=== PATIENT | female | born 1990 | race Caucasian/White ===

== ENCOUNTER → 2016-12-04 | Outpatient (CLI) | payer OTHER ==
--- NOTE | 2016-12-04 14:46 | XR ---
EXAMINATION TYPE: XR chest 2V DATE OF EXAM: 12/04/2016 2:43 PM COMPARISON: NONE HISTORY: 07/13/2016 TECHNIQUE: Frontal and lateral views of the chest are obtained. FINDINGS: There is no focal air space opacity, pleural effusion, or pneumothorax seen. The cardiac silhouette size is within normal limits. Sternotomy wires are in place. The osseous structures are i ntact. IMPRESSION: No acute cardiopulmonary process.
== END | disposition home or self-care (01) ==
LOC: RADXRMAIN 14:22
PROVIDERS: ATTEND Physician Assistant
DX: R07.81 Pleurodynia (principal)
CPT/HCPCS: 71020

== ENCOUNTER 2016-12-28 18:11 | Emergency (ER) | payer OTHER ==
[2016-12-28] MEDS ORDERED: SODIUM CHLORIDE 0.9% 500 ML IV ONE (19:38)
[2016-12-28] MEDS ORDERED: SODIUM CHLORIDE 0.9% 1,000 ML IV SCH (19:45)
--- NOTE | 2016-12-28 19:52 | ED ---
General Adult HPI - General Chief complaint: Headache Stated complaint: Sent by Neurologist/Lethargy Time Seen by Provider: 12/28/16 19:02 Source: patient, family, RN notes reviewed, old records reviewed Mode of arrival: ambulatory Limitations: no limitations - History of Present Illness Initial comments: Chief complaint and history of present illness a 26-year-old female who is being worked up by her neurologist for possibility of MS. Today she had episodes where she had right eye discomfort. No blindness but would last for less than 5 minutes on several occasions then at around 1 PM she had what felt like a profound weakness to her lower extremities that wasn't a sensation of like her legs were sleeping. This is since subsided as well. Otherwise no headache no shortness of breath no GI/ problems. The patient is being worked up for MS she has had an MRI which showed lesions on the right side of her brain she has had an LP which did not show any bands. She was admitted to [facility] 2 years ago with a diagnosis of optic neuritis treated for 7 days with IV steroids with good results. She did have a sore throat and positive for flu approximately 10 days ago. - Related Data Home Medications Medication Instructions Recorded Confirmed Acetaminophen Tab [Tylenol Tab] 650 mg PO Q4H PRN 12/28/16 12/28/16 [place] Fe 12/04 1 tab PO DAILY 12/28/16 12/28/16 Allergies Allergy/AdvReac Type Severity Reaction Status Date / Time gluten Allergy Unknown Verified 12/28/16 19:06 dairy Allergy Unknown Uncoded 12/28/16 18:32 Review of Systems ROS Statement: Those systems with pertinent positive or pertinent negative responses have been documented in the HPI. Review of systems at this time no headache or eye pain. The discomfort comes and goes to the right eye. No sore throat no chest pain or shortness of breath no GI/ problems at this time. Mild generalized weakness. All systems were otherwise reviewed. Past medical problems significant for possibility of MS still being worked up. Patient's nonsmoker drinks alcohol rarely. Surgeries include adenoids and open heart surgery which is 4 years old closed ASD. Also possibility of POTS. ROS Other: All systems not noted in ROS Statement are negative. Past Medical History Past Medical History: Neurologic Disorder Additional Past Medical History / Comment(s): POTS,. tests being done to R/O multiple sclerosis History of Any Multi-Drug Resistant Organisms: None Reported Past Surgical History: Adenoidectomy Additional Past Surgical History / Comment(s): Open heart for congenital defect , ASD Past Anesthesia/Blood Transfusion Reactions: No Reported Reaction Past Psychological History: No Psychological Hx Reported Smoking Status: Never smoker Past Alcohol Use History: None Reported Past Drug Use History: None Reported - Past Family History Sister(s) Family Medical History: No Reported History Additional Family Medical History / Comment(s): kidney issues General Exam - General Exam Comments Initial Comments: General: The patient is awake and alert, in no distress, and does not appear acutely ill. Currently symptom free. Vital signs showed temperature 97.9 pulse 77 respiratory rate 18 pulse ox 99% room air blood pressure 128/80. Eye: Pupils are equal, round and reactive to light, extra-ocular movements are intact ; there is normal conjunctiva bilaterally. No signs of icterus. No eye pain at this time. Ears, nose, mouth and throat: There are moist mucous membranes and no oral lesions. Neck: The neck is supple, there is no tenderness . Cardiovascular: There is a regular rate and rhythm. No murmur, rub or gallop is appreciated. Respiratory: Lungs are clear to auscultation, respirations are non-labored, breath sounds are equal. No wheezes, stridor, rales, or rhonchi. Gastrointestinal: Soft, non-distended, non-tender abdomen without masses or organomegaly noted. There is no rebound or guarding present. No CVA tenderness. Bowel sounds are unremarkable. Back: There is no tenderness to palpation in the midline. There is no obvious deformity. No rashes noted. Musculoskeletal: Normal ROM, no tenderness, There is no pedal edema. There is no calf tenderness or swelling. Sensation intact. Pulses equal bilaterally 2+. Neurological: CN II-XII intact, There are no obvious motor or sensory deficits. Coordination appears grossly intact. Speech is normal. No focal or lateralizing findings. Skin: Skin is warm and dry and no rashes or lesions are noted. Limitations: no limitations Course Vital Signs 12/28/16 18:29 Temperature 97.9 F Pulse Rate 77 Respiratory 18 Rate Blood Pressure 128/80 O2 Sat by Pulse 99 Oximetry Medical Decision Making - Medical Decision Making Medical decision-making. Patient's white count 4.7 hemoglobin 13 hematocrit 37. Potassium is 4.3 and sodium is 141. BUN 9 creatinine 0.7 with a GFR greater than 60. Glucose 86. We did discuss being admitted with IV steroids for treatment for what might be a recurrent episode of her MS. The patient has decided not to be admitted today she has she feels tomorrow and discuss it with her neurologist in the city and make a decision at that time. She states she is symptom-free at this time. - Lab Data Result diagrams: 12/28/16 20:15 12/28/16 20:15 Lab Results 12/28/16 12/28/16 Range/Units 20:15 20:15 WBC 4.7 (3.8-10.6) k/uL RBC 3.91 (3.80-5.40) m/uL Hgb 13.2 (11.4-16.0) gm/dL Hct 37.2 (34.0-46.0) % MCV 95.2 (80.0-100.0) fL MCH 33.7 (25.0-35.0) pg MCHC 35.4 (31.0-37.0) g/dL RDW 12.8 (11.5-15.5) % Plt Count 242 (150-450) k/uL Neutrophils % 53 % Lymphocytes % 35 % Monocytes % 6 % Eosinophils % 2 % Basophils % 0 % Neutrophils # 2.5 (1.3-7.7) k/uL Lymphocytes # 1.6 (1.0-4.8) k/uL Monocytes # 0.3 (0-1.0) k/uL Eosinophils # 0.1 (0-0.7) k/uL Basophils # 0.0 (0-0.2) k/uL Sodium 141 (137-145) mmol/L Potassium 4.3 (3.5-5.1) mmol/L Chloride 105 (98-107) mmol/L Carbon Dioxide 23 (22-30) mmol/L Anion Gap 13 mmol/L BUN 9 (7-17) mg/dL Creatinine 0.72 (0.52-1.04) mg/dL Est GFR (MDRD) Af Amer >60 (>60 ml/min/1.73 sqM) Est GFR (MDRD) Non-Af >60 (>60 ml/min/1.73 sqM) Glucose 88 (74-99) mg/dL Calcium 9.6 (8.4-10.2) mg/dL Total Bilirubin 0.6 (0.2-1.3) mg/dL AST 23 (14-36) U/L ALT 37 (9-52) U/L Alkaline Phosphatase 46 (38-126) U/L Total Protein 7.4 (6.3-8.2) g/dL Albumin 4.2 (3.5-5.0) g/dL Disposition Clinical Impression: Stable multiple sclerosis Disposition: HOME SELF-CARE Condition: Fair Instructions: Autoimmune Disease (ED) Additional Instructions: Talk to your neurologist. Return emergency room as needed. Time of Disposition: 21:33
[2016-12-28 20:35] LABS: Basophils % (A) 0 %; CH 34.4; CHCM 36.3; Eosinophils # (A) 0.1 k/uL (0-0.7); Eosinophils % (A) 2 %; HCT 37.2 % (34.0-46.0); HDW 2.86; HGB 13.2 gm/dL (11.4-16.0); Luc # (Auto) 0.17; Luc % (Auto) 4; Lymphocytes # (A) 1.6 k/uL (1.0-4.8); Lymphocytes % (A) 35 %; MCH 33.7 pg (25.0-35.0); MCHC 35.4 g/dL (31.0-37.0); MCV 95.2 fL (80.0-100.0); Mean Platelet Volume 7.7; Monocytes # (A) 0.3 k/uL (0-1.0); Monocytes % (A) 6 %; Neutrophils # (A) 2.5 k/uL (1.3-7.7); Neutrophils % (A) 53 %; RBC 3.91 m/uL (3.80-5.40); RDW 12.8 % (11.5-15.5); WBC 4.7 k/uL (3.8-10.6); WBC (Perox) 4.84
[2016-12-28 20:56] LABS: ALT 37 U/L (9-52); AST 23 U/L (14-36); Alkaline Phosphatase 46 U/L (38-126); Anion Gap 13 mmol/L; Blood Urea Nitrogen 9 mg/dL (7-17); Calcium 9.6 mg/dL (8.4-10.2); Carbon Dioxide 23 mmol/L (22-30); Chloride 105 mmol/L (98-107); Glucose 88 mg/dL (74-99); Non-African American GFR(MDRD) >60 (>60 ml/min/1.73 sqM); Potassium 4.3 mmol/L (3.5-5.1); Sodium 141 mmol/L (137-145); Total Bilirubin 0.6 mg/dL (0.2-1.3); Total Protein 7.4 g/dL (6.3-8.2)
[2016-12-28 21:47] VITALS: BP 115/68; PULSE 80; RESP 16; TEMP 98.3
== END 2016-12-28 21:47 | disposition home or self-care (01) ==
LOC: EC 18:11
DX: G35 Multiple sclerosis (principal); M35.9 Systemic involvement of connective tissue, unspecified; R51 Headache; Z79.899 Other long term (current) drug therapy; Z91.011 Allergy to milk products; Z91.09 Other allergy status, other than to drugs and biological substances
CPT/HCPCS: 36415; 80053; 85025; 96360; 99284

== ENCOUNTER 2017-01-20 08:10 | Inpatient (IN) | payer OTHER ==
[2017-01-20 09:00] LABS: Appearance,Urine Clear (Clear); Bilirubin,Urine Negative (Negative); Glucose,Urine (UA) Negative (Negative); Ketones,Urine Negative (Negative); Leukocyte Esterase,Urine Negative (Negative); Nitrite,Urine Negative (Negative); Protein,Urine Negative (Negative); Specific Gravity,Urine 1.012 (1.001-1.035); UA Billing (MACRO vs. MICRO) CHEM; Urobilinogen,Urine <2.0 mg/dL (<2.0)
--- NOTE | 2017-01-20 09:02 | ED ---
Neuro HPI <Sarthak Blood - Last Filed: 01/20/17 10:44> - General Source: patient, RN notes reviewed Mode of arrival: ambulatory Limitations: no limitations - History of Present Illness Is the patient presenting with stroke symptoms?: No <Russell Madera - Last Filed: 01/20/17 10:46> - General Chief Complaint: Neuro Symptoms/Deficit Stated Complaint: difficulty seeing left eye Time Seen by Provider: 01/20/17 08:22 - History of Present Illness Initial Comments: This a 26-year-old female presents emergency Department with chief complaint of visual loss to her left eye. Patient states that she woke up early this morning around 3 or 4 with left eye pain but did not put her glasses on at that time. Patient states that when she did finally wake up and put her glass and she noted that she had some visual changes and loss of her left eye. Patient states since that her symptoms have progressively gotten worse. Patient states that she has had optic neuritis in the past treated with steroids which resulted. Patient states she is currently seeing a neurologist because of her symptoms of MS. Patient has multiple lesions on her MRI though her lumbar puncture was negative. Patient states that she has recurrent bouts of weakness , shooting type pains in her extremities. Patient states most the time she has been treated with steroids and symptoms to resolve. Patient states she was here 2 weeks ago and was told that she needed be admitted for possible MS exacerbation and that they warned her about possible visual loss though she declined at that time. Patient states now she is presenting with these symptoms. Patient states when she had optic neuritis in the past she had visual loss in both eyes. (Russell Madera) - Related Data Home Medications: Home Medications Medication Instructions Recorded Confirmed Acetaminophen Tab [Tylenol Tab] 650 mg PO Q4H PRN 12/28/16 01/20/17 [place] Fe 12/04 1 tab PO DAILY 12/28/16 01/20/17 Allergies/Adverse Reactions: Allergies Allergy/AdvReac Type Severity Reaction Status Date / Time gluten Allergy Unknown Verified 01/20/17 08:32 dairy Allergy Unknown Uncoded 01/20/17 08:21 Review of Systems ROS Other: All systems not noted in ROS Statement are negative. <Sarthak Blood - Last Filed: 01/20/17 10:44> ROS Other: All systems not noted in ROS Statement are negative. <Russell Madera - Last Filed: 01/20/17 10:46> ROS Statement: Those systems with pertinent positive or pertinent negative responses have been documented in the HPI. General Exam Limitations: no limitations General appearance: alert, in no apparent distress Head exam: Present: atraumatic, normocephalic, normal inspection Eye exam: Present: normal appearance, PERRL, EOMI. Absent: scleral icterus, conjunctival injection, periorbital swelling Pupils: Present: normal accommodation Expanded Eyelids: Normal Inspection: Bilateral Pupils: Regular, Round: Bilateral Sclera/Conjunctival: Normal Inspection: Bilateral Anterior chamber: Normal Inspection: Bilateral Visual acuity (R) = 20/: 25 Visual acuity (L) = 20/: 200 With correction: Yes IOP (L) in mmH IOP measured with: Tonopen ENT exam: Present: normal exam, normal oropharynx, mucous membranes moist, TM's normal bilaterally, normal external ear exam Neck exam: Present: normal inspection, full ROM. Absent: tenderness, meningismus, lymphadenopathy Respiratory exam: Present: rhonchi (Right). Absent: normal lung sounds bilaterally, respiratory distress, wheezes, rales, stridor Cardiovascular Exam: Present: regular rate, normal rhythm, normal heart sounds. Absent: systolic murmur, diastolic murmur, rubs, gallop, clicks Neurological exam: Present: alert, oriented X3, CN II-XII intact, reflexes normal, other (Finger to nose intact bilaterally without over shooting.). Absent: motor sensory deficit Skin exam: Present: warm, dry, intact, normal color. Absent: rash <Russell Madera - Last Filed: 01/20/17 10:46> Stroke MDM - Lab Data Result diagrams: 01/20/17 08:50 01/20/17 08:50 <Sarthak Blood - Last Filed: 01/20/17 10:44> - Lab Data Result diagrams: 01/20/17 08:50 01/20/17 08:50 <Russell Madera - Last Filed: 01/20/17 10:46> - Lab Data Lab Results 01/20/17 01/20/17 01/20/17 Range/Units 08:40 08:40 08:50 WBC (3.8-10.6) k/uL RBC (3.80-5.40) m/uL Hgb (11.4-16.0) gm/dL Hct (34.0-46.0) % MCV (80.0-100.0) fL MCH (25.0-35.0) pg MCHC (31.0-37.0) g/dL RDW (11.5-15.5) % Plt Count (150-450) k/uL Neutrophils % % Lymphocytes % % Monocytes % % Eosinophils % % Basophils % % Neutrophils # (1.3-7.7) k/uL Lymphocytes # (1.0-4.8) k/uL Monocytes # (0-1.0) k/uL Eosinophils # (0-0.7) k/uL Basophils # (0-0.2) k/uL ESR (0-20) mm/hr Sodium 143 (137-145) mmol/L Potassium 3.9 (3.5-5.1) mmol/L Chloride 104 (98-107) mmol/L Carbon Dioxide 26 (22-30) mmol/L Anion Gap 13 mmol/L BUN 13 (7-17) mg/dL Creatinine 0.74 (0.52-1.04) mg/dL Est GFR (MDRD) Af Amer >60 (>60 ml/min/1.73 sqM) Est GFR (MDRD) Non-Af >60 (>60 ml/min/1.73 sqM) Glucose 92 (74-99) mg/dL Calcium 9.7 (8.4-10.2) mg/dL Total Bilirubin 0.8 (0.2-1.3) mg/dL AST 20 (14-36) U/L ALT 28 (9-52) U/L Alkaline Phosphatase 55 (38-126) U/L C-Reactive Protein <5.0 (<10.0) mg/L Total Protein 8.2 (6.3-8.2) g/dL Albumin 4.7 (3.5-5.0) g/dL Urine Color Yellow Urine Appearance Clear (Clear) Urine pH 6.0 (5.0-8.0) Ur Specific [place] 1.012 (1.001-1.035) Urine Protein Negative (Negative) Urine Glucose (UA) Negative (Negative) Urine Ketones Negative (Negative) Urine Blood Negative (Negative) Urine Nitrate Negative (Negative) Urine Bilirubin Negative (Negative) Urine Urobilinogen <2.0 (<2.0) mg/dL Ur Leukocyte Esterase Negative (Negative) Urine HCG, Qual Not Detected (Not Detectd) 01/20/17 Range/Units 08:50 WBC 4.8 (3.8-10.6) k/uL RBC 4.21 (3.80-5.40) m/uL Hgb 14.4 (11.4-16.0) gm/dL Hct 39.5 (34.0-46.0) % MCV 93.9 (80.0-100.0) fL MCH 34.2 (25.0-35.0) pg MCHC 36.4 (31.0-37.0) g/dL RDW 12.8 (11.5-15.5) % Plt Count 240 (150-450) k/uL Neutrophils % 63 % Lymphocytes % 28 % Monocytes % 5 % Eosinophils % 2 % Basophils % 1 % Neutrophils # 3.0 (1.3-7.7) k/uL Lymphocytes # 1.3 (1.0-4.8) k/uL Monocytes # 0.2 (0-1.0) k/uL Eosinophils # 0.1 (0-0.7) k/uL Basophils # 0.0 (0-0.2) k/uL ESR 8 (0-20) mm/hr Sodium (137-145) mmol/L Potassium (3.5-5.1) mmol/L Chloride (98-107) mmol/L Carbon Dioxide (22-30) mmol/L Anion Gap mmol/L BUN (7-17) mg/dL Creatinine (0.52-1.04) mg/dL Est GFR (MDRD) Af Amer (>60 ml/min/1.73 sqM) Est GFR (MDRD) Non-Af (>60 ml/min/1.73 sqM) Glucose (74-99) mg/dL Calcium (8.4-10.2) mg/dL Total Bilirubin (0.2-1.3) mg/dL AST (14-36) U/L ALT (9-52) U/L Alkaline Phosphatase (38-126) U/L C-Reactive Protein (<10.0) mg/L Total Protein (6.3-8.2) g/dL Albumin (3.5-5.0) g/dL Urine Color Urine Appearance (Clear) Urine pH (5.0-8.0) Ur Specific [place] (1.001-1.035) Urine Protein (Negative) Urine Glucose (UA) (Negative) Urine Ketones (Negative) Urine Blood (Negative) Urine Nitrate (Negative) Urine Bilirubin (Negative) Urine Urobilinogen (<2.0) mg/dL Ur Leukocyte Esterase (Negative) Urine HCG, Qual (Not Detectd) Past Medical History Past Medical History: Neurologic Disorder Additional Past Medical History / Comment(s): POTS,. tests being done to R/O multiple sclerosis History of Any Multi-Drug Resistant Organisms: None Reported Past Surgical History: Adenoidectomy Additional Past Surgical History / Comment(s): Open heart for congenital defect , ASD Past Anesthesia/Blood Transfusion Reactions: No Reported Reaction Past Psychological History: No Psychological Hx Reported Smoking Status: Never smoker Past Alcohol Use History: None Reported Past Drug Use History: None Reported - Past Family History Sister(s) Family Medical History: No Reported History Additional Family Medical History / Comment(s): kidney issues <Russell Madera - Last Filed: 01/20/17 10:46> Course <Sarthak Blood - Last Filed: 01/20/17 10:44> <Russell Madera - Last Filed: 01/20/17 10:46> Vital Signs 01/20/17 01/20/17 08:17 09:59 Temperature 99.2 F Pulse Rate 87 81 Respiratory 16 18 Rate Blood Pressure 137/84 126/73 O2 Sat by Pulse 99 99 Oximetry - Reevaluation(s) Reevaluation #1: 01/20/17 10:44 Patient reevaluated by myself, Dr. Blood. Patient states she has had similar episodes approximate 4 times previously associated with optic neuritis. Patient states she has had visual loss since she woke this morning, somewhat worse than when she woke. Patient has mild discomfort and states that is somewhat chronic. Patient is being evaluated for MS. Patient had MRI with brain lesions however had a negative lumbar puncture. Pupils equal round reactive to light. Funduscopic exam without acute abnormality. Case was discussed in detail with Dr. De Anda, who will admit his patient. Consults will be placed with neurology and ophthalmology. (Sarthak Blood) Disposition <Sarthak Blood - Last Filed: 01/20/17 10:44> <Russell Madera - Last Filed: 01/20/17 10:46> Clinical Impression: Optic neuritis, Visual changes Disposition: ADMITTED IP TO THIS HOSP Condition: Stable
[2017-01-20 09:20] LABS: ALT 28 U/L (9-52); AST 20 U/L (14-36); Alkaline Phosphatase 55 U/L (38-126); Anion Gap 13 mmol/L; Blood Urea Nitrogen 13 mg/dL (7-17); Calcium 9.7 mg/dL (8.4-10.2); Carbon Dioxide 26 mmol/L (22-30); Chloride 104 mmol/L (98-107); Glucose 92 mg/dL (74-99); Non-African American GFR(MDRD) >60 (>60 ml/min/1.73 sqM); Potassium 3.9 mmol/L (3.5-5.1); Sodium 143 mmol/L (137-145); Total Bilirubin 0.8 mg/dL (0.2-1.3); Total Protein 8.2 g/dL (6.3-8.2)
[2017-01-20 09:33] LABS: Basophils % (A) 1 %; CH 34.3; CHCM 36.7; Eosinophils # (A) 0.1 k/uL (0-0.7); Eosinophils % (A) 2 %; HCT 39.5 % (34.0-46.0); HDW 2.92; HGB 14.4 gm/dL (11.4-16.0); Luc # (Auto) 0.13; Luc % (Auto) 3; Lymphocytes # (A) 1.3 k/uL (1.0-4.8); Lymphocytes % (A) 28 %; MCH 34.2 pg (25.0-35.0); MCHC 36.4 g/dL (31.0-37.0); MCV 93.9 fL (80.0-100.0); Mean Platelet Volume 8.1; Monocytes # (A) 0.2 k/uL (0-1.0); Monocytes % (A) 5 %; Neutrophils % (A) 63 %; RBC 4.21 m/uL (3.80-5.40); RDW 12.8 % (11.5-15.5); WBC 4.8 k/uL (3.8-10.6); WBC (Perox) 4.93
--- NOTE | 2017-01-20 09:52 | XR ---
EXAMINATION TYPE: XR chest 2V DATE OF EXAM: 01/20/2017 9:48 AM COMPARISON: 12/04/2016 INDICATION: Pain visual disturbance left eye asthma TECHNIQUE: Single frontal view of the chest is obtained. FINDINGS: The heart size is normal. The pulmonary vasculature is normal. The lungs are clear. Sternotomy wires are noted. No significant interval changes evident. IMPRESSION: 1. No acute pulmonary process.
[2017-01-20 10:16] LABS: C Reactive Protein <5.0 mg/L (<10.0)
--- NOTE | 2017-01-20 10:27 | CT ---
EXAMINATION TYPE: CT brain wo con DATE OF EXAM: 01/20/2017 10:24 AM COMPARISON: NONE HISTORY: Patient complains of increasing blurriness of left eye vision starting this AM. CT DLP: 1000.[address] of the brain was performed. The ventricles, basal cisterns and sulci overlying the cerebral convexities demonstrate a normal appe arance. There is no evidence for intracranial hemorrhage or sulcal effacement. No mass effects are seen. Osseous calvarium is intact. If symptoms persist consider MRI as clinically warranted. IMPRESSION: 1. No acute intracranial process is seen at this time.
[2017-01-20 10:41] LABS: Erythrocyte Sedimentation Rate 8 mm/hr (0-20)
[2017-01-20] MEDS ORDERED: NALOXONE 0.4 MG/ML 1 ML VIAL IV PRN (10:47)
[2017-01-20] MEDS ORDERED: ONDANSETRON 4 MG/2 ML VIAL IVP PRN (10:47)
[2017-01-20 16:22] VITALS: BMI 28.3
[2017-01-20 17:05] LABS: Glucose,Whole Blood 133 mg/dL (75-99)
[2017-01-20] MEDS: INSULIN LISPRO (humaLOG) 300 UNIT/3 ML VIAL SQ SCH ×2 (17:51→21:19)
[2017-01-20 18:47] LABS: Hemoglobin A1C 4.4 % (4.2-6.1)
--- NOTE | 2017-01-20 19:49 | P.CNNES ---
History of Present Illness Consult date: 01/20/17 Reason for Consult: Patient with acute optic neuritis and probable MS. History of Present Illness: This patient is a 26-year-old right-handed white female who was admitted to hospital with acute left eye vision loss this morning. According to the patient she woke this morning and was unable to see out of her left eye. She has had 4 other episodes of optic neuritis in the past. Patient is undergone extensive evaluation for multiple sclerosis over the last several years. She is currently being followed by an MS specialist at the [facility]. She was seen by the specialist several times last year and a definitive diagnosis of MS has not been given. She underwent a lumbar puncture last year which was negative for MS. She was started on Copaxone but was discontinued off of the treatment for MS as a definitive diagnosis could not be reached last year. The patient as noted has had several episodes of optic neuritis involving both eyes. She complains of weakness and muscle weakness in the legs. She has undergone MRI of the brain last year which did reveal white matter changes in the cerebral hemispheres. Apparently she continues to follow with her MS specialists in [place] and is awaiting of recheck with her now that she has been readmitted for MS type symptoms. The patient was seen in the ER and underwent a computed tomography scan of the brain which was reported negative for any acute changes. She was started on IV Solu-Medrol and admitted to the hospital. She was seen by ophthalmology today who had diagnosed her with left eye optic neuritis. She will need IV Solu-Medrol for 3 days followed by a slow prednisone taper. Patient is advised to follow-up with her MS specialist. Since a definitive diagnosis has not been made we suggest that she be seen in a specialized MS clinic at either the [facility] or [facility]. The patient has had multiple bouts suggesting MS exacerbation. As noted a definitive diagnosis has not been given. We will continue to follow her progress during this admission and have recommended to continue with IV Solu-Medrol at this time. Her overall prognosis at this time remains guarded. Review of Systems Constitutional: Denies chills, Denies fever Eyes: denies blurred vision, denies pain Ears, nose, mouth and throat: Denies headache, Denies sore throat Cardiovascular: Denies chest pain, Denies shortness of breath Respiratory: Denies cough Gastrointestinal: Denies abdominal pain, Denies diarrhea, Denies nausea, Denies vomiting Genitourinary: Denies dysuria, Denies hematuria Musculoskeletal: Denies myalgias Integumentary: Denies pruritus, Denies rash Neurological: Reports double vision, Reports headaches, Reports loss of vision, Reports paresthesias, Reports spasticity, Reports visual changes, Denies numbness, Denies weakness Psychiatric: Denies anxiety, Denies depression Endocrine: Denies fatigue, Denies weight change Past Medical History Past Medical History: Eye Disorder, Neurologic Disorder, Syncope Additional Past Medical History / Comment(s): Optic neuritis in past (has caused visual loss bilateral eyes), POTS-hyponatremia and has had past syncopal episode, bouts of weakness and shooting pain down extremities at times-being worked up for MS, MRI showed lesions/LP was negative per pt, possible asthma. 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 Past Anesthesia/Blood Transfusion Reactions: No Reported Reaction Past Psychological History: No Psychological Hx Reported Additional Psychological History / Comment(s): Pt resides with her cristinee. She uses a cane and has in the past used a walker during her "flare ups". She drives. Smoking Status: Never smoker Past Alcohol Use History: Rare Past Drug Use History: None Reported - Past Family History Sister(s) History Unknown: Yes Family Medical History: No Reported History Additional Family Medical History / Comment(s): Pt was adopted. Father History Unknown: Yes Additional Family Medical History / Comment(s): Pt was adopted. Medications and Allergies Home Medications Medication Instructions Recorded Confirmed Type Acetaminophen Tab [Tylenol Tab] 650 mg PO Q4H PRN 12/28/16 01/20/17 History Blisovi Fe 12/04 1 tab PO DAILY 12/28/16 01/20/17 History Allergies Allergy/AdvReac Type Severity Reaction Status Date / Time gluten Allergy Unknown Verified 01/20/17 08:32 dairy Allergy Unknown Uncoded 01/20/17 08:21 Physical Examination - Vital Signs Vital Signs: Vital Signs Temp Pulse Resp BP Pulse Ox 01/20/17 12:15 16 01/20/17 11:43 98 F 80 16 111/63 100 Intake and Output 01/20/17 01/20/17 01/20/17 06:59 14:59 22:59 Intake Total 250 Balance 250 Intake: Intake, IV Titration 250 Amount methylPREDNISolone SOD 250 SUCC 250 mg In Sodium Chloride 0.9% 100 ml @ 100 mls/hr IVPB ONCE STA Rx#:[id number] Other: Voiding Method Toilet Weight 68.039 kg Patient Weight 01/21/17 06:59 Weight 68.039 kg - Constitutional General appearance: average body habitus, cooperative - EENT EENT: PERRL, mucous membranes moist - Respiratory Respiratory: lungs clear, normal breath sounds - Cardiovascular Cardiovascular: regular rate, normal S1, normal S2 Extremities: no peripheral edema bilaterally - Gastrointestinal Gastrointestinal: normoactive bowel sounds - Integumentary Integumentary: normal - Neurologic Cranial nerve examination: PERRL, EOMI, VFF, V1/V2/V3 grossly intact, face symmetric, intact gag reflex, intact corneal reflex, normal palatal elevation Speech examination: intact Sensorimotor examination: intact Detailed motor examination: grossly full strength in all extremities Motor examination - right side: 5/5: biceps, triceps, wrist flexion, wrist extension, restoration technician, hip flexors, knee extensors, dorsiflexion, toe extension (EHL) , plantarflexion Motor examination - left side: 5/5: biceps, triceps, wrist flexion, wrist extension, restoration technician, hip flexors, knee extensors, dorsiflexion, toe extension (EHL) , plantarflexion Detailed sensory examination: intact Reflex and gait examination: intact Reflexes: 2+: ankle, bicep, knee, tricep - Musculoskeletal Musculoskeletal: no pain - Psychiatric Psychiatric: mood/affect appropriate, cooperative Results - Laboratory Findings CBC and BMP: 01/20/17 08:50 01/20/17 08:50 Assessment and Plan (1) Ischemic optic neuritis of left eye Status: Acute Code(s): H47.012 - ISCHEMIC OPTIC NEUROPATHY, LEFT EYE (2) Multiple sclerosis Status: Acute Code(s): G35 - MULTIPLE SCLEROSIS Plan: This patient is a 26-year-old female was admitted to hospital with acute visual loss involving her left eye. She was brought into the emergency room where she underwent a computed tomography scan of the brain which was negative for any acute changes. She has a history suggesting probable multiple sclerosis. She has been followed by MS specialist at the [facility]. She was initially treated for MS and started on interferon therapy but this was discontinued last year as a definitive diagnosis could not be reached. Patient was seen by ophthalmology today and they have confirmed left eye optic neuritis. We have recommended that she continue on IV Solu-Medrol for 3 days with slow tapering with oral prednisone at time of discharge. Patient is advised to follow-up with her MS specialists at the [facility] and possibly seek a second opinion at the [facility] or [facility]. We have reviewed all of her recent MRI studies which are suggesting probable MS. At this time we will continue treatment of the acute optic neuritis and will have her follow-up with her specialists upon discharge. Her overall prognosis at this time remains guarded. Time with Patient: Greater than 30
[2017-01-20 21:04] LABS: Glucose,Whole Blood 150 mg/dL (75-99)
[2017-01-21 06:57] LABS: Glucose,Whole Blood 160 mg/dL (75-99)
[2017-01-21] MEDS: INSULIN LISPRO (humaLOG) 300 UNIT/3 ML VIAL SQ SCH ×4 (07:44→22:01)
--- NOTE | 2017-01-21 11:33 | P.HPIM ---
History of Present Illness 26-year-old female presented emergency room with complaints of visual disturbance to left eye. Patient states she has had history of optic neuritis. Patient has been having several workups regarding possible MS on cherub diagnosis. History of POTS History of asthma History of ASD congenital defect repair.patient states she continues with visual distortion to left eye Review of Systems Neurological: Reports visual changes Past Medical History Past Medical History: Eye Disorder, Neurologic Disorder, Syncope Additional Past Medical History / Comment(s): Optic neuritis in past (has caused visual loss bilateral eyes), POTS-hyponatremia and has had past syncopal episode, bouts of weakness and shooting pain down extremities at times-being worked up for MS, MRI showed lesions/LP was negative per pt, possible asthma. 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 Past Anesthesia/Blood Transfusion Reactions: No Reported Reaction Past Psychological History: No Psychological Hx Reported Additional Psychological History / Comment(s): Pt resides with her fiancee. She uses a cane and has in the past used a walker during her "flare ups". She drives. Smoking Status: Never smoker Past Alcohol Use History: Rare Past Drug Use History: None Reported - Past Family History Sister(s) History Unknown: Yes Family Medical History: No Reported History Additional Family Medical History / Comment(s): Pt was adopted. Father History Unknown: Yes Additional Family Medical History / Comment(s): Pt was adopted. Medications and Allergies Home Medications Medication Instructions Recorded Confirmed Type Acetaminophen Tab [Tylenol Tab] 650 mg PO Q4H PRN 12/28/16 01/20/17 History Blisovi Fe 12/04 1 tab PO DAILY 12/28/16 01/20/17 History Allergies Allergy/AdvReac Type Severity Reaction Status Date / Time gluten Allergy Unknown Verified 01/20/17 08:32 dairy Allergy Unknown Uncoded 01/20/17 08:21 Physical Exam Vitals: Vital Signs Temp Pulse Pulse Resp BP BP Pulse Ox 01/21/17 08:00 89 18 01/21/17 07:00 98.7 F 89 18 103/66 95 01/20/17 23:00 98.6 F 91 20 100/58 97 01/20/17 15:00 98.4 F 97 16 114/77 97 01/20/17 12:15 16 01/20/17 12:00 98.7 F 90 16 123/69 99 01/20/17 11:43 98 F 80 16 111/63 100 Intake and Output 01/20/17 01/21/17 01/21/17 22:59 06:59 14:59 Intake Total 100 240 Balance 100 240 Intake: Intake, IV Titration 100 Amount methylPREDNISolone SOD 100 SUCC 250 mg In Sodium Chloride 0.9% 100 ml @ 100 mls/hr IVPB Q6HR SARAH Rx#:[id number] Oral 240 Other: Voiding Method Toilet # Voids 2 - Constitutional General appearance: mild distress - EENT left eye blurry vision Eyes: PERRLA Ears: bilateral: normal - Neck Neck: normal ROM - Respiratory Respiratory: bilateral: CTA - Cardiovascular Rhythm: regular Abnormal Heart Sounds: systolic murmur - Gastrointestinal General gastrointestinal: soft - Integumentary Integumentary: normal - Neurologic Neurologic: CNII-XII intact - Musculoskeletal Musculoskeletal: gait normal - Psychiatric Psychiatric: A&O x's 3, appropriate affect, intact judgment & insight Results CBC & Chem 7: 01/20/17 08:50 01/20/17 08:50 Labs: Abnormal Lab Results - Last 24 Hours (Table) 01/20/17 01/20/17 01/21/17 Range/Units 17:02 21:02 06:48 POC Glucose (mg/dL) 133 H 150 H 160 H (75-99) mg/dL Chest x-ray: report reviewed CT Scan - head: report reviewed Thrombosis Risk Factor Assmnt - Choose All That Apply Any of the Below Risk Factors Present?: Yes Each Factor Represents 1 point: Obesity (BMI >25), Oral contraceptives or hormone replacement therapy Other Risk Factors: No Other congenital or acquired thrombophilia - If yes, enter type in comment: No Thrombosis Risk Factor Assessment Total Risk Factor Score: 2 Thrombosis Risk Factor Assessment Level: Low Risk Assessment and Plan Plan: assessment Left eye optic neuritis Recurrent History of POTS Repair of ASD Asthma Multiple sclerosis needs another opinion regarding this diagnosis Plan Patient on steroids Continue consultation with neurology and ophthalmology
[2017-01-21 12:10] LABS: Glucose,Whole Blood 198 mg/dL (75-99)
--- NOTE | 2017-01-21 13:36 | CONS ---
DATE OF CONSULTATION: DATE OF SERVICE: 01/20/2017 CHIEF COMPLAINT: Poor vision left eye. HISTORY OF PRESENT ILLNESS: Ileana Vo is a 26-year-old female who reports decreased vision in her left eye, which began this morning. She noticed some discomfort and pain with eye movements and decreased vision that has been constant and stable since early this morning. There is no complete vision loss. There is no double vision. There are no other associated symptoms. She does report episode of optic neuritis in the past that was treated with steroids and improved. She also reports a history of multiple sclerosis. REVIEW OF SYSTEMS: As above, otherwise negative. PAST MEDICAL HISTORY: Significant for multiple sclerosis and one previous episode of optic neuritis. SURGICAL HISTORY: Adenoidectomy. MEDICATIONS: No home medications reported. ALLERGIES: Patient is allergic to GLUTEN and DAIRY. SOCIAL HISTORY: Patient denies any tobacco use. She reports occasional alcohol use. OPHTHALMIC EXAM: Visual acuity is 20/40 in the right eye and 20/60 in the left eye without correction at near. Intraocular pressure is normal in both eyes. Pupillary exam reveals normal reactive pupils with no afferent pupillary defect. The lid and conjunctiva are normal. The cornea is clear. The anterior chamber is within normal limits. The lens is clear. Posterior examination reveals very faint elevation of the left optic nerve; otherwise within normal limits. ASSESSMENT AND PLAN: 1. Optic neuritis, left eye. Patient reports a history of multiple sclerosis and previous optic neuritis. Her symptoms are consistent with an episode of optic neuritis in her left eye. The patient does not have an afferent pupillary defect on exam today. This may be due to the fact that she has already started receiving IV steroid treatment. However, the rest of the history and exam is consistent with optic neuritis. I do believe treating her for optic neuritis is the best option at this time. I agree with continuing a total of 1 gram of methylprednisolone IV daily for 3 days. This should be followed by a taper of oral prednisone starting at 60 mg daily to be tapered over an 11-day period. This should be discussed with the patient prior to discharge. I also recommended evaluation with Neurology. She should undergo MRI of the brain and possible lumbar puncture per the discretion of the neurology team. I recommend she follow up as an outpatient in my office one week after discharge. 2. Mild keratitis, left eye. This is likely not significant. However the patient appears to have an episode of keratitis with possible recurrent corneal erosions. I recommend use of artificial tears as needed up to 4 times daily for discomfort. Thank you for allowing me to participate in this patient's care.
[2017-01-21] MEDS: ACETAMINOPHEN TAB 325 MG TAB PO PRN (14:04)
[2017-01-21 16:57] LABS: Glucose,Whole Blood 181 mg/dL (75-99)
--- NOTE | 2017-01-21 20:41 | P.PN ---
Subjective This patient is a 26-year-old female who was admitted to hospital with acute left eye vision loss. She awoke yesterday morning and was unable to see out of her left eye. She was seen by ophthalmology and was diagnosed with optic neuritis. She has had 4 bouts of optic neuritis in the past. She has been evaluated at several neurological clinics for multiple sclerosis. A definitive diagnosis has not been made. Her spinal fluid analysis and MRI results were reviewed with the patient yesterday. Her last spinal tap was negative for multiple sclerosis. She does not wish to have a repeat spinal tap at this hospital at this time. We have recommended that she have a second opinion with her neurologist at the [facility] and be referred to a major MS clinic for further diagnostic workup and clarification of her diagnosis of probable MS. She is on day 2 of IV Solu-Medrol and should continue for 3 day course. Patient states her vision remains unchanged in the left eye. We will await further reevaluation from ophthalmology. We are recommending the patient to be seen in the [facility] MS clinic upon discharge from this hospital for further workup and evaluation of her provisional diagnosis of MS. She will be tapered on prednisone at the time of discharge. Patient is being followed by ophthalmology. Ophthalmology confirms the finding of optic neuritis in her left eye at this time. We will continue close neurological follow-up for the patient. Her overall prognosis at this time remains guarded. Objective - Vital Signs Vital signs: Vital Signs Temp 99.0 F 01/21/17 15:00 Pulse 87 01/21/17 16:00 Resp 16 01/21/17 16:00 BP 111/65 01/21/17 15:00 Pulse Ox 97 01/21/17 15:00 Intake & Output 01/20/17 01/21/17 01/21/17 18:59 06:59 18:59 Intake Total 250 100 240 Balance 250 100 240 Weight 68.039 kg Intake: Intake, IV Titration 250 100 Amount methylPREDNISolone SOD 250 SUCC 250 mg In Sodium Chloride 0.9% 100 ml @ 100 mls/hr IVPB ONCE STA Rx#:[id number] methylPREDNISolone SOD 100 SUCC 250 mg In Sodium Chloride 0.9% 100 ml @ 100 mls/hr IVPB Q6HR SARAH Rx#:[id number] Oral 240 Other: Voiding Method Toilet Toilet # Voids 2 2 - Exam Physical examination: PHYSICAL EXAMINATION: Patient is resting comfortably in bed. VITAL SIGNS: Blood pressure is [112/65]. Heart rate is [87]. Respiration is [16] . Temperature is [99.0]. HEENT: Head is atraumatic, neck is supple, there were no carotid bruits. CHEST: Lungs are clear to auscultation and percussion. CARDIAC: S1, S2 normal rate and rhythm. There is no murmur. ABDOMEN: Soft and nontender. Bowel sounds are present. EXTREMITIES: There is no pedal edema. Peripheral pulses are present. Neurological examination: Patient's neurological examination is unchanged from yesterday. - Labs CBC & Chem 7: 01/20/17 08:50 01/20/17 08:50 Labs: Abnormal Lab Results - Last 24 Hours (Table) 01/20/17 01/21/17 01/21/17 Range/Units 21:02 06:48 11:58 POC Glucose (mg/dL) 150 H 160 H 198 H (75-99) mg/dL 01/21/17 Range/Units 16:54 POC Glucose (mg/dL) 181 H (75-99) mg/dL Assessment and Plan (1) Ischemic optic neuritis of left eye Status: Acute Code(s): H47.012 - ISCHEMIC OPTIC NEUROPATHY, LEFT EYE (2) Multiple sclerosis Status: Acute Code(s): G35 - MULTIPLE SCLEROSIS Plan: This patient is a 26-year-old female was admitted to hospital with acute visual loss involving her left eye. She was brought into the emergency room where she underwent a computed tomography scan of the brain which was negative for any acute changes. She has a history suggesting probable multiple sclerosis. She has been followed by MS specialist at the [facility]. She was initially treated for MS and started on interferon therapy but this was discontinued last year as a definitive diagnosis could not be reached. Patient was seen by ophthalmology today and they have confirmed left eye optic neuritis. We have recommended that she continue on IV Solu-Medrol for 3 days with slow tapering with oral prednisone at time of discharge. Patient is advised to follow-up with her MS specialists at the [facility] and possibly seek a second opinion at the [facility] or [facility]. We have reviewed all of her recent MRI studies which are suggesting probable MS. We specifically recommended the [facility] for this patient who states her primary care physician will make referrals for this to take place soon after she is discharged. She needs a more definitive diagnosis with the MS clinic at the [facility]. We will continue to follow her progress closely. At this time we will continue treatment of the acute optic neuritis and will have her follow- up with her specialists upon discharge. We are waiting further reevaluation by ophthalmology regarding her left optic neuritis. She has not appreciated much change in the left eye. We will plan on possible discharge of this patient Wednesday morning on tapering doses of oral prednisone. Her overall prognosis at this time remains guarded.
[2017-01-21 21:40] LABS: Glucose,Whole Blood 155 mg/dL (75-99)
[2017-01-22] MEDS: ACETAMINOPHEN TAB 325 MG TAB PO PRN (02:18)
[2017-01-22 07:34] LABS: Glucose,Whole Blood 127 mg/dL (75-99)
[2017-01-22] MEDS: INSULIN LISPRO (humaLOG) 300 UNIT/3 ML VIAL SQ SCH ×4 (07:45→20:59)
[2017-01-22 11:51] LABS: Glucose,Whole Blood 143 mg/dL (75-99)
--- NOTE | 2017-01-22 14:29 | P.PN ---
Subjective A 6-year-old female is seen in cross coverage for Dr. De Anda. Patient apparently had some change in vision on the left side. Patient has had significant workup in regards to multiple sclerosis in the past apparently the diagnosis is unclear as patient was noted to have some demyelinating lesions however CSF did not note any leukocytic pleocytosis. Patient apparently was even started on Glatiramer acetate and did not tolerate it. States patient was started on steroids during this admission states her vision is improved denies having any further episodes of weakness or numbness. Objective - Vital Signs Vital signs: Vital Signs Temp 97.8 F 01/22/17 07:00 Pulse 73 01/22/17 08:00 Resp 16 01/22/17 08:00 BP 111/70 01/22/17 07:00 Pulse Ox 96 01/22/17 07:00 Intake & Output 01/21/17 01/22/17 01/22/17 18:59 06:59 18:59 Intake Total 240 Balance 240 Intake: Oral 240 Other: Voiding Method Toilet Toilet # Voids 2 2 - Exam - Exam Physical exam Gen. appearance oriented 3 in no distress Neck is supple no JVD Lungs no rhonchi, wheezing, crackles good air movement Heart S1-S2 heard regular rate and rhythm no murmurs appreciated Abdomen is soft nontender no organomegaly bowel sounds are intact Neurologically cranial nerves II-12 grossly intact no focal motor or sensory deficits notedExtra ocular movements intact. - Labs CBC & Chem 7: 01/20/17 08:50 01/20/17 08:50 Labs: Abnormal Lab Results - Last 24 Hours (Table) 01/21/17 01/21/17 01/22/17 Range/Units 16:54 21:37 07:30 POC Glucose (mg/dL) 181 H 155 H 127 H (75-99) mg/dL 01/22/17 Range/Units 11:47 POC Glucose (mg/dL) 143 H (75-99) mg/dL Assessment and Plan Plan: #1 optic neuritis likely secondary to Demyelinating process likely MS plan Patient is to complete her steroid burst and Dr. Vasquez has recommended patient follow-up with [facility] to undergo extensive workup in regards to ruling out or ruling and other demyelinating illnesses as well. Patient will be tapered on discharge tomorrow patient is encouraged to ambulate. Gi prophylaxis will be added as patient is on high-dose steroids.
[2017-01-22 17:06] LABS: Glucose,Whole Blood 131 mg/dL (75-99)
--- NOTE | 2017-01-22 17:57 | P.PN ---
Subjective This patient is a 26-year-old female who was admitted to hospital with acute left eye vision loss. She awoke yesterday morning and was unable to see out of her left eye. She was seen by ophthalmology and was diagnosed with optic neuritis. She has had 4 bouts of optic neuritis in the past. She has been evaluated at several neurological clinics for multiple sclerosis. A definitive diagnosis has not been made. Her spinal fluid analysis and MRI results were reviewed with the patient yesterday. Her last spinal tap was negative for multiple sclerosis. She does not wish to have a repeat spinal tap at this hospital at this time. We have recommended that she have a second opinion with her neurologist at the [facility] and be referred to a major MS clinic for further diagnostic workup and clarification of her diagnosis of probable MS. She is on day 2 of IV Solu-Medrol and should continue for 3 day course. Patient states her vision remains unchanged in the left eye. We will await further reevaluation from ophthalmology. We are recommending the patient to be seen in the [facility] MS clinic upon discharge from this hospital for further workup and evaluation of her provisional diagnosis of MS. She will be tapered on prednisone at the time of discharge. Patient is being followed by ophthalmology. Ophthalmology confirms the finding of optic neuritis in her left eye at this time. Patient states there is some improvement with her vision today. She will complete 3 days of IV Solu-Medrol tonight and should be stable for discharge home tomorrow morning. She should begin on oral prednisone taper starting at 60 mg daily with 10 mg reduction every week over the next 6 weeks. Patient is once again instructed follow-up with the [facility] MS clinic. We will continue close neurological follow-up for the patient. Her overall prognosis at this time remains guarded. Objective - Vital Signs Vital signs: Vital Signs Temp 98.3 F 01/22/17 15:00 Pulse 77 01/22/17 15:00 Resp 16 01/22/17 15:00 BP 115/65 01/22/17 15:00 Pulse Ox 95 01/22/17 15:00 Intake & Output 01/21/17 01/22/17 01/22/17 18:59 06:59 18:59 Intake Total 240 Balance 240 Intake: Oral 240 Other: Voiding Method Toilet Toilet # Voids 2 2 3 - Exam Physical examination: PHYSICAL EXAMINATION: Patient is resting comfortably in bed. VITAL SIGNS: Blood pressure is [115/65]. Heart rate is [77]. Respiration is [16] . Temperature is [98.3]. HEENT: Head is atraumatic, neck is supple, there were no carotid bruits. CHEST: Lungs are clear to auscultation and percussion. CARDIAC: S1, S2 normal rate and rhythm. There is no murmur. ABDOMEN: Soft and nontender. Bowel sounds are present. EXTREMITIES: There is no pedal edema. Peripheral pulses are present. Neurological examination: Patient's neurological examination is unchanged from yesterday. - Labs CBC & Chem 7: 01/20/17 08:50 01/20/17 08:50 Labs: Abnormal Lab Results - Last 24 Hours (Table) 01/21/17 01/21/17 01/22/17 Range/Units 16:54 21:37 07:30 POC Glucose (mg/dL) 181 H 155 H 127 H (75-99) mg/dL 01/22/17 Range/Units 11:47 POC Glucose (mg/dL) 143 H (75-99) mg/dL Assessment and Plan (1) Ischemic optic neuritis of left eye Status: Acute Code(s): H47.012 - ISCHEMIC OPTIC NEUROPATHY, LEFT EYE (2) Multiple sclerosis Status: Acute Code(s): G35 - MULTIPLE SCLEROSIS
[2017-01-22 20:57] LABS: Glucose,Whole Blood 210 mg/dL (75-99)
[2017-01-22] MEDS: FAMOTIDINE 20 MG TAB PO SCH (20:59)
[2017-01-23 07:54] LABS: Glucose,Whole Blood 119 mg/dL (75-99)
[2017-01-23 07:59] VITALS: BP 108/59; PULSE 74; RESP 16; TEMP 97.1
[2017-01-23] MEDS: INSULIN LISPRO (humaLOG) 300 UNIT/3 ML VIAL SQ SCH ×2 (08:32→12:55)
[2017-01-23] MEDS: FAMOTIDINE 20 MG TAB PO SCH (08:33)
[2017-01-23 12:44] LABS: Glucose,Whole Blood 130 mg/dL (75-99)
--- NOTE | 2017-01-23 17:45 | P.DS ---
Providers Date of admission: 01/20/17 11:07 Attending physician: George De Anda Primary care physician: George De Anda Hospital Course: 26year-old female is seen in cross coverage for Dr. De Anda. Patient apparently had some change in vision on the left side. Patient has had significant workup in regards to multiple sclerosis in the past apparently the diagnosis is unclear as patient was noted to have some demyelinating lesions however CSF did not note any leukocytic pleocytosis. Patient apparently was even started on Glatiramer acetate and did not tolerate it. States patient was started on steroids during this admission states her vision is improved denies having any further episodes of weakness or numbness. 01/23/17 viison is significantly improved according to her . Objective - Exam - Exam Physical exam Gen. appearance oriented 3 in no distress Neck is supple no JVD Lungs no rhonchi, wheezing, crackles good air movement Heart S1-S2 heard regular rate and rhythm no murmurs appreciated Abdomen is soft nontender no organomegaly bowel sounds are intact Neurologically cranial nerves II-12 grossly intact no focal motor or sensory deficits notedExtra ocular movements intact. - Labs CBC & Chem 7: Assessment and Plan Plan: #1 optic neuritis likely secondary to Demyelinating process likely MS, improved with steroid burst. plan Patient is to complete her steroid burst and Dr. Vasquez has recommended patient follow-up with [facility] to undergo extensive workup in regards to ruling out or ruling and other demyelinating illnesses as well. steroid taper follow up with Dr Vasquez Pt may need Bone density screening, has been on steroids majority of the time for the last 2 yrs GI prophylaxis. Patient Condition at Discharge: Stable Plan - Discharge Summary New Discharge Prescriptions: Famotidine [Pepcid] 20 mg PO BID #60 tab Nizatidine [Axid] 150 mg PO BID #60 capsule predniSONE 10 mg PO DAILY #200 tab Discharge Medication List Acetaminophen Tab [Tylenol Tab] 650 mg PO Q4H PRN 12/28/16 [History] Blisovi Fe 12/04 1 tab PO DAILY 12/28/16 [History] Famotidine [Pepcid] 20 mg PO BID #60 tab 01/23/17 [Rx] Nizatidine [Axid] 150 mg PO BID 01/23/17 [History] Nizatidine [Axid] 150 mg PO BID #60 capsule 01/23/17 [Rx] predniSONE 10 mg PO DIRECTED 01/23/17 [History] predniSONE 10 mg PO DAILY #200 tab 01/23/17 [Rx] Follow up Appointment(s)/Referral(s): Goerge De Anda MD [Primary Care Provider] - 1-2 days Roberto Vasquez MD [STAFF PHYSICIAN] - 1 Week Anabela Sheridan MD [STAFF PHYSICIAN] - 1 Week Discharge Disposition: HOME SELF-CARE
== END 2017-01-23 14:37 | disposition home or self-care (01) | DRG 60 ==
LOC: EC 08:10 → 4MS4W 11:07
PROVIDERS: ADMIT Family Medicine; ATTEND Family Medicine
DX: G36.0 Neuromyelitis optica [Devic] (principal); H16.9 Unspecified keratitis; G35 Multiple sclerosis; J45.909 Unspecified asthma, uncomplicated
CPT/HCPCS: 36415; 70450; 71020; 80053; 81003; 81025; 82553; 83036; 84484; 85025; 85652; 86140; 93005; 96365; 99285

== ENCOUNTER 2017-02-14 15:08 | Inpatient (IN) | payer OTHER ==
--- NOTE | 2017-02-14 16:07 | ED ---
General Adult HPI <Niels Fitzpatrick - Last Filed: 02/14/17 18:12> - General Source: patient Mode of arrival: ambulatory Limitations: no limitations <Russell Madera - Last Filed: 02/14/17 18:17> - General Chief complaint: Extremity Injury, Lower Stated complaint: sudden heaviness of lower extremities Time Seen by Provider: 02/14/17 15:40 - History of Present Illness Initial comments: 26-year-old female patient presents emergency department today for complaints of bilateral lower extremity weakness. Patient states that this started 3 days ago, she states it started with a numb feeling in her knees. She states it was sudden onset while she was walking to the grocery store. She states that her legs became wobbly and she felt like she was going to fall. She did have an episode about a week ago where he felt that her ankles would not support her and she felt weak. Patient states that when she walks her feet turn inward making it difficult for her to ambulate. Patient is able to feel me touching her knees, but she states it feels numb to her. Denies any loss of bowel or bladder control. Denies any low back pain. Denies any heavy lifting or new workout regimen. Patient is being evaluated for possible multiple sclerosis. She has had optic neuritis multiple times in the past. Denies any chest pain, shortness of breath, fever, chills, rash, nausea, vomiting, abdominal pain, hematuria, dysuria, urinary frequency, urinary urgency. Denies any constipation or diarrhea. (Russell Madera) - Related Data Home Medications Medication Instructions Recorded Confirmed Blisovi Fe 12/04 1 tab PO DAILY 12/28/16 02/14/17 predniSONE See Taper PO DAILY 01/23/17 02/14/17 Famotidine [Pepcid] 20 mg PO HS 02/14/17 02/14/17 Allergies Allergy/AdvReac Type Severity Reaction Status Date / Time gluten Allergy Unknown Verified 02/14/17 15:43 dairy Allergy Unknown Uncoded 02/14/17 15:30 Review of Systems ROS Other: All systems not noted in ROS Statement are negative. <Niels Fitzpatrick - Last Filed: 02/14/17 18:12> ROS Other: All systems not noted in ROS Statement are negative. <Russell Madera - Last Filed: 02/14/17 18:17> ROS Statement: Those systems with pertinent positive or pertinent negative responses have been documented in the HPI. Past Medical History Past Medical History: Eye Disorder, Neurologic Disorder, Syncope Additional Past Medical History / Comment(s): Optic neuritis in past (has caused visual loss bilateral eyes), POTS-hyponatremia and has had past syncopal episode, bouts of weakness and shooting pain down extremities at times-being worked up for MS, MRI showed lesions/LP was negative per pt, possible asthma. 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 Past Anesthesia/Blood Transfusion Reactions: No Reported Reaction Past Psychological History: No Psychological Hx Reported Additional Psychological History / Comment(s): Pt resides with her fiancee. She uses a cane and has in the past used a walker during her "flare ups". She drives. Smoking Status: Never smoker Past Alcohol Use History: Rare Past Drug Use History: None Reported - Past Family History Sister(s) History Unknown: Yes Family Medical History: No Reported History Additional Family Medical History / Comment(s): Pt was adopted. Father History Unknown: Yes Additional Family Medical History / Comment(s): Pt was adopted. <Russell Madera M - Last Filed: 02/14/17 18:17> General Exam Limitations: no limitations General appearance: alert, in no apparent distress Head exam: Present: atraumatic, normocephalic, normal inspection Eye exam: Present: normal appearance, PERRL, EOMI. Absent: scleral icterus, conjunctival injection, periorbital swelling ENT exam: Present: normal exam Neck exam: Present: normal inspection, full ROM. Absent: tenderness, meningismus, lymphadenopathy Respiratory exam: Present: normal lung sounds bilaterally. Absent: respiratory distress, wheezes, rales, rhonchi, stridor Cardiovascular Exam: Present: regular rate, normal rhythm, normal heart sounds. Absent: systolic murmur, diastolic murmur, rubs, gallop, clicks GI/Abdominal exam: Present: soft, normal bowel sounds. Absent: distended, tenderness, guarding, rebound, rigid Extremities exam: Present: normal inspection, full ROM, normal capillary refill , other (Strength left lower extremity 4/5. Strength right lower extremity 3/5. ). Absent: tenderness, pedal edema, joint swelling, calf tenderness Back exam: Present: normal inspection. Absent: tenderness, CVA tenderness (R), CVA tenderness (L) Neurological exam: Present: alert, oriented X3, CN II-XII intact, abnormal gait Psychiatric exam: Present: normal affect, normal mood Skin exam: Present: warm, dry, intact, normal color. Absent: rash <Russell Madera - Last Filed: 02/14/17 18:17> Medical Decision Making - Lab Data Result diagrams: 02/14/17 16:41 02/14/17 16:41 <Niels Fitzpatrick - Last Filed: 02/14/17 18:12> - Lab Data Result diagrams: 02/14/17 16:41 02/14/17 16:41 <Russell Madera - Last Filed: 02/14/17 18:17> - Medical Decision Making Social female patient presents today for complaints of disturbed gait and leg weakness. Discussed case with Dr. Fofana and Dr. Vasquez who agreed to admission. Dr. Vasquez does not advise IV steroids at this time. (Russell Madera) - Lab Data Lab Results 02/14/17 02/14/17 Range/Units 16:41 16:41 WBC 12.6 H (3.8-10.6) k/uL RBC 4.40 (3.80-5.40) m/uL Hgb 15.0 (11.4-16.0) gm/dL Hct 45.2 (34.0-46.0) % MCV 102.8 H D (80.0-100.0) fL MCH 34.2 (25.0-35.0) pg MCHC 33.2 (31.0-37.0) g/dL RDW 13.9 (11.5-15.5) % Plt Count 268 (150-450) k/uL Neutrophils % 88 % Lymphocytes % 5 % Monocytes % 5 % Eosinophils % 1 % Basophils % 0 % Neutrophils # 11.1 H (1.3-7.7) k/uL Lymphocytes # 0.7 L (1.0-4.8) k/uL Monocytes # 0.7 (0-1.0) k/uL Eosinophils # 0.1 (0-0.7) k/uL Basophils # 0.0 (0-0.2) k/uL Macrocytosis Slight Sodium 141 (137-145) mmol/L Potassium 4.1 (3.5-5.1) mmol/L Chloride 104 (98-107) mmol/L Carbon Dioxide 27 (22-30) mmol/L Anion Gap 10 mmol/L BUN 18 H (7-17) mg/dL Creatinine 0.59 (0.52-1.04) mg/dL Est GFR (MDRD) Af Amer >60 (>60 ml/min/1.73 sqM) Est GFR (MDRD) Non-Af >60 (>60 ml/min/1.73 sqM) Glucose 100 H (74-99) mg/dL Calcium 9.4 (8.4-10.2) mg/dL Magnesium 2.3 (1.6-2.3) mg/dL Total Bilirubin 0.6 (0.2-1.3) mg/dL AST 19 (14-36) U/L ALT 39 (9-52) U/L Alkaline Phosphatase 55 (38-126) U/L Total Protein 7.0 (6.3-8.2) g/dL Albumin 4.1 (3.5-5.0) g/dL Disposition <Niels Fitzpatrick - Last Filed: 02/14/17 18:12> Decision to Admit Reason: Admit from EC Decision Date: 02/14/17 Decision Time: 18:17 <Russell Madera - Last Filed: 02/14/17 18:17> Clinical Impression: Abnormal gait, Leg weakness, bilateral Disposition: ADMITTED IP TO THIS HOSP
[2017-02-14 16:48] LABS: CH 34.4; CHCM 33.6; HDW 2.23; Luc # (Auto) 0.11; Luc % (Auto) 1; Macrocytosis Slight
[2017-02-14 16:57] LABS: ALT 39 U/L (9-52); AST 19 U/L (14-36); Alkaline Phosphatase 55 U/L (38-126); Anion Gap 10 mmol/L; Blood Urea Nitrogen 18 mg/dL (7-17); Calcium 9.4 mg/dL (8.4-10.2); Carbon Dioxide 27 mmol/L (22-30); Chloride 104 mmol/L (98-107); Glucose 100 mg/dL (74-99); Magnesium 2.3 mg/dL (1.6-2.3); Non-African American GFR(MDRD) >60 (>60 ml/min/1.73 sqM); Potassium 4.1 mmol/L (3.5-5.1); Sodium 141 mmol/L (137-145); Total Bilirubin 0.6 mg/dL (0.2-1.3)
[2017-02-14 17:05] LABS: Basophils % (A) 0 %; Eosinophils # (A) 0.1 k/uL (0-0.7); Eosinophils % (A) 1 %; HCT 45.2 % (34.0-46.0); Lymphocytes # (A) 0.7 k/uL (1.0-4.8); Lymphocytes % (A) 5 %; MCH 34.2 pg (25.0-35.0); MCHC 33.2 g/dL (31.0-37.0); Mean Platelet Volume 7.1; Monocytes # (A) 0.7 k/uL (0-1.0); Monocytes % (A) 5 %; Neutrophils # (A) 11.1 k/uL (1.3-7.7); Neutrophils % (A) 88 %; RDW 13.9 % (11.5-15.5); WBC 12.6 k/uL (3.8-10.6); WBC (Perox) 12.24
[2017-02-14 17:07] LABS: MCV 102.8 fL (80.0-100.0)
[2017-02-14] MEDS ORDERED: ACETAMINOPHEN TAB 325 MG TAB PO PRN (18:12)
[2017-02-14] MEDS ORDERED: NALOXONE 0.4 MG/ML 1 ML VIAL IV PRN (18:12)
[2017-02-14] MEDS ORDERED: predniSONE 10 MG TAB PO SCH (21:00)
[2017-02-14] MEDS: FAMOTIDINE 20 MG TAB PO SCH (21:13)
[2017-02-14 21:15] LABS: Glucose,Whole Blood 96 mg/dL (75-99)
[2017-02-14 23:03] VITALS: BMI 28.8
[2017-02-15 06:43] LABS: Glucose,Whole Blood 102 mg/dL (75-99)
[2017-02-15] MEDS ORDERED: BLISOVI FE PO SCH (09:00)
--- NOTE | 2017-02-15 20:34 | P.CNNES ---
History of Present Illness Consult date: 02/15/17 Reason for Consult: Patient with leg weakness and complex history of probable MS. History of Present Illness: This patient is a 26-year-old right-handed white female who was brought into the emergency room today for evaluation of lower extremity leg numbness and weakness. Patient was recently admitted to hospital about 3 weeks ago for treatment of acute optic neuritis involving her left eye. She underwent high- dose steroid therapy and was seen by ophthalmology. Patient has an extensive past medical history that is quite complicated. She has been followed for several years in the MS clinic at [facility]. She has been seen by several neurologists. Last summer she was evaluated for multiple sclerosis. Her exact diagnosis is still unknown. Apparently her spinal fluid analysis was negative for MS. She is scheduled to have follow-up with her neurologist at the [facility] and [facility] next week. Apparently she was shopping this last Wednesday and noted weakness and heaviness in both of her legs. She states this was most notable when she was ambulating and walking. For this reason she was brought into the emergency room with symptoms of ongoing difficulty with the use of her legs including loss of balance. On examination however she seems to have good strength in both lower extremities. She does have some scattered sensory changes in both lower extremities. She has undergone extensive neurological workup at the [facility] and we are recommending that she follow up with her specialists of their Dr. Fox. We have recommended to Dr. Rainey not that this patient should be transferred to the [facility] neurology unit for further management by her primary neurologist. She has undergone extensive workup thus far including MRI imaging of the brain and cervical spine and spinal fluid analysis. According to the patient she has not been diagnosed with multiple sclerosis. Given her recent episode of optic neuritis and sensory changes in the lower extremities she may also have a form of Devic syndrome. We have recommended to the patient that she should be transferred to the [facility] for ongoing neurological evaluation by her primary neurologist. Patient is agreeable and we will work with the transfer 14 to arrange for her transfers in his bed is available. Her overall prognosis at this time remains guarded. Neurology is now consulted for further evaluation and recommendation. Review of Systems Constitutional: Denies chills, Denies fever Eyes: denies blurred vision, denies pain Ears, nose, mouth and throat: Denies headache, Denies sore throat Cardiovascular: Denies chest pain, Denies shortness of breath Respiratory: Denies cough Gastrointestinal: Denies abdominal pain, Denies diarrhea, Denies nausea, Denies vomiting Genitourinary: Denies dysuria, Denies hematuria Musculoskeletal: Denies myalgias Integumentary: Denies pruritus, Denies rash Neurological: Reports paresthesias, Reports tingling, Denies numbness, Denies weakness Psychiatric: Denies anxiety, Denies depression Endocrine: Denies fatigue, Denies weight change Past Medical History Past Medical History: Eye Disorder, Neurologic Disorder, Syncope Additional Past Medical History / Comment(s): Optic neuritis in past (has caused visual loss bilateral eyes), POTS-hyponatremia and has had past syncopal episode, bouts of weakness and shooting pain down extremities at times-being worked up for MS, MRI showed lesions/LP was negative per pt, possible asthma. 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 Past Anesthesia/Blood Transfusion Reactions: No Reported Reaction Past Psychological History: No Psychological Hx Reported Additional Psychological History / Comment(s): Pt resides with her cristinee. She uses a cane and has in the past used a walker during her "flare ups". She drives. Smoking Status: Never smoker Past Alcohol Use History: Rare Past Drug Use History: None Reported - Past Family History Sister(s) History Unknown: Yes Family Medical History: No Reported History Additional Family Medical History / Comment(s): Pt was adopted. Father History Unknown: Yes Additional Family Medical History / Comment(s): Pt was adopted. Medications and Allergies Home Medications Medication Instructions Recorded Confirmed Type Blisovi Fe 12/04 1 tab PO DAILY 12/28/16 02/14/17 History predniSONE See Taper PO DAILY 01/23/17 02/14/17 History Famotidine [Pepcid] 20 mg PO HS 02/14/17 02/14/17 History Allergies Allergy/AdvReac Type Severity Reaction Status Date / Time gluten Allergy Diarrhea Verified 02/14/17 23:48 dairy Allergy Diarrhea Uncoded 02/14/17 23:48 Physical Examination - Vital Signs Vital Signs: Vital Signs Temp Pulse Resp BP Pulse Ox 02/15/17 17:15 97.5 F L 98 16 118/72 96 02/15/17 11:37 96.8 F L 92 16 124/75 99 02/15/17 06:36 97.6 F 93 16 122/76 97 02/15/17 00:00 16 02/14/17 23:00 97.8 F 86 16 118/74 97 Intake and Output 02/15/17 02/15/17 02/15/17 06:59 14:59 22:59 Intake Total 650 Balance 650 Intake: Oral 650 Other: Voiding Method Toilet # Voids 2 - Constitutional General appearance: average body habitus, cooperative - EENT EENT: PERRL, mucous membranes moist - Respiratory Respiratory: lungs clear, normal breath sounds - Cardiovascular Cardiovascular: regular rate, normal S1, normal S2 Extremities: no peripheral edema bilaterally - Gastrointestinal Gastrointestinal: normoactive bowel sounds - Integumentary Integumentary: normal - Neurologic Cranial nerve examination: PERRL, EOMI, VFF, V1/V2/V3 grossly intact, face symmetric, intact shoulder shrug, intact gag reflex, intact corneal reflex, normal palatal elevation Speech examination: intact Sensorimotor examination: intact Detailed motor examination: grossly full strength in all extremities Motor examination - right side: 5/5: biceps, triceps, wrist flexion, wrist extension, assistant scientist, hip flexors, knee extensors, dorsiflexion, toe extension (EHL) , plantarflexion Motor examination - left side: 5/5: biceps, triceps, wrist flexion, wrist extension, assistant scientist, hip flexors, knee extensors, dorsiflexion, toe extension (EHL) , plantarflexion Detailed sensory examination: intact Reflex and gait examination: intact Reflexes: 1+: ankle, bicep, knee, tricep - Musculoskeletal Musculoskeletal: no pain - Psychiatric Psychiatric: mood/affect appropriate, cooperative Results - Laboratory Findings CBC and BMP: 02/14/17 16:41 02/14/17 16:41 Abnormal Lab Findings: Abnormal Labs 02/15/17 06:41 POC Glucose (mg/dL) 102 H Assessment and Plan (1) Leg weakness, bilateral Status: Acute Code(s): R29.898 - OTH SYMPTOMS AND SIGNS INVOLVING THE MUSCULOSKELETAL SYSTEM (2) Abnormal gait Status: Acute Code(s): R26.9 - UNSPECIFIED ABNORMALITIES OF GAIT AND MOBILITY (3) Ischemic optic neuritis of left eye Status: Acute Code(s): H47.012 - ISCHEMIC OPTIC NEUROPATHY, LEFT EYE (4) Multiple sclerosis Status: Acute Code(s): G35 - MULTIPLE SCLEROSIS Plan: This patient is a 26-year-old female who was admitted to the hospital today with unusual symptom of leg numbness and weakness. Patient has an extensive and complicated past medical history including questionable diagnosis of multiple sclerosis. She has been evaluated for several years at the [facility] neurology unit. She was last seen there last summer. She is undergone neuroimaging studies as well as spinal fluid analysis all of which have been negative for MS diagnosis. 3 weeks ago the patient was diagnosed with left optic neuritis which was treated with high-dose IV Solu-Medrol for 3 days. She is noted significant improvement with her vision since that time. Apparently on Wednesday she was at the store walking when she noted weakness and onset steady gait. She was advised to come to the ER by her primary care physician. Patient was admitted today for further assessment. She seems to have normal strength in both lower extremities. Given her history of recent episode of optic neuritis and new symptoms of leg paresthesias and weakness raises the question of possible Devic's syndrome. We have recommended the patient should be transferred to her primary neurologist at the [facility] Dr. Fox for further evaluation and treatment. She has undergone extensive workup with her neurologist there. Transferred team has been contacted today at the [facility] and we're waiting further arrangements to be made for this patient. In the meantime we will continue close monitoring of her condition. She may require further neuro imaging studies and repeat lumbar puncture. She refuses to have LP done here due to recent bad experience. We will continue close neurological follow-up with the patient. Overall prognosis at this time remains very guarded. Time with Patient: Greater than 30
[2017-02-15] MEDS: FAMOTIDINE 20 MG TAB PO SCH (21:58)
--- NOTE | 2017-02-15 23:48 | HP ---
H&P and DISCHARGE SUMMARY DATE OF ADMISSION: [id number] very pleasant female came into the emergency department with bilateral lower extremity weakness. Although patient has ( ) the patient's symptoms are a little bit non-specific with some numbness while she was walking to the grocery store, and she felt a little bit wobbly and was going to fall. On exam today, patient has good reflexes in bilateral is walking yet, but I examined today. Knee jerks are essentially within normal limits. Patient has good strength 5/5 in bilateral lower limbs. Patient does not have any cerebellar signs. Patient's Romberg sign is normal with eyes closed and eyes open. Patient apparently has some pain in front of the eye and was diagnosed with optic neuritis in the past, although it is not clear-cut whether patient has optic neuritis or not. Patient was evaluated in the past here in the hospital. At that time MRI was done which did not show evidence of multiple sclerosis at that time. Patient had an LP at that time which did not show any pleocytosis during her last hospitalization. Patient was given a weaning dose of steroids; still on steroids with mildly elevated WBC count. Patient had evaluation in neurology clinic at [facility]. At that time patient was put on ( ) which she could not tolerate well. Patient never had any clear-cut diagnosis of multiple sclerosis, because of which patient was asked to follow up with [facility] or [facility] neurology clinics, and today patient is not on steroids. Neurology was consulted. Neurology is recommending transfer. We are trying to transfer the patient to [facility], where she had a neurological evaluation. Patient denied any fever or chills. Patient denied any headache, photophobia. Patient denied any other focal weakness except for those mentioned above. REVIEW OF SYSTEMS: CONSTITUTIONAL: No fever, no malaise, no fatigue. HEENT: No recent visual problems or hearing problems. Denied any sore throat. CARDIOVASCULAR: No chest pain, orthopnea, PND, no palpitations, no syncope. PULMONARY: No shortness of breath, no cough, no hemoptysis. GASTROINTESTINAL: No diarrhea, no nausea, no vomiting, no abdominal pain. Normoactive bowel sounds. NEUROLOGICAL: As described in HPI. HEMATOLOGICAL: Denies any bleeding or petechiae. GENITOURINARY: Denies any burning micturition, frequency, or urgency. MUSCULOSKELETAL/RHEUMATOLOGICAL: Denies any joint pain, swelling, or any muscle pain. ENDOCRINE: Denies any polyuria or polydipsia. The rest of the 14 point review of systems is negative. Home medications include: 1. ( ) 2. Prednisone. 3. Pepcid. ALLERGIES: GLUTEN and DAIRY. PAST MEDICAL HISTORY: As mentioned above. Apart from that, patient had a syncopal episode in the past and patient had an adenoidectomy. 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 SOCIAL HISTORY: Denied any smoking, alcohol abuse or any drug abuse. FAMILY HISTORY: Patient was adopted; family history is unknown because of that reason. PHYSICAL EXAMINATION: VITAL SIGNS: Temperature 97.4, pulse of 98, respiratory rate of 16. Blood pressure is 180/72. Saturating at 96% on room air. GENERAL: The patient is alert and oriented x3, not in any acute distress. Well developed, well nourished. HEENT: Pupils are round and equally reacting to light. EOMI. No scleral icterus. No conjunctival pallor. Normocephalic, atraumatic. No pharyngeal erythema. No thyromegaly. CARDIOVASCULAR: S1 and S2 present. No murmurs, rubs, or gallops. PULMONARY: Chest is clear to auscultation, no wheezing or crackles. ABDOMEN: Soft, nontender, nondistended, normoactive bowel sounds. No palpable organomegaly. MUSCULOSKELETAL: No joint swelling or deformity. EXTREMITIES: No cyanosis, clubbing, or pedal edema. NEUROLOGICAL: As described in the HPI itself. SKIN: No rashes. CBC and basic metabolic profile are essentially within normal limits except for elevated WBC count secondary to systemic steroids. No CT of the head was done. ASSESSMENT AND PLAN: 1. Non-specific symptoms of numbness in bilateral lower limbs. No clear history of peripheral neuropathy symptoms, either. Unsure of the exact etiology of patient's symptoms. Patient was evaluated ( ) for multiple sclerosis in the past. PLAN: As mentioned in interval history, planning on transferring her to higher level facility. 2. Leukocytosis without any signs or symptoms of infection ( ) systemic steroids. 3. History of ASD, status post closure. This dictation is both H&P and discharge summary.
[2017-02-16 07:03] LABS: CH 34.4; CHCM 33.6; HCT 44.5 % (34.0-46.0); HDW 2.26; HGB 14.7 gm/dL (11.4-16.0); MCH 33.9 pg (25.0-35.0); MCV 102.7 fL (80.0-100.0); Macrocytosis Slight; Mean Platelet Volume 6.9; RBC 4.33 m/uL (3.80-5.40); WBC 16.1 k/uL (3.8-10.6)
[2017-02-16] MEDS ORDERED: predniSONE 10 MG TAB PO SCH (09:00)
[2017-02-16 09:01] VITALS: RESP 18
[2017-02-16 13:36] LABS: Anion Gap 9 mmol/L; Blood Urea Nitrogen 16 mg/dL (7-17); Calcium 9.3 mg/dL (8.4-10.2); Carbon Dioxide 25 mmol/L (22-30); Chloride 103 mmol/L (98-107); Glucose 86 mg/dL (74-99); Non-African American GFR(MDRD) >60 (>60 ml/min/1.73 sqM); Sodium 137 mmol/L (137-145)
[2017-02-16 14:22] LABS: Vitamin B12 486 pg/mL (239-931)
[2017-02-16 14:25] LABS: Potassium 4.9 mmol/L (3.5-5.1)
[2017-02-16 14:50] VITALS: BP 125/75; PULSE 99; TEMP 98.3
--- NOTE | 2017-02-16 16:47 | P.PN ---
Progress Note - Text Unable to process transferred to [facility]. Patient is to be discharge and then follow the clinic at [facility].. Please see history and physical per Dr. De La Fuente for discharge summary
== END 2017-02-16 16:00 | disposition home or self-care (01) | DRG 948 ==
LOC: EC 15:08 → 6PED 18:17
PROVIDERS: ADMIT Family Medicine; ATTEND Family Medicine
DX: R53.1 Weakness (principal); D72.829 Elevated white blood cell count, unspecified; H47.012 Ischemic optic neuropathy, left eye; R29.898 Other symptoms and signs involving the musculoskeletal system; Z87.74 Personal history of (corrected) congenital malformations of heart and circulatory system; Z79.52 Long term (current) use of systemic steroids; Z79.899 Other long term (current) drug therapy; Z91.02 Food additives allergy status; Z91.011 Allergy to milk products; R26.9 Unspecified abnormalities of gait and mobility; J45.909 Unspecified asthma, uncomplicated; T38.0X5A Adverse effect of glucocorticoids and synthetic analogues, initial encounter
CPT/HCPCS: 36415; 80048; 80053; 82607; 83735; 85025; 85027; 99285

== ENCOUNTER → 2017-03-05 | Outpatient (CLI) | payer OTHER ==
--- NOTE | 2017-03-06 08:03 | US ---
EXAMINATION TYPE: US thyroid st tissue head/neck DATE OF EXAM: 03/05/2017 4:36 PM COMPARISON: US CLINICAL HISTORY: E04.9 Nontoxic goiter. Pt states Dr felt thyroid enlargement GLAND SIZE: Right Lobe: 4.7 x 1.9 x 2.1 cm Overall Parenchyma: homogenous Left Lobe: 4.3 x 1.5 x 1.4 cm Overall Parenchyma: homogeneous Isthmus Thickness: 0.3 cm NODULES RIGHT: # of nodules measured on right: 0 LEFT: # of nodules measured on left: 0 ISTHMUS: # of nodules measured in the isthmus: 0 Bilateral neck scanned, no evidence of lymphadenopathy, thyroid appeared wnl Signal through the thyroid appears homogenous and symmetrical. Isthmus is unremarkable. IMPRESSION: Normal thyroid
== END | disposition home or self-care (01) ==
LOC: RADUSWWP 16:18
PROVIDERS: ATTEND Family Medicine
DX: E04.9 Nontoxic goiter, unspecified (principal)
CPT/HCPCS: 76536

== ENCOUNTER → 2017-04-28 | Outpatient (CLI) | payer OTHER ==
[2017-04-28 11:48] LABS: Rheumatoid Factor, Qnt <9 IU/mL (<12)
[2017-04-28 11:49] LABS: C Reactive Protein <5.0 mg/L (<10.0)
[2017-04-28 12:52] LABS: Hepatitis C Virus IgG Ab Negative (Negative); Hepatitis C Virus IgG Index 0.03
[2017-04-28 16:57] LABS: ANA w/Reflex to Titer NEGATIVE (NEGATIVE)
[2017-04-28 17:15] LABS: Treponemal Ab Non-Reactive (Non-Reactive)
== END | disposition home or self-care (01) ==
LOC: LABWHC1 10:28
PROVIDERS: ATTEND Internal Medicine Infectious Disease
DX: A69.20 Lyme disease, unspecified (principal)
CPT/HCPCS: 36415; 85652; 86038; 86140; 86431; 86780; 86803

== ENCOUNTER 2017-08-01 19:04 | Emergency (ER) | payer OTHER ==
--- NOTE | 2017-08-01 20:12 | ED ---
General Adult HPI - General Source: patient Mode of arrival: ambulatory Limitations: no limitations <Ileana Johnson - Last Filed: 08/01/17 20:11> - General Source: RN notes reviewed, old records reviewed <Niels Fitzpatrick - Last Filed: 08/01/17 21:07> - General Chief complaint: Abdominal Pain Stated complaint: pelvic pain - History of Present Illness Initial comments: Chief complaint history of present illness is a 26-year-old female with a complaint of discomfort in the bladder area. Patient reports does not hurt to urinate but hurts to push to urinate. Also mild discomfort which does have a bowel movement. No blood no frequency urgency or dysuria. (Niels Fitzpatrick) - Related Data Previous Rx's Medication Instructions Recorded Phenazopyridine [Pyridium] 200 mg PO TID #6 tablet 08/01/17 Allergies Allergy/AdvReac Type Severity Reaction Status Date / Time gluten AdvReac Nausea & Verified 08/01/17 20:27 Vomiting Milk Containing Products AdvReac Abdominal Verified 08/01/17 20:27 [Dairy] Pain Review of Systems ROS Other: All systems not noted in ROS Statement are negative. <Ileana Johnson - Last Filed: 08/01/17 20:11> ROS Other: All systems not noted in ROS Statement are negative. <Niels Fitzpatrick - Last Filed: 08/01/17 21:07> ROS Statement: Those systems with pertinent positive or pertinent negative responses have been documented in the HPI. Review of systems patient's currently being worked up for possible mixed connective tissue disorder. Her neurologist has ruled out MS. Is considering and testing for mixed connective tissue disorders. All systems reviewed. 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 One syncopal episode at one time optic neuritis at one time. Surgeries adenoidectomy. 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 Family history patient is adopted and does not know her history. ALLERGIES to gluten. (Niels Fitzpatrick) Past Medical History Past Medical History: Eye Disorder, Neurologic Disorder, Syncope Additional Past Medical History / Comment(s): Optic neuritis in past (has caused visual loss bilateral eyes), POTS-hyponatremia and has had past syncopal episode, bouts of weakness and shooting pain down extremities at times-being worked up for MS, MRI showed lesions/LP was negative per pt, possible asthma. 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 Past Anesthesia/Blood Transfusion Reactions: No Reported Reaction Past Psychological History: No Psychological Hx Reported Smoking Status: Never smoker Past Alcohol Use History: Rare Past Drug Use History: None Reported - Past Family History Sister(s) History Unknown: Yes Family Medical History: No Reported History Additional Family Medical History / Comment(s): Pt was adopted. Father History Unknown: Yes Additional Family Medical History / Comment(s): Pt was adopted. <Ileana Johnson - Last Filed: 08/01/17 20:11> General Exam Limitations: no limitations External exam: Present: normal external exam Speculum exam: Present: erythema (Mild erythema to the cervix), vaginal bleeding (Mild, dark brown.), other (Patient states that speculum exam is much more painful than usual. ). Absent: normal speculum exam, vaginal discharge, cervical discharge By manual exam: Present: normal by manual exam. Absent: cervical motion tenderness, adnexal tenderness, adnexal mass, uterine tenderness <Ileana Johnson - Last Filed: 08/01/17 20:11> <Niels Fitzpatrick - Last Filed: 08/01/17 21:07> - General Exam Comments Initial Comments: General: The patient is awake and alert, in no distress, and does not appear acutely ill. As scribe surfaces discomfort when she tries to push the urine output is uncomfortable doesn't hurt for the urine to come out Eye: Pupils are equal, round and reactive to light, extra-ocular movements are intact ; there is normal conjunctiva bilaterally. No signs of icterus. Ears, nose, mouth and throat: No complaint of ear nose or throat pain. Neck: Neck is supple, no evidence of discomfort. No complaint of chest pain palpitations or shortness of breath. Gastrointestinal: Soft, non-distended, non-tender abdomen without masses or organomegaly noted. she has difficulty expressing and delineating exactly where she has discomfort. Nurse practitionerIleana the vaginal examination at the patient's request have female to the exam. Rate her report. Nothing to explain the patient's symptoms. Back: There is no tenderness to palpation in the midline. There is no obvious deformity. No rashes noted. Musculoskeletal: Normal ROM, no tenderness, There is no pedal edema. There is no calf tenderness or swelling. Sensation intact. Pulses equal bilaterally 2+. Neurological: No noticeable neuro deficits none complained of. Skin: No skin rashes (Niels Fitzpatrick) Medical Decision Making <Ileana Johnson - Last Filed: 08/01/17 20:11> <Niels Fitzpatrick - Last Filed: 08/01/17 21:07> - Medical Decision Making Medical decision-making this time patient be put on Pyridium decrease a spasm of the bladder. She has no evidence of any urinary tract infection or vaginal infection right internal examination by nurse practitioner. The patient's urine was also negative for being . The patient's currently on her menstrual cycle. Advised to follow-up with family physician, as well as her oven equipment repairer or fast food worker whenever she is following up with this time (Niels Fitzpatrick) - Lab Data Lab Results 08/01/17 08/01/17 Range/Units 20:26 20:26 Urine Color Yellow Urine Appearance Clear (Clear) Urine pH 5.5 (5.0-8.0) Ur Specific [place] 1.028 (1.001-1.035) Urine Protein Trace H (Negative) Urine Glucose (UA) Negative (Negative) Urine Ketones Trace H (Negative) Urine Blood Negative (Negative) Urine Nitrite Negative (Negative) Urine Bilirubin Negative (Negative) Urine Urobilinogen 2.0 (<2.0) mg/dL Ur Leukocyte Esterase Negative (Negative) Urine HCG, Qual Not Detected (Not Detectd) Disposition <Ileana Johnson - Last Filed: 08/01/17 20:11> Time of Disposition: 21:07 <Niels Fitzpatrick - Last Filed: 08/01/17 21:07> Clinical Impression: Bladder spasm Disposition: HOME SELF-CARE Condition: Fair Additional Instructions: Take Pyridium which will turn the urine orange. Increase fluid intake. Follow- up with family physician and fast food worker. Prescriptions: Phenazopyridine [Pyridium] 200 mg PO TID #6 tablet Referrals: George De Anda MD [Primary Care Provider] - 1-2 days
[2017-08-01 20:35] LABS: Appearance,Urine Clear (Clear); Bilirubin,Urine Negative (Negative); Glucose,Urine (UA) Negative (Negative); Ketones,Urine Trace (Negative); Leukocyte Esterase,Urine Negative (Negative); Nitrite,Urine Negative (Negative); PH, Urine 5.5 (5.0-8.0); Protein,Urine Trace (Negative); Specific Gravity,Urine 1.028 (1.001-1.035); UA Billing (MACRO vs. MICRO) CHEM
[2017-08-01] MEDS ORDERED: PHENAZOPYRIDINE 200 MG TAB PO STA (21:04)
[2017-08-01 21:16] VITALS: BP 109/71; PULSE 77; RESP 19; TEMP 98.7
== END 2017-08-01 21:30 | disposition home or self-care (01) ==
LOC: EC 19:04
DX: N32.89 Other specified disorders of bladder (principal); Z91.011 Allergy to milk products; Z91.018 Allergy to other foods
CPT/HCPCS: 81003; 81025; 87086; 99284

== ENCOUNTER 2017-11-04 16:38 | Emergency (ER) | payer OTHER ==
[2017-11-04 16:51] VITALS: BP 134/79; PULSE 95; RESP 16; TEMP 97.9
--- NOTE | 2017-11-04 18:50 | ED ---
Neck Injury/Pain HPI - General Chief Complaint: Neck Pain/Injury Stated Complaint: Left Side of Neck Pain Time Seen by Provider: 11/04/17 17:23 Mode of arrival: ambulatory Limitations: no limitations - History of Present Illness Initial Comments: 26-year-old female with past medical history of an open-heart vascular repair in 1991 presented for evaluation of neck pain. She states that she has been feeling a "pulling"sensation to the left side of her neck for the last 2 days. She has a history of previous strained muscles due to sports exercises in physical activities and states this does not feel similar to those occurrences. She called her primary care physician and her hvac design engineer today and she was advised to come to the ED for further treatment and evaluation. She denies any associated headache, lightheadedness/dizziness, ataxia, vision changes, dysphasia, weakness, numbness, paresthesias, chest pain, shortness of breath. Is no preceding trauma or injuries. Started a new medications or new foods. - Related Data Home Medications Medication Instructions Recorded Confirmed Ergocalciferol (Vitamin D2) 50,000 unit PO PRO 11/04/17 11/04/17 [Vitamin D2] Allergies Allergy/AdvReac Type Severity Reaction Status Date / Time almond Allergy Unknown Verified 11/04/17 17:27 barley Allergy Unknown Verified 11/04/17 17:27 black pepper Allergy Unknown Verified 11/04/17 17:27 Mushroom Allergy Unknown Verified 11/04/17 17:27 shellfish derived [Lobster] Allergy Unknown Verified 11/04/17 17:27 [place] Seed Allergy Unknown Verified 11/04/17 17:27 wheat Allergy Unknown Verified 11/04/17 17:27 Yeast Allergy Unknown Verified 11/04/17 17:27 gluten AdvReac Nausea & Verified 11/04/17 17:27 Vomiting Milk Containing Products AdvReac Abdominal Verified 11/04/17 17:27 [Dairy] Pain NELLIE SEEDS Allergy Unknown Uncoded 11/04/17 17:27 Review of Systems ROS Statement: Those systems with pertinent positive or pertinent negative responses have been documented in the HPI. ROS Other: All systems not noted in ROS Statement are negative. Constitutional: Denies: fever, chills Eyes: Denies: eye pain, eye discharge ENT: Denies: ear pain, throat pain Respiratory: Denies: cough, dyspnea, wheezes, hemoptysis Cardiovascular: Denies: chest pain, palpitations, dyspnea on exertion, orthopnea , syncope Endocrine: Denies: fatigue, polydipsia, polyuria Gastrointestinal: Denies: abdominal pain, nausea, vomiting Genitourinary: Denies: urgency, dysuria, frequency, hematuria Musculoskeletal: Reports: other (Left-sided neck pain). Denies: back pain Skin: Denies: rash, lesions Neurological: Denies: headache, weakness, numbness, paresthesias, confusion, abnormal gait, vertigo Psychiatric: Denies: anxiety, depression Hematological/Lymphatic: Denies: easy bleeding, easy bruising Past Medical History Past Medical History: Eye Disorder, Neurologic Disorder, Syncope Additional Past Medical History / Comment(s): Optic neuritis in past (has caused visual loss bilateral eyes), POTS-hyponatremia and has had past syncopal episode, bouts of weakness and shooting pain down extremities at times-being worked up for MS, MRI showed lesions/LP was negative per pt, possible asthma. 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 Past Anesthesia/Blood Transfusion Reactions: No Reported Reaction Past Psychological History: No Psychological Hx Reported Smoking Status: Never smoker Past Alcohol Use History: Rare Past Drug Use History: None Reported - Past Family History Sister(s) History Unknown: Yes Family Medical History: No Reported History Additional Family Medical History / Comment(s): Pt was adopted. Father History Unknown: Yes Additional Family Medical History / Comment(s): Pt was adopted. General Exam Limitations: no limitations General appearance: alert, in no apparent distress Head exam: Present: atraumatic, normocephalic, normal inspection Eye exam: Present: normal appearance, PERRL, EOMI. Absent: scleral icterus, conjunctival injection, periorbital swelling ENT exam: Present: normal exam, mucous membranes moist Neck exam: Present: normal inspection, full ROM. Absent: tenderness, meningismus, lymphadenopathy, thyromegaly Respiratory exam: Present: normal lung sounds bilaterally. Absent: respiratory distress, wheezes, rales, rhonchi, stridor Cardiovascular Exam: Present: regular rate, normal rhythm, normal heart sounds. Absent: systolic murmur, diastolic murmur, rubs, gallop, clicks GI/Abdominal exam: Present: soft, normal bowel sounds. Absent: distended, tenderness, guarding, rebound, rigid Rectal exam: Present: deferred Extremities exam: Present: normal inspection, full ROM, normal capillary refill. Absent: tenderness, pedal edema, joint swelling, calf tenderness Back exam: Present: normal inspection, full ROM. Absent: tenderness, CVA tenderness (R), CVA tenderness (L), paraspinal tenderness Neurological exam: Present: alert, oriented X3, CN II-XII intact, normal gait, reflexes normal. Absent: altered, abnormal gait, motor sensory deficit Psychiatric exam: Present: normal affect, normal mood Skin exam: Present: warm, dry, intact, normal color. Absent: rash Course Vital Signs 11/04/17 16:48 Temperature 97.9 F Pulse Rate 95 Respiratory 16 Rate Blood Pressure 134/79 O2 Sat by Pulse 98 Oximetry Medical Decision Making - Medical Decision Making 26-year-old female presented for evaluation of neck pain. She has had past medical history as noted above. On physical examination there are no acute abnormalities observed with cranial nerves II-12 intact without focal neurologic deficits, normal gait and station, reflexes intact and equal bilaterally, lungs clear to auscultation bilaterally without bruit, neck reveals no bruits over carotid arteries as well. There is no sensitivity to light and she has normal strength and sensation. The patient's presentation was discussed with her rn pediatric Dr.Thomas Arenas who stated that given her benign presentation he agreed with plan to discharge her with instructions to call his office tomorrow to set up an appointment for tomorrow or next week. He further provided his cell # and advised the patient to call him if she had any complications or concerns over the weekend. This discussion was related the patient and she was given his personal cell phone number. All questions were answered to the patient's satisfaction. The patient was further advised to return to this facility if her symptoms should worsen or persist. The patient acknowledged an understanding of all information provided and agreed with this plan of care. 11/05/17 01:04 Normal sinus rhythm with ventricular rate of 75, HARMONY 142, QRS 88, QT/QTC 388/ 433. Disposition Clinical Impression: Neck pain Disposition: HOME SELF-CARE Condition: Stable Instructions: Acute Neck Pain (ED) Additional Instructions: Presentation and physical exam were discussed with Dr. Ric Arenas this evening who agreed with plan to forego a CT head/neck/chest and to have you follow up in his office tomorrow or next week. He has requested you call his office tomorrow to make an appointment. He has further provided his cell phone number (Dr. Ric Arenas: [phone]) and states you should call him with any changes over the weekend. Referrals: George De Anda MD [Primary Care Provider] - 1-2 days Ric Arenas MD [REFERRING] - 1-2 days Time of Disposition: 18:49
== END 2017-11-04 18:55 | disposition home or self-care (01) ==
LOC: EC 16:38
DX: M54.2 Cervicalgia (principal); Z79.899 Other long term (current) drug therapy; Z91.018 Allergy to other foods; Z91.013 Allergy to seafood; Z91.011 Allergy to milk products
CPT/HCPCS: 93005; 99283

== ENCOUNTER 2017-12-01 09:54 | Emergency (ER) | payer OTHER ==
[2017-12-01] MEDS ORDERED: RX INFO: IV CONTRAST WAS GIVEN 1 EACH MISC MISCELLANE PRN (10:20)
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
[2017-12-01 11:03] LABS: Basophils % (A) 0 %; Eosinophils # (A) 0.1 k/uL (0-0.7); Eosinophils % (A) 1 %; HCT 41.1 % (34.0-46.0); HGB 13.9 gm/dL (11.4-16.0); Lymphocytes # (A) 1.1 k/uL (1.0-4.8); Lymphocytes % (A) 15 %; MCH 32.1 pg (25.0-35.0); MCHC 33.9 g/dL (31.0-37.0); MCV 94.6 fL (80.0-100.0); Mean Platelet Volume 8.5; Monocytes # (A) 0.4 k/uL (0-1.0); Monocytes % (A) 5 %; Neutrophils # (A) 5.4 k/uL (1.3-7.7); Neutrophils % (A) 77 %; Platelet Count 252 k/uL (150-450); RBC 4.34 m/uL (3.80-5.40); RDW 13.5 % (11.5-15.5); WBC 7.1 k/uL (3.8-10.6)
[2017-12-01 11:11] LABS: Amorphous Sediment,Urine Rare /hpf; Appearance,Urine Cloudy (Clear); Bacteria,Urine Rare /hpf; Bilirubin,Urine Negative (Negative); Blood,Urine Negative (Negative); Color,Urine Yellow; Glucose,Urine (UA) Negative (Negative); Ketones,Urine Negative (Negative); Leukocyte Esterase,Urine Trace (Negative); Mucus,Urine Moderate /hpf; Nitrite,Urine Negative (Negative); Protein,Urine Trace (Negative); RBC,Urine 1 /hpf (0-5); Squamous Epithelial Cell,Urine 2 /hpf (0-4); Urobilinogen,Urine <2.0 mg/dL (<2.0); WBC,Urine 1 /hpf (0-5)
[2017-12-01 11:13] LABS: ALT 30 U/L (9-52); AST 17 U/L (14-36); Albumin 4.4 g/dL (3.5-5.0); Alcohol <10 mg/dL; Alkaline Phosphatase 58 U/L (38-126); Anion Gap 9 mmol/L; Blood Urea Nitrogen 12 mg/dL (7-17); Calcium 9.8 mg/dL (8.4-10.2); Carbon Dioxide 26 mmol/L (22-30); Chloride 106 mmol/L (98-107); Glucose 88 mg/dL (74-99); Potassium 4.3 mmol/L (3.5-5.1); Sodium 141 mmol/L (137-145); Total Bilirubin 0.5 mg/dL (0.2-1.3); Total Protein 7.1 g/dL (6.3-8.2)
[2017-12-01 11:19] LABS: Amphetamine Screen,Urine Not Detected (NotDetected); Barbiturate Screen,Urine Not Detected (NotDetected); Benzodiazepines Screen,Urine Not Detected (NotDetected); Cocaine Screen,Urine Not Detected (NotDetected); Methadone Screen, Urine Not Detected (NotDetected); Opiate Screen,Urine Not Detected (NotDetected); Oxycodone Screen, Urine Not Detected (NotDetected); Phencyclidine Screen,Urine Not Detected (NotDetected); Tricyclic Antidepressant,Urine Not Detected (NotDetected); Urn Cannabinoid Scrn Not Detected (NotDetected)
[2017-12-01 11:21] LABS: Partial Thromboplastin Time 24.4 sec (22.0-30.0); Prothrombin Time 10.1 sec (9.0-12.0)
[2017-12-01 11:23] LABS: Creatine Kinase 101 U/L (30-135)
[2017-12-01 11:36] LABS: Creatine Kinase MB 0.6 ng/mL (0.0-2.4); Troponin I <0.012 ng/mL (0.000-0.034)
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
[2017-12-01 13:13] VITALS: BP 109/56; PULSE 78; RESP 15; TEMP 98.6
== END 2017-12-01 13:33 | disposition home or self-care (01) ==
LOC: EC 09:54
DX: R51 Headache (principal); Z79.899 Other long term (current) drug therapy; Z91.011 Allergy to milk products; Z91.013 Allergy to seafood; Z91.018 Allergy to other foods; Z91.048 Other nonmedicinal substance allergy status; V47.5XXA Car driver injured in collision with fixed or stationary object in traffic accident, initial encounter; Y92.89 Other specified places as the place of occurrence of the external cause
CPT/HCPCS: 36415; 93005; 86900; 86901; 80053; 82550; 82553; 84484; 85025; 85610; 85730; 86850; 81001; 81025; 80306; 80320; 72125; 70450; 71260; 74177; 99285; Q9967

== ENCOUNTER 2018-07-31 20:53 | Emergency (ER) | payer BC, OTHER ==
[2018-07-31 21:00] VITALS: RESP 18
[2018-07-31] MEDS ORDERED: SODIUM CHLORIDE 0.9% 1,000 ML IV STA (21:52)
[2018-07-31 22:13] LABS: Basophils % (A) 0 %; Eosinophils # (A) 0.1 k/uL (0-0.7); Eosinophils % (A) 1 %; HCT 40.1 % (34.0-46.0); HGB 13.3 gm/dL (11.4-16.0); Lymphocytes % (A) 11 %; MCHC 33.2 g/dL (31.0-37.0); MCV 96.6 fL (80.0-100.0); Monocytes # (A) 0.4 k/uL (0-1.0); Monocytes % (A) 4 %; Neutrophils # (A) 7.8 k/uL (1.3-7.7); Neutrophils % (A) 82 %; Platelet Count 216 k/uL (150-450); RBC 4.16 m/uL (3.80-5.40); RDW 12.4 % (11.5-15.5); WBC 9.5 k/uL (3.8-10.6)
[2018-07-31 22:23] LABS: ALT 27 U/L (9-52); AST 15 U/L (14-36); Alkaline Phosphatase 55 U/L (38-126); Anion Gap 9 mmol/L; Appearance,Urine Clear (Clear); Bilirubin,Urine Negative (Negative); Blood Urea Nitrogen 11 mg/dL (7-17); Blood,Urine Negative (Negative); Calcium 9.2 mg/dL (8.4-10.2); Carbon Dioxide 22 mmol/L (22-30); Chloride 106 mmol/L (98-107); Color,Urine Yellow; Glucose 119 mg/dL (74-99); Glucose,Urine (UA) Negative (Negative); Ketones,Urine Negative (Negative); Leukocyte Esterase,Urine Large (Negative); Mucus,Urine Rare /hpf; Nitrite,Urine Negative (Negative); PH, Urine 5.5 (5.0-8.0); Potassium 3.9 mmol/L (3.5-5.1); Protein,Urine Negative (Negative); RBC,Urine 1 /hpf (0-5); Sodium 137 mmol/L (137-145); Specific Gravity,Urine 1.015 (1.001-1.035); Squamous Epithelial Cell,Urine 2 /hpf (0-4); Total Bilirubin 0.5 mg/dL (0.2-1.3); Total Protein 6.9 g/dL (6.3-8.2); Urobilinogen,Urine <2.0 mg/dL (<2.0); WBC,Urine 14 /hpf (0-5)
--- NOTE | 2018-07-31 23:03 | CT ---
EXAMINATION TYPE: CT brain wo con DATE OF EXAM: 07/31/2018 COMPARISON: 12/01/2017 HISTORY: headache CT DLP: 1036 mGycm. Automated Exposure Control for Dose Reduction was Utilized. TECHNIQUE: CT scan of the head is performed without contrast. FINDINGS: Ventricles and sulci appear normal. There is no mass effect nor midline shift. There is n o sign of intracranial hemorrhage. The calvarium is intact. IMPRESSION: Negative CT scan of the brain. No change.
[2018-07-31] MEDS ORDERED: KETOROLAC 30 MG/ML 1 ML VIAL IVP STA (23:04)
--- NOTE | 2018-07-31 23:12 | ED ---
Headache HPI - General Mode of arrival: ambulatory Limitations: no limitations <Ileana Johnson - Last Filed: 08/01/18 03:09> <Lilliam Ramirez - Last Filed: 08/02/18 07:54> - General Chief Complaint: Headache Stated Complaint: Headache Time Seen by Provider: 07/31/18 21:24 - History of Present Illness Initial Comments: 27-year-old female patient presents to the emergency department today for evaluation of dental pain and increased headache. Patient states for the last couple of weeks she has been experiencing a pressure around her eyes. Patient states she is initially treated for sinus infection by her primary care physician but that did not improve her symptoms at all. Patient states that her primary care physician is considering MRI but has not yet ordered the test. Patient states that last evening she did have a tooth break and caused increased pain to her face up into her head. Patient states that today while at the store she became pale, shaky, and had increased pressure to her posterior head. Patient has a known sodium deficiency, but controls it well with diet. Patient denies any recent rash, fever, shortness breath, chest pain , abdominal pain, nausea, vomiting, diarrhea, constipation, back pain, numbness , tingling, hematuria, dysuria, urinary urgency, urinary frequency, headache, visual changes, or any other complaints. (Ileana Johnson) - Related Data Home Medications Medication Instructions Recorded Confirmed Ergocalciferol (Vitamin D2) 50,000 unit PO PRO 11/04/17 07/31/18 [Vitamin D2] Ascorbic Acid [Vitamin C] 500 mg PO DAILY 12/01/17 07/31/18 Immune System Booster 1 tab PO DAILY 12/01/17 07/31/18 Allergies Allergy/AdvReac Type Severity Reaction Status Date / Time almond Allergy Unknown Verified 07/31/18 21:00 barley Allergy Unknown Verified 07/31/18 21:00 black pepper Allergy Unknown Verified 07/31/18 21:00 Mushroom Allergy Unknown Verified 07/31/18 21:00 shellfish derived [Lobster] Allergy Unknown Verified 07/31/18 21:00 [place] Seed Allergy Unknown Verified 07/31/18 21:00 wheat Allergy Unknown Verified 07/31/18 21:00 Yeast Allergy Unknown Verified 07/31/18 21:00 gluten AdvReac Nausea & Verified 07/31/18 21:00 Vomiting Milk Containing Products AdvReac Abdominal Verified 07/31/18 21:00 [Dairy] Pain NELLIE SEEDS Allergy Unknown Uncoded 07/31/18 21:00 Review of Systems ROS Other: All systems not noted in ROS Statement are negative. <Ileana Johnson M - Last Filed: 08/01/18 03:09> ROS Other: All systems not noted in ROS Statement are negative. <Lilliam Ramirez P - Last Filed: 08/02/18 07:54> ROS Statement: Those systems with pertinent positive or pertinent negative responses have been documented in the HPI. Past Medical History Past Medical History: Eye Disorder, Neurologic Disorder, Syncope Additional Past Medical History / Comment(s): Optic neuritis in past (has caused visual loss bilateral eyes), POTS-hyponatremia and has had past syncopal episode, bouts of weakness and shooting pain down extremities at times-being worked up for MS, MRI showed lesions/LP was negative per pt, possible asthma. 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 Past Anesthesia/Blood Transfusion Reactions: No Reported Reaction Past Psychological History: No Psychological Hx Reported Smoking Status: Never smoker Past Alcohol Use History: Rare Past Drug Use History: None Reported - Past Family History Sister(s) History Unknown: Yes Family Medical History: No Reported History Additional Family Medical History / Comment(s): Pt was adopted. Father History Unknown: Yes Additional Family Medical History / Comment(s): Pt was adopted. <Ileana Johnson M - Last Filed: 08/01/18 03:09> General Exam Limitations: no limitations General appearance: alert, in no apparent distress, other (This is a well- developed, well-nourished adult female patient in no acute distress. Vital signs upon presentation are temperature 90.3F, pulse 82, respirations 18, blood pressure 131/78, pulse ox 98% on room air.) Eye exam: Present: normal appearance, PERRL, EOMI. Absent: scleral icterus, conjunctival injection, nystagmus, periorbital swelling ENT exam: Present: normal exam, normal oropharynx, mucous membranes moist Respiratory exam: Present: normal lung sounds bilaterally. Absent: respiratory distress, wheezes, rales, rhonchi, stridor Cardiovascular Exam: Present: regular rate, normal rhythm, normal heart sounds. Absent: systolic murmur, diastolic murmur, rubs, gallop, clicks Neurological exam: Present: alert, oriented X3, CN II-XII intact, other ( Strength in all 4 extremities is 5/5.) Psychiatric exam: Present: normal affect, normal mood Skin exam: Present: warm, dry, intact, normal color. Absent: rash <Ileana Johnson - Last Filed: 08/01/18 03:09> Vital Signs 07/31/18 07/31/18 08/01/18 20:54 22:08 00:01 Temperature 98.3 F 98.7 F Pulse Rate 82 80 72 Respiratory 18 18 18 Rate Blood Pressure 131/78 111/66 109/58 O2 Sat by Pulse 98 98 97 Oximetry Medical Decision Making - Lab Data Result diagrams: 07/31/18 22:05 07/31/18 22:05 - Radiology Data Radiology results: report reviewed, image reviewed <Ileana Johnson - Last Filed: 08/01/18 03:09> - Lab Data Result diagrams: 07/31/18 22:05 07/31/18 22:05 <Lilliam Ramirez - Last Filed: 08/02/18 07:54> - Medical Decision Making 27-year-old female patient presents the emergency department today for evaluation of head pressure, shaking, and chills. Physical examination is unremarkable. Patient is neurologically intact. Labs are performed right unremarkable. CT brain was performed and showed no acute changes. Discuss findings and results with the patient. Upon reevaluation she is feeling better. We did discuss possibility of migraine headaches. Patient is discharged home to follow-up with her primary care physician to discuss MRI. Return parameters were discussed in detail. She verbalizes understanding and agreed with this plan. (Ileana Johnson) I was available for consultation in the emergency department. The history and physical exam were done by the midlevel provider. I was consulted for this patient's care. I reviewed the case with the midlevel provider and based on their presentation of the patient, I agree with the assessment, medical decision making and plan of care as documented. (Lilliam Ramirez) - Lab Data Lab Results 07/31/18 07/31/18 07/31/18 Range/Units 22:05 22:05 22:05 WBC 9.5 (3.8-10.6) k/uL RBC 4.16 (3.80-5.40) m/uL Hgb 13.3 (11.4-16.0) gm/dL Hct 40.1 (34.0-46.0) % MCV 96.6 (80.0-100.0) fL MCH 32.0 (25.0-35.0) pg MCHC 33.2 (31.0-37.0) g/dL RDW 12.4 (11.5-15.5) % Plt Count 216 (150-450) k/uL Neutrophils % 82 % Lymphocytes % 11 % Monocytes % 4 % Eosinophils % 1 % Basophils % 0 % Neutrophils # 7.8 H (1.3-7.7) k/uL Lymphocytes # 1.0 (1.0-4.8) k/uL Monocytes # 0.4 (0-1.0) k/uL Eosinophils # 0.1 (0-0.7) k/uL Basophils # 0.0 (0-0.2) k/uL Sodium 137 (137-145) mmol/L Potassium 3.9 (3.5-5.1) mmol/L Chloride 106 (98-107) mmol/L Carbon Dioxide 22 (22-30) mmol/L Anion Gap 9 mmol/L BUN 11 (7-17) mg/dL Creatinine 0.59 (0.52-1.04) mg/dL Est GFR (CKD-EPI)AfAm >90 (>60 ml/min/1.73 sqM) Est GFR (CKD-EPI)NonAf >90 (>60 ml/min/1.73 sqM) Glucose 119 H (74-99) mg/dL Calcium 9.2 (8.4-10.2) mg/dL Total Bilirubin 0.5 (0.2-1.3) mg/dL AST 15 (14-36) U/L ALT 27 (9-52) U/L Alkaline Phosphatase 55 (38-126) U/L Total Protein 6.9 (6.3-8.2) g/dL Albumin 4.0 (3.5-5.0) g/dL Urine Color Urine Appearance (Clear) Urine pH (5.0-8.0) Ur Specific [place] (1.001-1.035) Urine Protein (Negative) Urine Glucose (UA) (Negative) Urine Ketones (Negative) Urine Blood (Negative) Urine Nitrite (Negative) Urine Bilirubin (Negative) Urine Urobilinogen (<2.0) mg/dL Ur Leukocyte Esterase (Negative) Urine RBC (0-5) /hpf Urine WBC (0-5) /hpf Ur Squamous Epith Cells (0-4) /hpf Urine Mucus (None) /hpf Urine HCG, Qual Not Detected (Not Detectd) 07/31/18 Range/Units 22:05 WBC (3.8-10.6) k/uL RBC (3.80-5.40) m/uL Hgb (11.4-16.0) gm/dL Hct (34.0-46.0) % MCV (80.0-100.0) fL MCH (25.0-35.0) pg MCHC (31.0-37.0) g/dL RDW (11.5-15.5) % Plt Count (150-450) k/uL Neutrophils % % Lymphocytes % % Monocytes % % Eosinophils % % Basophils % % Neutrophils # (1.3-7.7) k/uL Lymphocytes # (1.0-4.8) k/uL Monocytes # (0-1.0) k/uL Eosinophils # (0-0.7) k/uL Basophils # (0-0.2) k/uL Sodium (137-145) mmol/L Potassium (3.5-5.1) mmol/L Chloride (98-107) mmol/L Carbon Dioxide (22-30) mmol/L Anion Gap mmol/L BUN (7-17) mg/dL Creatinine (0.52-1.04) mg/dL Est GFR (CKD-EPI)AfAm (>60 ml/min/1.73 sqM) Est GFR (CKD-EPI)NonAf (>60 ml/min/1.73 sqM) Glucose (74-99) mg/dL Calcium (8.4-10.2) mg/dL Total Bilirubin (0.2-1.3) mg/dL AST (14-36) U/L ALT (9-52) U/L Alkaline Phosphatase (38-126) U/L Total Protein (6.3-8.2) g/dL Albumin (3.5-5.0) g/dL Urine Color Yellow Urine Appearance Clear (Clear) Urine pH 5.5 (5.0-8.0) Ur Specific [place] 1.015 (1.001-1.035) Urine Protein Negative (Negative) Urine Glucose (UA) Negative (Negative) Urine Ketones Negative (Negative) Urine Blood Negative (Negative) Urine Nitrite Negative (Negative) Urine Bilirubin Negative (Negative) Urine Urobilinogen <2.0 (<2.0) mg/dL Ur Leukocyte Esterase Large H (Negative) Urine RBC 1 (0-5) /hpf Urine WBC 14 H (0-5) /hpf Ur Squamous Epith Cells 2 (0-4) /hpf Urine Mucus Rare H (None) /hpf Urine HCG, Qual (Not Detectd) - Radiology Data CT brain performed without contrast. Report was reviewed in its entirety. Impression by Dr. Barnard shows negative computed tomography scan of the brain. No change. (Ileana Johnson) Disposition Is patient prescribed a controlled substance at d/c from ED?: No Time of Disposition: 23:41 <Ileana Johnson - Last Filed: 08/01/18 03:09> <Lilliam Ramirez - Last Filed: 08/02/18 07:54> Clinical Impression: Pressure in head, Fractured tooth Disposition: HOME SELF-CARE Condition: Good Instructions: Acute Headache (ED), Toothache (ED) Additional Instructions: Follow up with dentistry as soon as possible. Follow up with your primary care physician to discuss MRI. Return here immediately for any new, worsening, or concerning symptoms. Referrals: George De Anda MD [Primary Care Provider] - 1-2 days Addendum entered and electronically signed by Ileana Johnson, WAGON DRILLER-BC, AGACNP -BC 08/01/18 03:25: EKG obtained at 2111 shows normal sinus rhythm with a prolonged QT interval. Ventricular rate is 82, WV interval 158, QR pentecostal 80, QT 404, QTC 472. No evidence of ST elevation or depression. There is T-wave inversions in V1 and V2 and V3.
[2018-08-01 00:02] VITALS: BP 109/58; PULSE 72; TEMP 98.7
== END 2018-08-01 00:01 | disposition home or self-care (01) ==
LOC: EC 20:53
DX: S02.5XXA Fracture of tooth (traumatic), initial encounter for closed fracture (principal); Z91.018 Allergy to other foods; Z91.013 Allergy to seafood; Z91.011 Allergy to milk products; Z95.1 Presence of aortocoronary bypass graft; X58.XXXA Exposure to other specified factors, initial encounter
CPT/HCPCS: 36415; 93005; 80053; 85025; 81001; 81025; 87086; 70450; 99284; 96374; 96361; J1885

== ENCOUNTER → 2018-10-07 | Outpatient (CLI) | payer BC ==
--- NOTE | 2018-10-09 09:27 | MR ---
PRE AND POSTCONTRAST ENHANCED MRI OF THE BRAIN: CLINICAL HISTORY: H47.10 Unspecified papilledema COMPARISON: 02/06/2016 CONTRAST: 7ml Gadavist Multiplanar and multispin-echo imaging of the brain was performed both before and after the administr ation of contrast. The ventricles, basal cisterns and sulci overlying the cerebral convexities are within normal limits. There is no evidence for midline shift or mass effect. Acute intracranial hemorrhage or extra-axial collection is not evident. Again noted are 3 or 4 scattered tiny nonspecific foci of increased signal within the deep white tiff[place] er of both cerebral hemispheres. Largest lesion is noted within the right frontal subcortical white m atter which measures 5 mm and is stable relative to the prior study. Differential diagnostic possibil ities include demyelinating disease, sequela of chronic migraine headaches, Lyme's disease as well as vasculitis to name a few. Following contrast administration, there is no evidence for pathologic enhancement or enhancing mass. The paranasal sinuses are well-aerated. Small amount of fluid within the right-sided mastoid air cell s. IMPRESSION: 1. Stable nonspecific white matter changes as discussed above. 2. Mild chronic right-sided mastoiditis.
== END ==
LOC: RADMRIMAIN 17:45
PROVIDERS: ATTEND Family Medicine
DX: R90.89 Other abnormal findings on diagnostic imaging of central nervous system (principal)
CPT/HCPCS: 70553; A9585

== ENCOUNTER → 2018-10-07 | Outpatient (CLI) | payer BC ==
--- NOTE | 2018-10-07 08:48 | CT ---
EXAMINATION TYPE: CT brain wo/w con DATE OF EXAM: 10/07/2018 COMPARISON: 07/31/2018 HISTORY: Eye pain for 2-[address] DLP: 1784.2 mGycm Automated Exposure Control for Dose Reduction was Utilized. TECHNIQUE: CT scan of the head is performed with IV contrast.,CT scan of the head is performed withou t and with without and with IV Contrast, patient injected with 100 mL of Isovue 300. FINDINGS: Noncontrast images show no acute intracranial hemorrhage or midline shift. The ventricles and sulci are within normal limits in size. Postcontrast images show no suspicious enhancing intrapa renchymal mass. Focal area of hypoattenuation in the left occipital lobe on series 12 image 35 on the sagittal image is demonstrated to relate to a prominent sulcus. The globes are intact and the visual ized sinuses are clear. The extraocular muscles appear symmetric. Orbital nerves are also symmetric. Globes maintain a rounde d morphology and ocular lenses remain symmetric and in place in the anterior chambers. Superior ophth almic veins are nondilated. There is no intraconal or extraconal enhancing mass identified. Very mini mal undulation is seen of the left orbital nerve. No evidence of a partially empty sella turcica. IMPRESSION: 1. No intraconal or extraconal mass. No CT evidence of carotid cavernous fistula. No asymmetry of the globes or extraocular muscles. There is very minimal undulation of the left optic nerve that may be physiologic. However MRI could assess for other evidence of increased intracranial pressure in this p atient with eye pain. 2. No evidence of intracranial hemorrhage, midline shift or abnormal intracranial enhancement.
== END | disposition home or self-care (01) ==
LOC: RADCTMAIN 07:54
PROVIDERS: ATTEND Family Medicine
DX: H57.13 Ocular pain, bilateral (principal)
CPT/HCPCS: 70470; Q9967

== ENCOUNTER 2019-01-16 18:06 | Emergency (ER) | payer BC ==
[2019-01-16 18:32] VITALS: TEMP 98.2
[2019-01-16 19:35] VITALS: PULSE 72
--- NOTE | 2019-01-16 19:41 | ED ---
General Adult HPI - General Chief complaint: Neuro Symptoms/Deficit Stated complaint: Slurred speech Time Seen by Provider: 01/16/19 18:44 Source: patient Mode of arrival: ambulatory Limitations: no limitations - History of Present Illness Initial comments: 28-year-old female patient presents to the emergency department today for evaluation after having an episode around 12:30 this afternoon where she was having difficulty speaking. States that she was going to the drive-through at a restaurant and try to place her order but the fiscal clerk could not understand what she was saying. States that she then called her and he was also unable to understand what she was saying. She states they're also long pauses in her speech which is unusual. States that this lasted approximately 15 minutes and then completely resolved. States that she called her primary care physician who directed her to present to the ER for further evaluation. Patient states for the last several months she has been having intermittent neurologic symptoms. States that she was evaluated for multiple sclerosis however they feel this is not likely diagnosis for her. States that this is the first time she had difficulty with her speech. She denies any headache, blurred vision, double vision, dizziness, or weakness to her extremities. Patient denies any recent rash, fever, chills, shortness breath, chest pain, abdominal pain, nausea , vomiting, diarrhea, constipation, back pain, hematuria, dysuria, urinary urgency, urinary frequency, headache or any other complaints. - Related Data Home Medications Medication Instructions Recorded Confirmed Thyroid,Pork [Blown Film Extrusion Operator Thyroid] 15 mg PO DAILY 01/16/19 01/16/19 Allergies Allergy/AdvReac Type Severity Reaction Status Date / Time almond Allergy Unknown Verified 01/16/19 19:37 barley Allergy Unknown Verified 01/16/19 19:37 black pepper Allergy Unknown Verified 01/16/19 19:37 Mushroom Allergy Unknown Verified 01/16/19 19:37 shellfish derived [Lobster] Allergy Unknown Verified 01/16/19 19:37 [place] Seed Allergy Unknown Verified 01/16/19 19:37 wheat Allergy Unknown Verified 01/16/19 19:37 Yeast Allergy Unknown Verified 01/16/19 19:37 gluten AdvReac Nausea & Verified 01/16/19 19:37 Vomiting Milk Containing Products AdvReac Abdominal Verified 01/16/19 19:37 [Dairy] Pain NELLIE SEEDS Allergy Unknown Uncoded 07/31/18 21:00 Review of Systems ROS Statement: Those systems with pertinent positive or pertinent negative responses have been documented in the HPI. ROS Other: All systems not noted in ROS Statement are negative. Past Medical History Past Medical History: Eye Disorder, Neurologic Disorder, Syncope Additional Past Medical History / Comment(s): Optic neuritis in past (has caused visual loss bilateral eyes), POTS-hyponatremia and has had past syncopal episode, bouts of weakness and shooting pain down extremities at times-being worked up for MS, MRI showed lesions/LP was negative per pt, possible asthma. 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 Past Anesthesia/Blood Transfusion Reactions: No Reported Reaction Past Psychological History: No Psychological Hx Reported Smoking Status: Never smoker Past Alcohol Use History: Rare Past Drug Use History: None Reported - Past Family History Sister(s) History Unknown: Yes Family Medical History: No Reported History Additional Family Medical History / Comment(s): Pt was adopted. Father History Unknown: Yes Additional Family Medical History / Comment(s): Pt was adopted. General Exam Limitations: no limitations General appearance: alert, in no apparent distress, other (Physical well- developed, well-nourished adult female patient in no acute distress. Vital signs upon presentation are temperature 98.2F, pulse 86, respirations 18, blood pressure 127/83, pulse ox 99% on room air.) Eye exam: Present: normal appearance, PERRL, EOMI. Absent: scleral icterus, conjunctival injection, nystagmus, periorbital swelling ENT exam: Present: normal exam, normal oropharynx, mucous membranes moist Respiratory exam: Present: normal lung sounds bilaterally. Absent: respiratory distress, wheezes, rales, rhonchi, stridor Cardiovascular Exam: Present: regular rate, normal rhythm, normal heart sounds. Absent: systolic murmur, diastolic murmur, rubs, gallop, clicks GI/Abdominal exam: Present: soft, normal bowel sounds. Absent: distended, tenderness, guarding, rebound, rigid Neurological exam: Present: alert, oriented X3, CN II-XII intact Expanded Patient oriented to: Present: person, place, time Speech: Present: fluid speech Cranial nerves: EOM's Intact: Normal, Tongue Deviation: Normal, Nystagmus: Normal, Facial Palsy with Forehead Movement: Normal Cerebellar function: Finger to Nose: Normal Motor strength exam: RUE: 5, LUE: 5, RLE: 5, LLE: 5 Psychiatric exam: Present: normal affect, normal mood Skin exam: Present: warm, dry, intact, normal color. Absent: rash Course Vital Signs 01/16/19 01/16/19 01/16/19 18:20 19:25 19:30 Temperature 98.2 F Pulse Rate 86 72 Respiratory 18 15 Rate Blood Pressure 127/83 121/72 O2 Sat by Pulse 99 93 L Oximetry 01/16/19 21:18 Temperature Pulse Rate 72 Respiratory 16 Rate Blood Pressure 116/88 O2 Sat by Pulse 100 Oximetry EKG Findings - EKG Comments: EKG Findings:: EKG interpreted by me at 1930 shows normal sinus rhythm with a ventricular rate of 79, NV interval 146, QRS duration 86, QT 394, QTC 451. No evidence of ST elevation or depression. Medical Decision Making - Medical Decision Making 28-year-old female patient presents to the emergency department today for evaluation after having a 15 minute episode of speech disturbance around 12:30 this afternoon. Physical examination upon arrival was unremarkable. Patient is neurologically intact with no focal deficits. Labs reviewed and are unremarkable. Did perform CT angiography of the brain which showed no acute intracranial abnormalities. I did discuss findings and results with the patient. Upon reevaluation she remains neurologically intact has had no recurrence of symptoms. She'll be discharged home to follow-up with her neurologist for further evaluation as soon as possible. Return parameters were discussed in detail. She verbalizes understanding and agrees this plan. - Lab Data Result diagrams: 01/16/19 19:30 01/16/19 19:30 Lab Results 01/16/19 01/16/19 01/16/19 Range/Units 19:30 19:30 19:30 WBC 5.4 (3.8-10.6) k/uL RBC 3.97 (3.80-5.40) m/uL Hgb 13.0 (11.4-16.0) gm/dL Hct 38.5 (34.0-46.0) % MCV 97.1 (80.0-100.0) fL MCH 32.7 (25.0-35.0) pg MCHC 33.7 (31.0-37.0) g/dL RDW 12.6 (11.5-15.5) % Plt Count 216 (150-450) k/uL Neutrophils % 49 % Lymphocytes % 40 % Monocytes % 5 % Eosinophils % 3 % Basophils % 1 % Neutrophils # 2.6 (1.3-7.7) k/uL Lymphocytes # 2.2 (1.0-4.8) k/uL Monocytes # 0.3 (0-1.0) k/uL Eosinophils # 0.2 (0-0.7) k/uL Basophils # 0.0 (0-0.2) k/uL PT 10.0 (9.0-12.0) sec INR 0.9 (<1.2) APTT 27.2 (22.0-30.0) sec Sodium 139 (137-145) mmol/L Potassium 4.7 (3.5-5.1) mmol/L Chloride 109 H (98-107) mmol/L Carbon Dioxide 24 (22-30) mmol/L Anion Gap 6 mmol/L BUN 17 (7-17) mg/dL Creatinine 0.66 (0.52-1.04) mg/dL Est GFR (CKD-EPI)AfAm >90 (>60 ml/min/1.73 sqM) Est GFR (CKD-EPI)NonAf >90 (>60 ml/min/1.73 sqM) Glucose 91 (74-99) mg/dL Calcium 9.3 (8.4-10.2) mg/dL Total Bilirubin 0.3 (0.2-1.3) mg/dL AST 19 (14-36) U/L ALT 24 (9-52) U/L Alkaline Phosphatase 53 (38-126) U/L Troponin I (0.000-0.034) ng/mL Total Protein 7.0 (6.3-8.2) g/dL Albumin 4.3 (3.5-5.0) g/dL Urine HCG, Qual (Not Detectd) 01/16/19 01/16/19 Range/Units 19:30 19:30 WBC (3.8-10.6) k/uL RBC (3.80-5.40) m/uL Hgb (11.4-16.0) gm/dL Hct (34.0-46.0) % MCV (80.0-100.0) fL MCH (25.0-35.0) pg MCHC (31.0-37.0) g/dL RDW (11.5-15.5) % Plt Count (150-450) k/uL Neutrophils % % Lymphocytes % % Monocytes % % Eosinophils % % Basophils % % Neutrophils # (1.3-7.7) k/uL Lymphocytes # (1.0-4.8) k/uL Monocytes # (0-1.0) k/uL Eosinophils # (0-0.7) k/uL Basophils # (0-0.2) k/uL PT (9.0-12.0) sec INR (<1.2) APTT (22.0-30.0) sec Sodium (137-145) mmol/L Potassium (3.5-5.1) mmol/L Chloride (98-107) mmol/L Carbon Dioxide (22-30) mmol/L Anion Gap mmol/L BUN (7-17) mg/dL Creatinine (0.52-1.04) mg/dL Est GFR (CKD-EPI)AfAm (>60 ml/min/1.73 sqM) Est GFR (CKD-EPI)NonAf (>60 ml/min/1.73 sqM) Glucose (74-99) mg/dL Calcium (8.4-10.2) mg/dL Total Bilirubin (0.2-1.3) mg/dL AST (14-36) U/L ALT (9-52) U/L Alkaline Phosphatase (38-126) U/L Troponin I <0.012 (0.000-0.034) ng/mL Total Protein (6.3-8.2) g/dL Albumin (3.5-5.0) g/dL Urine HCG, Qual Not Detected (Not Detectd) - Radiology Data Radiology results: report reviewed, image reviewed CT angiography of the brain and neck was obtained. Report was reviewed in its entirety. Impression by Dr. Sierra shows no significant abnormality. Disposition Clinical Impression: Speech disturbance Disposition: HOME SELF-CARE Condition: Good Instructions (If sedation given, give patient instructions): Aphasia (DC) Additional Instructions: Follow-up with your neurologist for recheck as soon as possible. Return to the emergency department immediately for any new, worsening, or concerning symptoms. Is patient prescribed a controlled substance at d/c from ED?: No Referrals: George De Anda MD [Primary Care Provider] - 1-2 days Time of Disposition: 21:46
[2019-01-16 19:54] LABS: INR 0.9 (<1.2); Partial Thromboplastin Time 27.2 sec (22.0-30.0)
[2019-01-16 19:55] LABS: ALT 24 U/L (9-52); AST 19 U/L (14-36); Albumin 4.3 g/dL (3.5-5.0); Alkaline Phosphatase 53 U/L (38-126); Anion Gap 6 mmol/L; Blood Urea Nitrogen 17 mg/dL (7-17); Calcium 9.3 mg/dL (8.4-10.2); Carbon Dioxide 24 mmol/L (22-30); Chloride 109 mmol/L (98-107); Glucose 91 mg/dL (74-99); Potassium 4.7 mmol/L (3.5-5.1); Sodium 139 mmol/L (137-145); Total Bilirubin 0.3 mg/dL (0.2-1.3)
[2019-01-16 19:57] LABS: Basophils % (A) 1 %; Eosinophils # (A) 0.2 k/uL (0-0.7); Eosinophils % (A) 3 %; HCT 38.5 % (34.0-46.0); Lymphocytes # (A) 2.2 k/uL (1.0-4.8); Lymphocytes % (A) 40 %; MCH 32.7 pg (25.0-35.0); MCHC 33.7 g/dL (31.0-37.0); MCV 97.1 fL (80.0-100.0); Mean Platelet Volume 7.5; Monocytes # (A) 0.3 k/uL (0-1.0); Monocytes % (A) 5 %; Neutrophils # (A) 2.6 k/uL (1.3-7.7); Neutrophils % (A) 49 %; Platelet Count 216 k/uL (150-450); RBC 3.97 m/uL (3.80-5.40); RDW 12.6 % (11.5-15.5); WBC 5.4 k/uL (3.8-10.6)
--- NOTE | 2019-01-16 21:02 | CT ---
EXAMINATION TYPE: CT angio head neck DATE OF EXAM: 01/16/2019 HISTORY: SLURRED SPEECH. COMPARISON: NONE CT DLP: 331.8 mGycm. Automated Exposure Control for Dose Reduction was Utilized. TECHNIQUE: CTA scan of the head and neck are performed with IV Contrast, patient injected with 65 mL of Isovue 370, axial images are obtained, coronal and sagittal reformatted images are reviewed. Thre e-D reconstructed images are created on an independent workstation and reviewed. FINDINGS: Carotid/Vascular Structures: There is bovine type arch which is normal variant. No significant plaque in the aortic arch is identified. Right common carotid artery shows normal origin from right brachio cephalic artery. There is no significant plaque or stenosis in the right common or internal carotid a rtery including at level of right carotid bulb. There is patent right external carotid artery without significant plaque or stenosis. There is no significant plaque or stenosis in the left common or internal carotid artery including at level of left carotid bulb. Left external carotid artery is patent without significant plaque or ignacio nosis. There is a codominant vertebrobasilar system. There is no significant focal stenosis or aneurysmal ch isak in the posterior circulation. There are hypoplastic bilateral posterior communicating arteries. Images of the anterior circulation show no significant focal stenosis or aneurysmal change. There is patent anterior communicating artery identified. No linear hypodensity to suggest dissection is evident. Other: The brain and neck are grossly unremarkable. IMPRESSION: No significant abnormality is seen.
[2019-01-16 21:19] VITALS: BP 116/88; RESP 16
== END 2019-01-16 22:07 | disposition home or self-care (01) ==
LOC: EC 18:06
DX: R47.9 Unspecified speech disturbances (principal); Z91.02 Food additives allergy status; Z91.011 Allergy to milk products; Z91.013 Allergy to seafood; Z91.018 Allergy to other foods; Z79.890 Hormone replacement therapy; Z95.1 Presence of aortocoronary bypass graft; Z87.74 Personal history of (corrected) congenital malformations of heart and circulatory system
CPT/HCPCS: 36415; 93005; 80053; 84484; 85025; 85610; 85730; 81025; 70496; 70498; 99285; Q9967

== ENCOUNTER 2019-03-02 14:28 | Emergency (ER) | payer BC ==
[2019-03-02] MEDS ORDERED: SODIUM CHLORIDE 0.9% 1,000 ML IV ONE (14:49)
--- NOTE | 2019-03-02 14:59 | ED ---
General Adult HPI - General Chief complaint: Weakness Stated complaint: diarrhea, high heart rate Time Seen by Provider: 03/02/19 14:48 Source: patient Mode of arrival: wheelchair Limitations: no limitations - History of Present Illness Initial comments: 20-year-old female with history of NAGEL, ASD, hashimotos presenting for presyncope. Patient states that she had excessive diarrhea this morning. She states during one episode of diarrhea she felt like she was going to pass out, she states she became warm and lightheaded. Patient has history of ASD however had a cardiology appointment at [facility] where stress test was performed revealing no abnormality. Patient has a chest pain dyspnea dyspnea upon exertion prior to the onset of her presyncopal episode. Patient states she felt fine until she was on the toilet. She said she sat down after beginning to feel syncopal and did not have an actual episode. Denies any head injury, or fall. Patient states after she felt slightly nauseous. She denies any severe abdominal pain. Patient denies vomiting headache dizziness. 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 Remaining review of systems negative - Related Data Home Medications Medication Instructions Recorded Confirmed Thyroid,Pork [Punch Operator Thyroid] 15 mg PO DAILY 01/16/19 03/02/19 Allergies Allergy/AdvReac Type Severity Reaction Status Date / Time almond Allergy Unknown Verified 03/02/19 14:49 barley Allergy Unknown Verified 03/02/19 14:49 black pepper Allergy Unknown Verified 03/02/19 14:49 Mushroom Allergy Unknown Verified 03/02/19 14:49 shellfish derived [Lobster] Allergy Unknown Verified 03/02/19 14:49 [place] Seed Allergy Unknown Verified 03/02/19 14:49 wheat Allergy Unknown Verified 03/02/19 14:49 Yeast Allergy Unknown Verified 03/02/19 14:49 gluten AdvReac Nausea & Verified 03/02/19 14:49 Vomiting Milk Containing Products AdvReac Abdominal Verified 03/02/19 14:49 [Dairy] Pain NELLIE SEEDS Allergy Unknown Uncoded 07/31/18 21:00 Review of Systems ROS Statement: Those systems with pertinent positive or pertinent negative responses have been documented in the HPI. ROS Other: All systems not noted in ROS Statement are negative. Past Medical History Past Medical History: Eye Disorder, Neurologic Disorder, Syncope Additional Past Medical History / Comment(s): Optic neuritis in past (has caused visual loss bilateral eyes), POTS-hyponatremia and has had past syncopal episode, bouts of weakness and shooting pain down extremities at times-being worked up for MS, MRI showed lesions/LP was negative per pt, possible asthma. History of Any Multi-Drug Resistant Organisms: None Reported Past Surgical History: Adenoidectomy, Coronary Bypass/CABG Additional Past Surgical History / Comment(s): Open heart for congenital defect- ASD, colonoscopy. Past Anesthesia/Blood Transfusion Reactions: No Reported Reaction Past Psychological History: No Psychological Hx Reported Smoking Status: Never smoker Past Alcohol Use History: Rare Past Drug Use History: None Reported - Past Family History Sister(s) History Unknown: Yes Family Medical History: No Reported History Additional Family Medical History / Comment(s): Pt was adopted. Father History Unknown: Yes Additional Family Medical History / Comment(s): Pt was adopted. General Exam - General Exam Comments Initial Comments: General: The patient is awake and alert, in no distress, and does not appear acutely ill. Eye: Pupils are equal, round and reactive to light, extra-ocular movements are intact. No nystagmus. There is normal conjunctiva bilaterally. No signs of icterus. Ears, nose, mouth and throat: There are moist mucous membranes and no oral lesions. Neck: The neck is supple, there is no tenderness or JVD. Cardiovascular: There is a regular rate and rhythm. No murmur, rub or gallop is appreciated. Respiratory: Lungs are clear to auscultation, respirations are non-labored, breath sounds are equal. No wheezes, stridor, rales, or rhonchi. Gastrointestinal: Soft, non-distended, non-tender abdomen without masses or organomegaly noted. There is no rebound or guarding present. Bowel sounds are unremarkable. Musculoskeletal: Normal ROM, no tenderness. Strength 5/5. Sensation intact. Pulses equal bilaterally 2+. Neurological: A&O x 3. CN II-XII intact, There are no obvious motor or sensory deficits. Coordination appears grossly intact. Speech is normal. Skin: Skin is warm and dry and no rashes or lesions are noted. No LE edema. Psychiatric: Cooperative, appropriate mood & affect, normal judgment. Limitations: no limitations Course Vital Signs 03/02/19 03/02/19 03/02/19 14:31 15:10 15:20 Temperature 97.8 F 98.2 F Pulse Rate 83 85 78 Respiratory 18 14 19 Rate Blood Pressure 117/77 112/76 112/76 O2 Sat by Pulse 98 100 100 Oximetry 03/02/19 03/02/19 15:50 16:20 Temperature Pulse Rate 79 Respiratory 16 Rate Blood Pressure 107/74 112/70 O2 Sat by Pulse 100 Oximetry EKG Findings - EKG Comments: EKG Findings:: Ventricular rate 82 bpm, MS interval 132 ms, QRS ration 78 ms, QT/QTC 398/464 ms. Normal sinus rhythm. Prolonged QT nonspecific T wave no ST elevation or depression. Medical Decision Making - Medical Decision Making Well-appearing 28-year-old female. Patient had watery diarrhea this morning. Patient had episode of pre-syncope while having an episode of diarrhea. Patient denies complete syncope or head injury. Patient had recent stress test negat janis. Laboratory studies reveal no significant electrolytes or arrangement. EKG no acute findings. Pt had recent normal stress test within 3 weeks. No chest pain. No dyspnea. No dizziness or neurological complaints. This time feels most likely a vasovagal response, as patient was defecating at the time of onset with differential diagnosis of hypovolemia. Patient was given IV hydration in the emergency department. Patient states she feels better upon reevaluation. At this time feel patient there for discharge with outpatient primary care follow-up in 1-2 days. Return parameters were discussed at length the patient verbalized understanding. EKG was reviewed by attending provider Dr. Bowser case was discussed he is agreeable patient plan of care as well as discharge. - Lab Data Result diagrams: 03/02/19 15:05 03/02/19 15:05 Lab Results 03/02/19 03/02/19 Range/Units 15:05 15:05 WBC 6.2 (3.8-10.6) k/uL RBC 4.00 (3.80-5.40) m/uL Hgb 13.2 (11.4-16.0) gm/dL Hct 38.0 (34.0-46.0) % MCV 95.0 (80.0-100.0) fL MCH 32.9 (25.0-35.0) pg MCHC 34.7 (31.0-37.0) g/dL RDW 13.8 (11.5-15.5) % Plt Count 228 (150-450) k/uL Neutrophils % 57 % Lymphocytes % 31 % Monocytes % 5 % Eosinophils % 3 % Basophils % 0 % Neutrophils # 3.5 (1.3-7.7) k/uL Lymphocytes # 1.9 (1.0-4.8) k/uL Monocytes # 0.3 (0-1.0) k/uL Eosinophils # 0.2 (0-0.7) k/uL Basophils # 0.0 (0-0.2) k/uL Sodium 139 (137-145) mmol/L Potassium 4.2 (3.5-5.1) mmol/L Chloride 109 H (98-107) mmol/L Carbon Dioxide 21 L (22-30) mmol/L Anion Gap 9 mmol/L BUN 12 (7-17) mg/dL Creatinine 0.66 (0.52-1.04) mg/dL Est GFR (CKD-EPI)AfAm >90 (>60 ml/min/1.73 sqM) Est GFR (CKD-EPI)NonAf >90 (>60 ml/min/1.73 sqM) Glucose 102 H (74-99) mg/dL Calcium 9.2 (8.4-10.2) mg/dL Total Bilirubin 0.3 (0.2-1.3) mg/dL AST 16 (14-36) U/L ALT 19 (9-52) U/L Alkaline Phosphatase 51 (38-126) U/L Total Protein 7.1 (6.3-8.2) g/dL Albumin 4.4 (3.5-5.0) g/dL Disposition Clinical Impression: Pre-syncope, Diarrhea Disposition: HOME SELF-CARE Condition: Good Instructions (If sedation given, give patient instructions): Syncope (ED) Additional Instructions: Please use medication as discussed. Please follow-up with family doctor in the next 2 days. Please follow-up with cardiology as previous as scheduled. Please return to emergency room if the symptoms increase or worsen or for any other concerns. Is patient prescribed a controlled substance at d/c from ED?: No Referrals: George De Anda MD [Primary Care Provider] - 1-2 days Time of Disposition: 16:12
[2019-03-02 15:20] VITALS: TEMP 98.2
[2019-03-02 15:31] LABS: ALT 19 U/L (9-52); AST 16 U/L (14-36); Albumin 4.4 g/dL (3.5-5.0); Alkaline Phosphatase 51 U/L (38-126); Anion Gap 9 mmol/L; Blood Urea Nitrogen 12 mg/dL (7-17); Calcium 9.2 mg/dL (8.4-10.2); Carbon Dioxide 21 mmol/L (22-30); Chloride 109 mmol/L (98-107); Glucose 102 mg/dL (74-99); Potassium 4.2 mmol/L (3.5-5.1); Sodium 139 mmol/L (137-145); Total Bilirubin 0.3 mg/dL (0.2-1.3); Total Protein 7.1 g/dL (6.3-8.2)
[2019-03-02 15:48] LABS: Basophils % (A) 0 %; Eosinophils # (A) 0.2 k/uL (0-0.7); Eosinophils % (A) 3 %; HGB 13.2 gm/dL (11.4-16.0); Lymphocytes # (A) 1.9 k/uL (1.0-4.8); Lymphocytes % (A) 31 %; MCH 32.9 pg (25.0-35.0); MCHC 34.7 g/dL (31.0-37.0); Mean Platelet Volume 8.2; Monocytes # (A) 0.3 k/uL (0-1.0); Monocytes % (A) 5 %; Neutrophils # (A) 3.5 k/uL (1.3-7.7); Neutrophils % (A) 57 %; Platelet Count 228 k/uL (150-450); RDW 13.8 % (11.5-15.5); WBC 6.2 k/uL (3.8-10.6)
[2019-03-02 16:31] VITALS: BP 112/70; PULSE 79; RESP 16
== END 2019-03-02 16:38 | disposition home or self-care (01) ==
LOC: EC 14:28
DX: R55 Syncope and collapse (principal); R19.7 Diarrhea, unspecified; R07.9 Chest pain, unspecified; R06.00 Dyspnea, unspecified; R11.0 Nausea; E06.3 Autoimmune thyroiditis; H54.3 Unqualified visual loss, both eyes; Z91.02 Food additives allergy status; Z91.011 Allergy to milk products; Z91.013 Allergy to seafood; Z91.018 Allergy to other foods; Z79.890 Hormone replacement therapy; Z87.74 Personal history of (corrected) congenital malformations of heart and circulatory system; Z95.1 Presence of aortocoronary bypass graft
CPT/HCPCS: 36415; 80053; 85025; 93005; 99285

== ENCOUNTER 2019-04-22 20:59 | Emergency (ER) | payer BC ==
[2019-04-22 21:08] VITALS: RESP 18; TEMP 98.5
--- NOTE | 2019-04-22 21:50 | ED ---
Female Urogenital HPI - General Chief complaint: Vaginal Bleeding Stated complaint: 6 Wks /bleeding Time Seen by Provider: 04/22/19 21:17 Source: patient Mode of arrival: ambulatory Limitations: no limitations - History of Present Illness Initial comments: Ileana 28-year-old female currently 5 weeks 6 days who presents to the emergency department today for evaluation of vaginal bleeding. Patient reports she's had some cramping during this she's contacted her OB Dr. Atkins who is advised her that mild cramping is normal. Patient reports that today the cramping felt a little bit stronger than she noticed some dark vaginal bleeding. She reported that was heavier than normal spotting. Patient reports that she had one episode of this she didn't notice any clots or proximal of conception passing. She reports that since that time cramping has resolved and is now only a 2 in intensity and she is only having mild spotting. Skin the ER for evaluation. Patient has not yet had an ultrasound . - Related Data Home Medications Medication Instructions Recorded Confirmed Thyroid,Pork [Closing Agent Thyroid] 15 mg PO DAILY 01/16/19 03/02/19 Allergies Allergy/AdvReac Type Severity Reaction Status Date / Time almond Allergy Unknown Verified 04/22/19 21:08 barley Allergy Unknown Verified 04/22/19 21:08 black pepper Allergy Unknown Verified 04/22/19 21:08 Mushroom Allergy Unknown Verified 04/22/19 21:08 shellfish derived [Lobster] Allergy Unknown Verified 04/22/19 21:08 [place] Seed Allergy Unknown Verified 04/22/19 21:08 wheat Allergy Unknown Verified 04/22/19 21:08 Yeast Allergy Unknown Verified 04/22/19 21:08 gluten AdvReac Nausea & Verified 04/22/19 21:08 Vomiting Milk Containing Products AdvReac Abdominal Verified 04/22/19 21:08 [Dairy] Pain NELLIE SEEDS Allergy Unknown Uncoded 04/22/19 21:08 Review of Systems ROS Statement: Those systems with pertinent positive or pertinent negative responses have been documented in the HPI. ROS Other: All systems not noted in ROS Statement are negative. Past Medical History Past Medical History: Eye Disorder, Neurologic Disorder, Syncope Additional Past Medical History / Comment(s): Optic neuritis in past (has caused visual loss bilateral eyes), POTS-hyponatremia and has had past syncopal episode, bouts of weakness and shooting pain down extremities at times-being worked up for MS, MRI showed lesions/LP was negative per pt, possible asthma. History of Any Multi-Drug Resistant Organisms: None Reported Past Surgical History: Adenoidectomy, Coronary Bypass/CABG Additional Past Surgical History / Comment(s): Open heart for congenital defect- ASD, colonoscopy. Past Anesthesia/Blood Transfusion Reactions: No Reported Reaction Past Psychological History: No Psychological Hx Reported Smoking Status: Never smoker Past Alcohol Use History: Rare Past Drug Use History: None Reported - Past Family History Sister(s) History Unknown: Yes Family Medical History: No Reported History Additional Family Medical History / Comment(s): Pt was adopted. Father History Unknown: Yes Additional Family Medical History / Comment(s): Pt was adopted. General Exam - General Exam Comments Initial Comments: Physical Exam GENERAL: Patient is well-developed and well-nourished. Patient is nontoxic and well- hydrated and is in no distress. HENT: Normocephalic, Atraumatic. EYES: PERRL, EOMI PULMONARY: Unlabored respirations. No audible rales rhonchi or wheezing was noted. CARDIOVASCULAR: There is a regular rate and rhythm without any murmurs gallops or rubs. ABDOMEN: Soft and nontender with normal bowel sounds. SKIN: Skin is clear with no lesions or rashes and otherwise unremarkable. : Deferred NEUROLOGIC: Patient is alert and oriented x3. Moving all extremities spontaneously MUSCULOSKELETAL: Normal extremities with adequate strength and full range of motion. No lower ex tremity swelling or edema. No calf tenderness. PSYCHIATRIC: Appropriate situational anxiety Limitations: no limitations Course Vital Signs 04/22/19 04/22/19 21:06 23:31 Temperature 98.5 F Pulse Rate 93 77 Respiratory 18 18 Rate Blood Pressure 151/81 115/52 O2 Sat by Pulse 99 96 Oximetry Medical Decision Making - Medical Decision Making Review of medical records reveals the patient's blood type to be O+ there is no indication for repeat typing no indication for RhoGAM Beta hCG was obtained for trending patient reports that her beta hCG on April 11 was 225 Ultrasound was ordered US confirms single intrauterine gestational sac Patient with no further vaginal bleeding on the emergency department cramping she is feeling much better. Urinalysis with blood but no signs of infection. Beta hCG has not resulted likely because it is elevated. At this time patient comfortable with the plan for discharge home. Is encouraged all questions pertaining care were answered patient was encouraged follow-up with her OB as scheduled on the of this month. Return parameters were discussed. Patient discharged home in stable condition. Call the patient back and advised her of her beta hCG level upon results, patient expressed relief. - Lab Data Lab Results 04/22/19 04/22/19 Range/Units 21:45 21:50 HCG, Quant 31053.8 mIU/mL Urine Color Light Yellow Urine Appearance Clear (Clear) Urine pH 6.5 (5.0-8.0) Ur Specific [place] 1.017 (1.001-1.035) Urine Protein Negative (Negative) Urine Glucose (UA) Negative (Negative) Urine Ketones Negative (Negative) Urine Blood Trace H (Negative) Urine Nitrite Negative (Negative) Urine Bilirubin Negative (Negative) Urine Urobilinogen <2.0 (<2.0) mg/dL Ur Leukocyte Esterase Small H (Negative) Urine WBC 2 (0-5) /hpf Ur Squamous Epith Cells 2 (0-4) /hpf Urine Mucus Rare H (None) /hpf Disposition Clinical Impression: Vaginal bleeding before 22 weeks gestation Disposition: HOME SELF-CARE Condition: Stable Instructions (If sedation given, give patient instructions): Threatened Miscarriage (ED) Additional Instructions: The rest including no intercourse until you follow up with her OB. Is patient prescribed a controlled substance at d/c from ED?: No Referrals: George De Anda MD [Primary Care Provider] - 1-2 days
[2019-04-22 22:06] LABS: Appearance,Urine Clear (Clear); Bilirubin,Urine Negative (Negative); Blood,Urine Trace (Negative); Color,Urine Light Yellow; Glucose,Urine (UA) Negative (Negative); Ketones,Urine Negative (Negative); Leukocyte Esterase,Urine Small (Negative); Mucus,Urine Rare /hpf; Nitrite,Urine Negative (Negative); PH, Urine 6.5 (5.0-8.0); Protein,Urine Negative (Negative); Specific Gravity,Urine 1.017 (1.001-1.035); Squamous Epithelial Cell,Urine 2 /hpf (0-4); Urobilinogen,Urine <2.0 mg/dL (<2.0)
--- NOTE | 2019-04-22 23:04 | US ---
EXAM: US , Transvaginal CLINICAL HISTORY: ITS.REASON US Reason: 6wks preg, vaginal bleeding, cramping TECHNIQUE: Real-time transvaginal obstetrical ultrasound of the maternal pelvis and a first trimester with image documentation. Transvaginal imaging was used for better evaluation of the fetus and adnexa. COMPARISON: No relevant prior studies available. FINDINGS: Gestation: Intrauterine gestational sac with a mean sac diameter 1.2 cm corresponding to an estimated gestational age of 5 weeks 2 days. pole not visualized. Yolk sac is normal. Placenta/amniotic fluid: Small subchorionic hematoma. It measures 2.5 x 2.3 x 1.0 cm. Uterus/cervix: Uterus measures 7.1 x 5.2 x 2.7 cm. No myometrial mass. Ovaries: Right ovary measures 2.6 x 1.2 x 1.3 cm. There is a corpus luteal cyst in the left ovary measuring 2.7 cm. No mass. Free fluid: Left ovary measures 3.3 x 2.4 x 2.3 cm. The para-small amount of free fluid in the pelvic cul-de-sac. IMPRESSION: Single intrauterine gestational sac containing a yolk sac. No identifiable pole at this time. Mean sac diameter predicts an estimated gestational age of 5 weeks 2 days. Small subchorionic hematoma.
[2019-04-22 23:32] VITALS: BP 115/52; PULSE 77
== END 2019-04-22 23:31 | disposition home or self-care (01) ==
LOC: EC 20:59
DX: O20.9 Hemorrhage in early pregnancy, unspecified (principal); Z3A.01 Less than 8 weeks gestation of pregnancy; Z79.890 Hormone replacement therapy; Z91.018 Allergy to other foods; Z91.013 Allergy to seafood; Z91.011 Allergy to milk products; Z98.61 Coronary angioplasty status
CPT/HCPCS: 36415; 76801; 76817; 81001; 84702; 99284

== ENCOUNTER 2019-05-01 16:34 | Emergency (ER) | payer BC ==
[2019-05-01 16:46] VITALS: RESP 18
[2019-05-01] MEDS ORDERED: SODIUM CHLORIDE 0.9% 1,000 ML IV ONE (18:04)
[2019-05-01] MEDS ORDERED: ACETAMINOPHEN TAB 325 MG TAB PO STA (18:04)
[2019-05-01 18:37] LABS: Basophils % (A) 0 %; Eosinophils # (A) 0.1 k/uL (0-0.7); Eosinophils % (A) 2 %; HCT 35.9 % (34.0-46.0); HGB 12.6 gm/dL (11.4-16.0); Lymphocytes # (A) 1.4 k/uL (1.0-4.8); Lymphocytes % (A) 20 %; MCH 32.5 pg (25.0-35.0); MCV 92.9 fL (80.0-100.0); Mean Platelet Volume 7.4; Monocytes # (A) 0.4 k/uL (0-1.0); Monocytes % (A) 5 %; Neutrophils # (A) 5.1 k/uL (1.3-7.7); Neutrophils % (A) 72 %; Platelet Count 253 k/uL (150-450); RBC 3.87 m/uL (3.80-5.40); RDW 13.5 % (11.5-15.5); WBC 7.2 k/uL (3.8-10.6)
[2019-05-01 18:37] LABS: Appearance,Urine Clear (Clear); Bilirubin,Urine Negative (Negative); Blood,Urine Moderate (Negative); Color,Urine Colorless; Glucose,Urine (UA) Negative (Negative); Ketones,Urine Negative (Negative); Leukocyte Esterase,Urine Negative (Negative); Nitrite,Urine Negative (Negative); PH, Urine 6.5 (5.0-8.0); Protein,Urine Negative (Negative); RBC,Urine 1 /hpf (0-5); Specific Gravity,Urine 1.002 (1.001-1.035); Urobilinogen,Urine <2.0 mg/dL (<2.0)
[2019-05-01 19:00] LABS: ALT 14 U/L (9-52); AST 15 U/L (14-36); African American GFR (CKD) >90 (>60 ml/min/1.73 sqM); Albumin 4.2 g/dL (3.5-5.0); Alkaline Phosphatase 44 U/L (38-126); Anion Gap 9 mmol/L; Blood Urea Nitrogen 6 mg/dL (7-17); Calcium 9.4 mg/dL (8.4-10.2); Carbon Dioxide 23 mmol/L (22-30); Chloride 107 mmol/L (98-107); Glucose 83 mg/dL (74-99); Potassium 4.1 mmol/L (3.5-5.1); Sodium 139 mmol/L (137-145); Total Bilirubin 0.3 mg/dL (0.2-1.3); Total Protein 6.8 g/dL (6.3-8.2)
--- NOTE | 2019-05-01 19:10 | ED ---
General Adult HPI - General Chief complaint: Vaginal Bleeding Stated complaint: early /vaginal bleeding Time Seen by Provider: 05/01/19 16:48 Source: patient Mode of arrival: ambulatory Limitations: no limitations - History of Present Illness Initial comments: 28-year-old female patient presents to the emergency department today for evaluation of vaginal bleeding. Patient reports she is 7 weeks . She has had a ultrasound confirming intrauterine . Patient states that she has went through one small pad today and had to apply a larger pad. Patient states that she has been having spotting throughout the however to day's bleeding was heavier. She denies any passing of blood clots or tissue. Denies any dizziness or weakness. States she is having some lower abdominal cramping which she has also had throughout this . She is . Physical history of Chase's and is not currently taking any medication for this. She denies any abnormal discharge. Denies any hematuria, dysuria, urinary frequency, urinary urgency. Patient denies any recent rash, fever, chills, shortness breath, chest pain, diarrhea, constipation, back pain, numbness, tingling, dizziness, weakness, headache, visual changes, or any other complaints. - Related Data Home Medications Medication Instructions Recorded Confirmed No Known Home Medications 05/01/19 05/01/19 Allergies Allergy/AdvReac Type Severity Reaction Status Date / Time almond Allergy Unknown Verified 05/01/19 16:56 barley Allergy Unknown Verified 05/01/19 16:56 black pepper Allergy Unknown Verified 05/01/19 16:56 Mushroom Allergy Unknown Verified 05/01/19 16:56 shellfish derived [Lobster] Allergy Unknown Verified 05/01/19 16:56 [place] Seed Allergy Unknown Verified 05/01/19 16:56 wheat Allergy Unknown Verified 05/01/19 16:56 Yeast Allergy Unknown Verified 05/01/19 16:56 gluten AdvReac Nausea & Verified 05/01/19 16:56 Vomiting Milk Containing Products AdvReac Abdominal Verified 05/01/19 16:56 [Dairy] Pain NELLIE SEEDS Allergy Unknown Uncoded 05/01/19 16:46 Review of Systems ROS Statement: Those systems with pertinent positive or pertinent negative responses have been documented in the HPI. ROS Other: All systems not noted in ROS Statement are negative. Past Medical History Past Medical History: Eye Disorder, Neurologic Disorder, Syncope Additional Past Medical History / Comment(s): Optic neuritis in past (has caused visual loss bilateral eyes), POTS-hyponatremia and has had past syncopal ep isode, bouts of weakness and shooting pain down extremities at times-being worked up for MS, MRI showed lesions/LP was negative per pt, possible asthma. History of Any Multi-Drug Resistant Organisms: None Reported Past Surgical History: Adenoidectomy, Coronary Bypass/CABG Additional Past Surgical History / Comment(s): Open heart for congenital defect- ASD, colonoscopy. Past Anesthesia/Blood Transfusion Reactions: No Reported Reaction Past Psychological History: No Psychological Hx Reported Smoking Status: Never smoker Past Alcohol Use History: Rare Past Drug Use History: None Reported - Past Family History Sister(s) History Unknown: Yes Family Medical History: No Reported History Additional Family Medical History / Comment(s): Pt was adopted. Father History Unknown: Yes Additional Family Medical History / Comment(s): Pt was adopted. General Exam Limitations: no limitations General appearance: alert, in no apparent distress, other (Physical well- developed, well-nourished adult female patient in no acute distress. Vital signs upon presentation are temperature 98.2F, pulse 89, respirations 18, blood pressure 118/78, pulse ox 100% on room air.) Eye exam: Present: normal appearance, PERRL, EOMI. Absent: scleral icterus, conjunctival injection, periorbital swelling ENT exam: Present: normal exam, normal oropharynx, mucous membranes moist Respiratory exam: Present: normal lung sounds bilaterally. Absent: respiratory distress, wheezes, rales, rhonchi, stridor Cardiovascular Exam: Present: regular rate, normal rhythm, normal heart sounds. Absent: systolic murmur, diastolic murmur, rubs, gallop, clicks GI/Abdominal exam: Present: soft, normal bowel sounds. Absent: distended, tenderness, guarding, rebound, rigid Neurological exam: Present: alert, oriented X3, CN II-XII intact Psychiatric exam: Present: normal affect, normal mood Skin exam: Present: warm, dry, intact, normal color. Absent: rash Course Vital Signs 05/01/19 16:44 Temperature 98.2 F Pulse Rate 89 Respiratory 18 Rate Blood Pressure 118/78 O2 Sat by Pulse 100 Oximetry Medical Decision Making - Medical Decision Making 28-year-old female patient presents to the emergency department today for evaluation of suprapubic cramping and vaginal bleeding. Patient is approximate 7 weeks . Labs reviewed and did reveal elevated hCG level of 74,000. Urinalysis negative for any evidence of infection. CBC within normal ranges. Ultrasound was obtained of the fetus, shows a viable intrauterine measuring 7 weeks with a small perigestational hemorrhage. Review of records indicates patient's blood type is O+, Rhogam is not indicated. Discuss findi ngs, results with the patient. She is instructed to follow up with her SUPERSONIC ENGINEER for recheck as soon as possible. She does have an appointment tomorrow for ultrasound and nurse visit, she is urged to request sooner appointment with the doctor. Return parameters were discussed in detail. She verbalizes understanding and agrees with this plan. - Lab Data Result diagrams: 05/01/19 18:21 05/01/19 18:21 Lab Results 05/01/19 05/01/19 05/01/19 Range/Units 18:14 18:21 18:21 WBC 7.2 (3.8-10.6) k/uL RBC 3.87 (3.80-5.40) m/uL Hgb 12.6 (11.4-16.0) gm/dL Hct 35.9 (34.0-46.0) % MCV 92.9 (80.0-100.0) fL MCH 32.5 (25.0-35.0) pg MCHC 35.0 (31.0-37.0) g/dL RDW 13.5 (11.5-15.5) % Plt Count 253 (150-450) k/uL Neutrophils % 72 % Lymphocytes % 20 % Monocytes % 5 % Eosinophils % 2 % Basophils % 0 % Neutrophils # 5.1 (1.3-7.7) k/uL Lymphocytes # 1.4 (1.0-4.8) k/uL Monocytes # 0.4 (0-1.0) k/uL Eosinophils # 0.1 (0-0.7) k/uL Basophils # 0.0 (0-0.2) k/uL Sodium 139 (137-145) mmol/L Potassium 4.1 (3.5-5.1) mmol/L Chloride 107 (98-107) mmol/L Carbon Dioxide 23 (22-30) mmol/L Anion Gap 9 mmol/L BUN 6 L (7-17) mg/dL Creatinine 0.53 (0.52-1.04) mg/dL Est GFR (CKD-EPI)AfAm >90 (>60 ml/min/1.73 sqM) Est GFR (CKD-EPI)NonAf >90 (>60 ml/min/1.73 sqM) Glucose 83 (74-99) mg/dL Calcium 9.4 (8.4-10.2) mg/dL Total Bilirubin 0.3 (0.2-1.3) mg/dL AST 15 (14-36) U/L ALT 14 (9-52) U/L Alkaline Phosphatase 44 (38-126) U/L Total Protein 6.8 (6.3-8.2) g/dL Albumin 4.2 (3.5-5.0) g/dL HCG, Quant 87278.9 mIU/mL Urine Color Colorless Urine Appearance Clear (Clear) Urine pH 6.5 (5.0-8.0) Ur Specific [place] 1.002 (1.001-1.035) Urine Protein Negative (Negative) Urine Glucose (UA) Negative (Negative) Urine Ketones Negative (Negative) Urine Blood Moderate H (Negative) Urine Nitrite Negative (Negative) Urine Bilirubin Negative (Negative) Urine Urobilinogen <2.0 (<2.0) mg/dL Ur Leukocyte Esterase Negative (Negative) Urine RBC 1 (0-5) /hpf - Radiology Data Radiology results: report reviewed Obstetrical ultrasound was obtained and reviewed in its entirety. Impression by Dr. Barnard shows probably a small. Gestational hemorrhage. Ultrasound ge stational age is 7 weeks. Disposition Clinical Impression: Subchorionic hemorrhage, Vaginal bleeding during Disposition: HOME SELF-CARE Condition: Good Instructions (If sedation given, give patient instructions): Subchorionic Hemorrhage (ED) Additional Instructions: Follow-up with SUPERSONIC ENGINEER for recheck as soon as possible. Return to the emergency department immediately for any new, worsening, or concerning symptoms. Is patient prescribed a controlled substance at d/c from ED?: No Referrals: George De Anda MD [Primary Care Provider] - 1-2 days Time of Disposition: 20:00
--- NOTE | 2019-05-01 19:37 | US ---
EXAMINATION TYPE: Transabdominal DATE OF EXAM: 05/01/2019 7:21 PM COMPARISON: US CLINICAL HISTORY: Pain. Pelvic pain x 1 day. Spotting x 2 weeks. Heavy bleeding today. EXAM PERFORMED: Transvaginal (TV) and Transabdominal (TA) EXAM MEASUREMENTS: GESTATIONAL AGE / DATING Physician Established: Not yet established Dates by LMP: (7 weeks/1 days) EDC: 12/17/2019 Dates by First Scan: No IUP seen first scan Dates by Current Scan for: ( 7 weeks/0 days) EDC: 12/18/2019 MATERNAL ANATOMY Uterus: 7.8 x 6.9 x 5.3 Right Ovary: 2.6 x 1.5 x 1.5 Left Ovary: 3.3 x 2.1 x 1.9 Post CDS / Adnexa: appears wnl Presence of free fluid: none seen Presence of corpus luteal cyst: Area of mixed echogenicity and peripheral vascularity seen left ovary measurin.1 x 2.0 x 1.6 cm. Presence of subchorionic bleed: Hypoechoic area seen right of gestational sac measurin.2 x 1.3 x 2.1 cm. GESTATION / SURVEY CRL: 0.98 cm (7 weeks/0 days) Yolk Sac (normal less than 6mm): 3 mm ?Wall appears thick/irregular? Heart Rate: 127 bpm Rhythm: Normal IUP: Viable IUP Date of LMP: 03/12/2019 IMPRESSION: There is probably a small perigestational hemorrhage. Ultrasound gestational age is 7 weeks.
[2019-05-01 19:46] LABS: HCG,Quantitative Serum 72646.9 mIU/mL
[2019-05-01 20:19] VITALS: BP 116/79; PULSE 71; TEMP 98.1
== END 2019-05-01 20:20 | disposition home or self-care (01) ==
LOC: EC 16:34
DX: O20.8 Other hemorrhage in early pregnancy (principal); Z3A.01 Less than 8 weeks gestation of pregnancy; Z91.018 Allergy to other foods; Z91.013 Allergy to seafood; Z91.011 Allergy to milk products; Z95.1 Presence of aortocoronary bypass graft
CPT/HCPCS: 36415; 76801; 76817; 80053; 81001; 84702; 85025; 96360; 96361; 99284

== ENCOUNTER 2019-08-05 20:58 | Outpatient (CLI) | payer BC ==
[2019-08-05 21:50] LABS: Amorphous Sediment,Urine Occasional /hpf; Appearance,Urine Cloudy (Clear); Bacteria,Urine Occasional /hpf; Bilirubin,Urine Negative (Negative); Blood,Urine Negative (Negative); Color,Urine Light Yellow; Glucose,Urine (UA) Negative (Negative); Ketones,Urine Negative (Negative); Leukocyte Esterase,Urine Large (Negative); Mucus,Urine Rare /hpf; Nitrite,Urine Negative (Negative); PH, Urine 7.5 (5.0-8.0); Protein,Urine Negative (Negative); Specific Gravity,Urine 1.006 (1.001-1.035); Squamous Epithelial Cell,Urine 18 /hpf (0-4); Transitional Epi Cells,Urine <1 /hpf (0-1); Urobilinogen,Urine <2.0 mg/dL (<2.0)
[2019-08-05 22:01] LABS: Basophils # (A) 0.1 k/uL (0-0.2); Basophils % (A) 1 %; Eosinophils # (A) 0.2 k/uL (0-0.7); Eosinophils % (A) 3 %; HCT 32.4 % (34.0-46.0); HGB 11.3 gm/dL (11.4-16.0); Lymphocytes # (A) 1.3 k/uL (1.0-4.8); Lymphocytes % (A) 17 %; MCH 33.6 pg (25.0-35.0); MCHC 34.8 g/dL (31.0-37.0); MCV 96.6 fL (80.0-100.0); Mean Platelet Volume 7.6; Monocytes # (A) 0.3 k/uL (0-1.0); Monocytes % (A) 4 %; Neutrophils % (A) 75 %; Platelet Count 197 k/uL (150-450); RBC 3.36 m/uL (3.80-5.40)
[2019-08-05 22:10] VITALS: BP 112/69; RESP 16; TEMP 98.2
--- NOTE | 2019-09-05 08:16 | P.MSEPDOC ---
Presenting Problems - Arrival Data Date of Arrival on Unit: 08/05/19 Time of Arrival on Unit: 21:09 Mode of Transport: Ambulatory - Complaint OB-Reason for Admission/Chief Complaint: Decreased Movement, Pain Comment: severe pain with palpation on left side and nagging pain at rest, no movement since 1100 Medical History - Information : 1 Para: 0 Term: 0 : 0 Abortions: Spontaneous or Elective: 0 Number of Living Children: 0 - Gestational Age Gestational Age by RUMA (wks/days): 20 Weeks and 6 Days Review of Systems - Review of Systems Constitutional: No problems Breast: No problems ENT: No problems Cardiovascular: No problems Respiratory: No problems Gastrointestinal: No problems Genitourinary: No problems Musculoskeletal: No problems Neurological: No problems Skin: No problems Vital Signs - Temperature Temperature: 98.2 F Temperature Source: Temporal Artery Scan - Pulse Right Brachial Pulse Assessment Method: Automatic Cuff - Respirations Respiratory Rate: 16 Oxygen Delivery Method: Room Air O2 Sat by Pulse Oximetry: 98 - Blood Pressure Right Arm Blood Pressure: 112/69 Blood Pressure Mean: 83 Blood Pressure Source: Automatic Cuff Medical Screen Scoring (Pre) - Cervical Exam Dilation: Exam Deferred Effacement: Exam Deferred Membranes: Intact - Uterine Contractions Frequency: N/A Duration: N/A Intensity: N/A - Maternal Vital Signs Maternal Temperature: N/A Maternal Blood Pressure: N/A Signs of Preeclampsia: N/A Maternal Respirations: N/A - Maternal Trauma Maternal Trauma: N/A - Assessment - Baby A Baseline FHR: 140 Heart Rate - NICHD Category: Category I (Normal) = 0 Position: N/A Station: N/A - Total Score - Baby A Total Score - Baby A: 0 - Total Score - Baby B Total Score - Baby B: 0 - Total Score - Baby C Total Score - Baby C: 0 - Level of Risk - Baby A Level of Risk - Baby A: Low (0-5) - Level of Risk - Baby B Level of Risk - Baby B: Low (0-5) - Level of Risk - Baby C Level of Risk - Baby C: Low (0-5) Physician Notification (Pre) - Physician Notified Physician Notified Date: 08/05/19 Physician Notified Time: 21:37 Spoke With: Emre New Order Received: Yes (send UA and CBC) Physician Notification (Post) - Physician Notified Physician Notified Date: 08/05/19 Physician Notified Time: 22:13 Physician/Practitioner Notified:: emre - Notification Comment Comment: reported results of UA and. CBC, she states she reviewed the patients ultrasound and it was wnl. She is escribing. antibiotics to pts pharmacy as UA looked like possible UTI, she states pt has also. complained about constipation. Pt states had last BM 2 days ago, orders keep using. mirilax and stool softeners and continue to hydrate. Call [facility] for apt wednesday for. follow up, ok to dc now Disposition - Disposition OB Disposition: Discharge to home, Written follow up instructions reviewed Discharge Date: 08/05/19 Discharge Time: 22:26 I agree with the RN Medical Screening Exam: Yes Risk & Benefit of care provided described in d/c instruction: Yes Diagnosis: PAIN, UNSPECIFIED
== END 2019-08-05 22:26 | disposition home or self-care (01) ==
LOC: FBPOP 20:58
PROVIDERS: ATTEND Obstetrics & Gynecology
DX: O26.892 Other specified pregnancy related conditions, second trimester (principal); Z3A.20 20 weeks gestation of pregnancy
CPT/HCPCS: 81001; 85025; 87086; 99213

== ENCOUNTER 2019-08-29 10:02 | Outpatient (CLI) | payer BC ==
[2019-08-29 10:32] VITALS: BP 111/73; PULSE 90; RESP 16; TEMP 97.8
[2019-08-29 11:45] LABS: Basophils % (A) 0 %; Eosinophils # (A) 0.1 k/uL (0-0.7); Eosinophils % (A) 1 %; HCT 33.5 % (34.0-46.0); HGB 11.7 gm/dL (11.4-16.0); Lymphocytes # (A) 1.2 k/uL (1.0-4.8); Lymphocytes % (A) 14 %; MCH 34.3 pg (25.0-35.0); MCV 98.1 fL (80.0-100.0); Monocytes # (A) 0.3 k/uL (0-1.0); Monocytes % (A) 4 %; Neutrophils # (A) 6.5 k/uL (1.3-7.7); Neutrophils % (A) 79 %; Platelet Count 214 k/uL (150-450); RBC 3.42 m/uL (3.80-5.40); WBC 8.3 k/uL (3.8-10.6)
--- NOTE | 2019-09-03 10:44 | P.MSEPDOC ---
Presenting Problems - Arrival Data Date of Arrival on Unit: 08/29/19 Time of Arrival on Unit: 10:11 Mode of Transport: Ambulatory - Complaint OB-Reason for Admission/Chief Complaint: Other Comment: stated per patient "89 this am coughing blood, no nzusea, puking turned into. blood, went to Dr Barber office, he consulted Dr Gallo and pt was instructed to come. into triage". Medical History - Information : 1 Para: 0 Term: 0 : 0 Abortions: Spontaneous or Elective: 0 Number of Living Children: 0 - Gestational Age Gestational Age by RUMA (wks/days): 24 Weeks and 2 Days - History Comment: subchormionic hemorrhage in begining of - has resolved at this time Review of Systems - Review of Systems Constitutional: No problems Breast: No problems ENT: No problems Cardiovascular: Irregular heartbeat Respiratory: No problems Gastrointestinal: No problems Genitourinary: No problems Musculoskeletal: No problems Neurological: No problems Skin: No problems Comment: had ASD as a child- has a hx of irregular heart rate Vital Signs - Temperature Temperature: 97.8 F Temperature Source: Oral - Pulse Pulse Oximetery Pulse Rate: 90 Pulse Assessment Method: Automatic Cuff - Respirations Respiratory Rate: 16 Oxygen Delivery Method: Room Air O2 Sat by Pulse Oximetry: 99 - Blood Pressure Right Arm Blood Pressure: 111/73 Blood Pressure Mean: 85 Blood Pressure Source: Automatic Cuff Medical Screen Scoring (Pre) - Cervical Exam Dilation: Exam Deferred Effacement: Exam Deferred Membranes: Intact - Uterine Contractions Frequency: N/A Duration: N/A Intensity: N/A - Maternal Vital Signs Maternal Temperature: N/A Maternal Blood Pressure: N/A Signs of Preeclampsia: N/A Maternal Respirations: N/A - Maternal Trauma Maternal Trauma: N/A - Assessment - Baby A Baseline FHR: 150 Heart Rate - NICHD Category: Category I (Normal) = 0 - Total Score - Baby A Total Score - Baby A: 0 - Total Score - Baby B Total Score - Baby B: 0 - Total Score - Baby C Total Score - Baby C: 0 - Level of Risk - Baby A Level of Risk - Baby A: Low (0-5) - Level of Risk - Baby B Level of Risk - Baby B: Low (0-5) - Level of Risk - Baby C Level of Risk - Baby C: Low (0-5) - Pain Assessment Pain Scale Used: Numeric (1 - 10) Pain Intensity: 0 Physician Notification (Pre) - Physician Notified Physician Notified Date: 08/29/19 Physician Notified Time: 11:40 Physician/Practitioner Notifed:: Dr Gallo New Order Received: Yes - Notification Comment Comment: Report called to Dr Gallo- inquire if pt has been having heartburn/ref lux. symptoms, if pt is having symptoms have take pepcid/protonix OTC as directed at least. once at day, CBC ordered. If CBC WNL may discharge home and have patient follow-up in. office tomorrow. Disposition - Disposition OB Disposition: Discharge to home, Written follow up instructions reviewed Discharge Date: 08/29/19 Discharge Time: 12:00 I agree with the RN Medical Screening Exam: Yes Risk & Benefit of care provided described in d/c instruction: Yes Diagnosis: VOMITING OF , UNSPECIFIED
== END 2019-08-29 12:00 | disposition home or self-care (01) ==
LOC: FBPOP 10:02
PROVIDERS: ATTEND Obstetrics & Gynecology Obstetrics
DX: O21.9 Vomiting of pregnancy, unspecified (principal); Z3A.24 24 weeks gestation of pregnancy
CPT/HCPCS: 85025; 99213

== ENCOUNTER 2019-10-03 00:40 | Outpatient (CLI) | payer BC ==
[2019-10-03 01:34] VITALS: BP 130/78; PULSE 89; RESP 16; TEMP 97.2
--- NOTE | 2019-11-17 07:45 | P.MSEPDOC ---
Presenting Problems - Arrival Data Date of Arrival on Unit: 10/03/19 Time of Arrival on Unit: 00:40 Mode of Transport: Wheelchair - Complaint OB-Reason for Admission/Chief Complaint: Pain Medical History - Information : 1 Para: 0 Term: 0 : 0 Abortions: Spontaneous or Elective: 0 Number of Living Children: 0 - Gestational Age Gestational Age by RUMA (wks/days): 29 Weeks and 2 Days - History Comment: Patient presents with pain in the left upper quadrant for the last 3 days, states the pain is worse when she gets up, moves, or walks. Patient states she is also experiencing abdominal tightening, but unable to determine at what frequency possible contractions are occurring Review of Systems - Review of Systems Constitutional: No problems Breast: No problems ENT: No problems Cardiovascular: No problems Respiratory: No problems Gastrointestinal: No problems Genitourinary: No problems Musculoskeletal: No problems Neurological: No problems Skin: No problems Vital Signs - Temperature Temperature: 97.2 F Temperature Source: Temporal Artery Scan - Pulse Pulse Oximetery Pulse Rate: 89 Pulse Assessment Method: Pulse Oximetry - Respirations Respiratory Rate: 16 Oxygen Delivery Method: Room Air - Blood Pressure Sitting Blood Pressure: 130/78 Blood Pressure Mean: 95 Blood Pressure Source: Automatic Cuff Medical Screen Scoring (Pre) - Cervical Exam Dilation: 0 cm = 0 Effacement: Exam Deferred Membranes: Intact - Uterine Contractions Frequency: N/A Duration: N/A Intensity: N/A - Maternal Vital Signs Maternal Temperature: N/A Maternal Blood Pressure: N/A Signs of Preeclampsia: N/A Maternal Respirations: N/A - Maternal Trauma Maternal Trauma: N/A - Assessment - Baby A Baseline FHR: 130 - Total Score - Baby A Total Score - Baby A: 0 - Total Score - Baby B Total Score - Baby B: 0 - Total Score - Baby C Total Score - Baby C: 0 - Level of Risk - Baby A Level of Risk - Baby A: Low (0-5) - Level of Risk - Baby B Level of Risk - Baby B: Low (0-5) - Level of Risk - Baby C Level of Risk - Baby C: Low (0-5) Physician Notification (Pre) - Physician Notified Physician Notified Date: 10/03/19 Physician Notified Time: 01:00 New Order Received: Yes - Notification Comment Comment: Orders given to check cervix and obtain a reactive NST if no contractions okay to discharge home for patient to follow up with Dr. Gallo in the office today. Disposition - Disposition OB Disposition: Physician follow up in office, Discharge to home, Written follow up instructions reviewed Discharge Date: 10/03/19 Discharge Time: 01:27 I agree with the RN Medical Screening Exam: Yes Risk & Benefit of care provided described in d/c instruction: Yes Diagnosis: FALSE LABOR BEFORE 37 COMPLETED WEEKS OF GEST, THIRD TRI
== END 2019-10-03 01:27 | disposition home or self-care (01) ==
LOC: FBPOP 00:40
PROVIDERS: ATTEND Obstetrics & Gynecology
DX: O47.03 False labor before 37 completed weeks of gestation, third trimester (principal); Z3A.29 29 weeks gestation of pregnancy
CPT/HCPCS: 59025; 99213

== ENCOUNTER 2019-10-20 22:55 | Observation (INO) | payer BC ==
[2019-10-20] MEDS ORDERED: ONDANSETRON 4 MG/2 ML VIAL IVP STA (23:45)
[2019-10-21] MEDS ORDERED: BISACODYL 10 MG SUPP RECTAL STA (00:02)
[2019-10-21 00:03] LABS: Amorphous Sediment,Urine Rare /hpf; Appearance,Urine Cloudy (Clear); Bacteria,Urine Rare /hpf; Bilirubin,Urine Negative (Negative); Blood,Urine Negative (Negative); Color,Urine Light Yellow; Glucose,Urine (UA) Negative (Negative); Ketones,Urine Negative (Negative); Leukocyte Esterase,Urine Small (Negative); Mucus,Urine Rare /hpf; Nitrite,Urine Negative (Negative); Protein,Urine Negative (Negative); RBC,Urine 1 /hpf (0-5); Specific Gravity,Urine 1.008 (1.001-1.035); Squamous Epithelial Cell,Urine 2 /hpf (0-4); Urobilinogen,Urine <2.0 mg/dL (<2.0)
[2019-10-21] MEDS ORDERED: ACETAMINOPHEN TAB 500 MG TAB PO PRN (01:23)
[2019-10-21] MEDS ORDERED: SENNOSIDES 8.6 MG TAB PO STA (01:23)
[2019-10-21] MEDS ORDERED: LACTATED RINGERS 1,000 ML IV SCH (01:30)
[2019-10-21 01:56] VITALS: RESP 18
[2019-10-21 02:16] VITALS: BP 113/75; PULSE 93; TEMP 97.9
[2019-10-21] MEDS: LACTATED RINGERS 1,000 ML IV SCH ×3 (08:11→08:12)
--- NOTE | 2019-10-21 08:40 | P.HPOB ---
History of Present Illness H&P Date: 10/21/19 Chief Complaint: IUP 31 weeks, nausea/vomitting/constipation This is a pleasant 28-year-old 1 para 0 at 31-5/7 weeks , edc 12/17/2019, that presents to labor and delivery with complaints of continued nausea vomiting and constipation. Patient states she went about 5 hours without being able to keep anything down. She notes in addition it has been about 5 days since she's unable to have a bowel movement, she feels increasing rectal pressure and discomfort with straining. She has struggled with constipation throughout the and was previously taking Colace with relief of symptoms. She notes good movement denies vaginal bleeding or contractions. Review of Systems Constitutional: Denies chills, Denies fatigue, Denies fever Ears, nose, mouth and throat: Denies headache Cardiovascular: Reports leg edema Respiratory: Denies dyspnea Gastrointestinal: Reports constipation, Reports nausea, Reports vomiting, Denies diarrhea Genitourinary: Reports Past Medical History Past Medical History: Eye Disorder, Neurologic Disorder, Syncope Additional Past Medical History / Comment(s): Optic neuritis in past (has caused visual loss bilateral eyes), POTS-hyponatremia and has had past syncopal episode, bouts of weakness and shooting pain down extremities at times-being worked up for MS, MRI showed lesions/LP was negative per pt, possible asthma. History of Any Multi-Drug Resistant Organisms: None Reported Past Surgical History: Adenoidectomy, Coronary Bypass/CABG Additional Past Surgical History / Comment(s): Open heart for congenital defect- ASD, colonoscopy. Past Anesthesia/Blood Transfusion Reactions: No Reported Reaction Past Psychological History: No Psychological Hx Reported Additional Psychological History / Comment(s): Pt resides with her fiancee. She uses a cane and has in the past used a walker during her "flare ups". She drives. Smoking Status: Never smoker Past Alcohol Use History: Rare Past Drug Use History: None Reported - Past Family History Sister(s) History Unknown: Yes Family Medical History: No Reported History Additional Family Medical History / Comment(s): Pt was adopted. Father History Unknown: Yes Additional Family Medical History / Comment(s): Pt was adopted. Medications and Allergies Home Medications Medication Instructions Recorded Confirmed Type Pnv,Calcium 72/Iron/Folic Acid 1 each PO DAILY 08/05/19 10/21/19 History [ Plus Tablet] Allergies Allergy/AdvReac Type Severity Reaction Status Date / Time acetaminophen Allergy Mild Nausea & Verified 10/20/19 23:45 [From Tylenol-Codeine #3] Vomiting codeine Allergy Mild Nausea & Verified 10/20/19 23:45 [From Tylenol-Codeine #3] Vomiting almond Allergy Unknown Verified 10/20/19 23:45 barley Allergy Unknown Verified 10/20/19 23:45 black pepper Allergy Unknown Verified 10/20/19 23:45 Mushroom Allergy Unknown Verified 10/20/19 23:45 shellfish derived [Lobster] Allergy Unknown Verified 10/20/19 23:45 [place] Seed Allergy Unknown Verified 10/20/19 23:45 wheat Allergy Unknown Verified 10/20/19 23:45 Yeast Allergy Unknown Verified 10/20/19 23:45 gluten AdvReac Nausea & Verified 10/20/19 23:45 Vomiting Milk Containing Products AdvReac Abdominal Verified 10/20/19 23:45 [Dairy] Pain NELLIE SEEDS Allergy Unknown Uncoded 10/20/19 23:45 Exam Osteopathic Statement: *. No significant issues noted on an osteopathic structural exam other than those noted in the History and Physical/Consult. 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 heart tones are reassuring for gestational age and she is not darinel. Results Abnormal Lab Results - Last 24 Hours (Table) 10/20/19 Range/Units 23:50 Urine Appearance Cloudy H (Clear) Ur Leukocyte Esterase Small H (Negative) Amorphous Sediment Rare H (None) /hpf Urine Bacteria Rare H (None) /hpf Urine Mucus Rare H (None) /hpf Assessment and Plan (1) 31 to 32 weeks gestation of Current Visit: Yes Status: Acute Code(s): NDT9153 - SNOMED Code(s): 862528722 (2) Nausea & vomiting Current Visit: Yes Status: Acute Code(s): R11.2 - NAUSEA WITH VOMITING, UNSPECIFIED SNOMED Code(s): 65954346 (3) Constipation Current Visit: Yes Status: Acute Code(s): K59.00 - CONSTIPATION, UNSPECIFIED SNOMED Code(s): 37409189 Plan: Patient was observed overnight for IV hydration secondary to nausea and vomiting and given senna S, Dulcolax suppository an attempt to have a bowel movement. Patient has had 3 bowel movements since admission and is feeling much improved this morning. She states she is ready for discharge home. Discharge instructions are reviewed with patient I would like to see her back in the office next week she is instructed to start senna s at bedtime for constipation symptoms. Encouraged increased by mouth hydration in addition
== END 2019-10-21 09:30 | disposition home or self-care (01) ==
LOC: FBPOP 22:55 → 4FBP 10-21 01:20
PROVIDERS: ADMIT Obstetrics & Gynecology Obstetrics; ATTEND Obstetrics & Gynecology Obstetrics
DX: O21.2 Late vomiting of pregnancy (principal); O99.613 Diseases of the digestive system complicating pregnancy, third trimester; K59.00 Constipation, unspecified; O99.413 Diseases of the circulatory system complicating pregnancy, third trimester; I49.8 Other specified cardiac arrhythmias; O26.893 Other specified pregnancy related conditions, third trimester; R53.1 Weakness; M79.605 Pain in left leg; M79.604 Pain in right leg; Z3A.31 31 weeks gestation of pregnancy; Z86.69 Personal history of other diseases of the nervous system and sense organs; Z86.39 Personal history of other endocrine, nutritional and metabolic disease; Z90.89 Acquired absence of other organs; Z87.74 Personal history of (corrected) congenital malformations of heart and circulatory system; Z95.1 Presence of aortocoronary bypass graft; Z99.89 Dependence on other enabling machines and devices; Z88.5 Allergy status to narcotic agent; Z91.018 Allergy to other foods; Z91.013 Allergy to seafood; Z91.011 Allergy to milk products
CPT/HCPCS: 99214; 96361 ×2; 96374; 81001; G0378; J2405; 59025; 96367; 96375

== ENCOUNTER 2019-10-24 17:34 | Outpatient (CLI) | payer BC ==
[2019-10-24] MEDS ORDERED: LACTATED RINGERS 1,000 ML IV SCH (18:30)
[2019-10-24 19:10] LABS: Appearance,Urine Cloudy (Clear); Bacteria,Urine Occasional /hpf; Bilirubin,Urine Negative (Negative); Blood,Urine Negative (Negative); Color,Urine Yellow; Glucose,Urine (UA) Negative (Negative); Ketones,Urine 3+ (Negative); Leukocyte Esterase,Urine Large (Negative); Mucus,Urine Many /hpf; Nitrite,Urine Negative (Negative); Protein,Urine Trace (Negative); RBC,Urine 2 /hpf (0-5); Specific Gravity,Urine 1.019 (1.001-1.035); Squamous Epithelial Cell,Urine 8 /hpf (0-4); Urobilinogen,Urine <2.0 mg/dL (<2.0); WBC,Urine 18 /hpf (0-5)
[2019-10-24 19:21] VITALS: BP 118/73; PULSE 89; RESP 16; TEMP 98.4
--- NOTE | 2019-11-04 11:22 | P.MSEPDOC ---
Presenting Problems - Arrival Data Date of Arrival on Unit: 10/24/19 Time of Arrival on Unit: 17:34 Mode of Transport: Ambulatory - Complaint OB-Reason for Admission/Chief Complaint: Other Medical History - Information : 1 Para: 0 Term: 0 : 0 Abortions: Spontaneous or Elective: 0 Number of Living Children: 0 - Gestational Age Gestational Age by RUMA (wks/days): 32 Weeks and 2 Days - History Comment: subchorionic bleed-resolved Review of Systems - Review of Systems Constitutional: No problems Breast: No problems ENT: No problems Cardiovascular: No problems Respiratory: No problems Gastrointestinal: Constipation, Pain Genitourinary: No problems Musculoskeletal: No problems Neurological: No problems Skin: No problems Vital Signs - Temperature Temperature: 98.4 F Temperature Source: Oral - Pulse Right Sitting Pulse Rate: 89 Pulse Assessment Method: Automatic Cuff - Respirations Respiratory Rate: 16 O2 Sat by Pulse Oximetry: 99 - Blood Pressure Right Arm Blood Pressure: 118/73 Blood Pressure Mean: 88 Medical Screen Scoring (Pre) - Cervical Exam Dilation: Exam Deferred Effacement: Exam Deferred - Uterine Contractions Frequency: N/A - Maternal Vital Signs Maternal Temperature: N/A Maternal Blood Pressure: N/A Signs of Preeclampsia: N/A Maternal Respirations: N/A - Maternal Trauma Maternal Trauma: N/A - Assessment - Baby A Baseline FHR: 145 Heart Rate - NICHD Category: Category I (Normal) = 0 NST: Reactive Position: N/A Station: N/A - Total Score - Baby A Total Score - Baby A: 0 - Total Score - Baby B Total Score - Baby B: 0 - Total Score - Baby C Total Score - Baby C: 0 - Level of Risk - Baby A Level of Risk - Baby A: Low (0-5) - Level of Risk - Baby B Level of Risk - Baby B: Low (0-5) - Level of Risk - Baby C Level of Risk - Baby C: Low (0-5) Physician Notification (Pre) - Physician Notified Physician Notified Date: 10/24/19 Physician Notified Time: 18:30 New Order Received: Yes (urinalysis, and IV fluids) Medical Screen Scoring (Post) - Cervical Exam Dilation: Exam Deferred Effacement: Exam Deferred Membranes: Intact - Uterine Contractions Frequency: N/A Duration: N/A Intensity: N/A - Maternal Vital Signs Maternal Temperature: N/A Maternal Blood Pressure: N/A Signs of Preeclampsia: N/A Maternal Respirations: N/A - Pain Assessment Pain Scale Used: Numeric (1 - 10) Pain Intensity: 0 - Maternal Trauma Maternal Trauma: N/A - Assessment - Baby A Heart Rate: 145 Heart Rate - NICHD Category: Category I (Normal) = 0 NST: Reactive Position: N/A Station: N/A - Total Score Total Score - Baby A: 0 Total Score - Baby B: 0 Total Score - Baby C: 0 - Post Treatment Level of Risk Post Treatment Level of Risk - Baby A: Low (0-5) Post Treatment Level of Risk - Baby B: Low (0-5) Post Treatment Level of Risk - Baby C: Low (0-5) Physician Notification (Post) - Physician Notified Physician Notified Date: 10/24/19 Physician Notified Time: 19:41 Physician/Practitioner Notified:: Dr. Wright Spoke With: Kyle New Order Received: Yes - Notification Comment Comment: RN spoke with Dr. Wright. Reported results of UA and that after speaking. with patient she states that she would like "something to help her have a bowel. movement". Dr. Wright states that patient may be discharged after receiving another. bag of IV fluid. Patient is to be instructed to take Miralax daily, fleets enema. according to package instructions, and dulcolax suppositories at home. Patient. encouraged to increase fluid intake at home. Disposition - Disposition OB Disposition: Discharge to home Discharge Date: 10/24/19 Discharge Time: 21:30 I agree with the RN Medical Screening Exam: Yes Risk & Benefit of care provided described in d/c instruction: Yes Diagnosis: DEHYDRATION
== END 2019-10-24 21:30 | disposition home or self-care (01) ==
LOC: FBPOP 17:34
PROVIDERS: ATTEND Obstetrics & Gynecology
DX: O99.89 Other specified diseases and conditions complicating pregnancy, childbirth and the puerperium (principal); E86.0 Dehydration; Z3A.32 32 weeks gestation of pregnancy
CPT/HCPCS: 59025; 81001; 96360; 96361; 99214

== ENCOUNTER 2019-12-16 02:20 | Outpatient (CLI) | payer BC, OTHER ==
[2019-12-16 03:51] VITALS: BP 120/79; PULSE 95; RESP 16; TEMP 97.6
--- NOTE | 2020-01-02 13:06 | P.MSEPDOC ---
Presenting Problems - Arrival Data Date of Arrival on Unit: 12/16/19 Time of Arrival on Unit: 02:22 Mode of Transport: Ambulatory - Complaint OB-Reason for Admission/Chief Complaint: Possible Onset of Labor Medical History - Information : 1 Para: 0 Number of Living Children: 0 - Gestational Age Gestational Age by RUMA (wks/days): 39 Weeks and 6 Days Review of Systems - Review of Systems Constitutional: No problems Breast: No problems ENT: No problems Cardiovascular: No problems Respiratory: No problems Gastrointestinal: No problems Genitourinary: No problems Musculoskeletal: No problems Neurological: No problems Skin: No problems Vital Signs - Temperature Temperature: 97.6 F Temperature Source: Temporal Artery Scan - Pulse Right Sitting Brachial Pulse Rate: 95 Pulse Assessment Method: Automatic Cuff - Respirations Respiratory Rate: 16 Oxygen Delivery Method: Room Air O2 Sat by Pulse Oximetry: 99 - Blood Pressure Right Arm Sitting Blood Pressure: 120/79 Blood Pressure Mean: 92 Blood Pressure Source: Automatic Cuff Medical Screen Scoring (Pre) - Cervical Exam Dilation: 1-3 cm = 1 Effacement: More than 50% = 2 Membranes: Intact - Uterine Contractions Frequency: > 5 minutes apart = 1 Duration: > 40 seconds = 2 Intensity: N/A - Maternal Vital Signs Maternal Temperature: N/A Maternal Blood Pressure: N/A Signs of Preeclampsia: N/A Maternal Respirations: N/A - Maternal Trauma Maternal Trauma: N/A - Assessment - Baby A Baseline FHR: 135 Heart Rate - NICHD Category: Category I (Normal) = 0 NST: Reactive Position: N/A Station: N/A - Total Score - Baby A Total Score - Baby A: 6 - Total Score - Baby B Total Score - Baby B: 6 - Total Score - Baby C Total Score - Baby C: 6 - Level of Risk - Baby A Level of Risk - Baby A: Medium (6-9) - Level of Risk - Baby B Level of Risk - Baby B: Medium (6-9) - Level of Risk - Baby C Level of Risk - Baby C: Medium (6-9) Physician Notification (Pre) - Physician Notified Physician Notified Date: 12/16/19 Physician Notified Time: 03:38 New Order Received: Yes (discharge pt home) Disposition - Disposition OB Disposition: Physician follow up in office, Discharge to home Discharge Date: 12/16/19 Discharge Time: 03:46 I agree with the RN Medical Screening Exam: Yes Risk & Benefit of care provided described in d/c instruction: Yes Diagnosis: FALSE LABOR AT OR AFTER 37 COMPLETED WEEKS OF GESTATION
== END 2019-12-16 03:46 | disposition home or self-care (01) ==
LOC: FBPOP 02:20
PROVIDERS: ATTEND Obstetrics & Gynecology
DX: O47.1 False labor at or after 37 completed weeks of gestation (principal); Z3A.39 39 weeks gestation of pregnancy
CPT/HCPCS: 59025; 99213

== ENCOUNTER 2019-12-16 21:45 | Outpatient (CLI) | payer BC, OTHER ==
[2019-12-16 23:38] VITALS: BP 120/80; PULSE 108; RESP 16; TEMP 97
--- NOTE | 2020-01-02 13:05 | P.MSEPDOC ---
Presenting Problems - Arrival Data Date of Arrival on Unit: 12/16/19 Time of Arrival on Unit: 21:45 Mode of Transport: Ambulatory - Complaint OB-Reason for Admission/Chief Complaint: Possible Onset of Labor Medical History - Information : 1 Para: 0 Term: 0 : 0 Abortions: Spontaneous or Elective: 0 Number of Living Children: 0 - Gestational Age Gestational Age by RUMA (wks/days): 39 Weeks and 6 Days Review of Systems - Review of Systems Constitutional: No problems Breast: No problems ENT: No problems Cardiovascular: No problems Respiratory: No problems Gastrointestinal: No problems Genitourinary: No problems Musculoskeletal: No problems Neurological: No problems Skin: No problems Vital Signs - Temperature Temperature: 97.0 F Temperature Source: Temporal Artery Scan - Pulse Right Pulse Rate: 108 Pulse Assessment Method: Automatic Cuff - Respirations Respiratory Rate: 16 Oxygen Delivery Method: Room Air - Blood Pressure Right Arm Blood Pressure: 120/80 Blood Pressure Mean: 93 Blood Pressure Source: Automatic Cuff Medical Screen Scoring (Pre) - Cervical Exam Dilation: 1-3 cm = 1 Effacement: More than 50% = 2 Membranes: Intact - Uterine Contractions Frequency: > 5 minutes apart = 1 Duration: N/A Intensity: N/A - Maternal Vital Signs Maternal Temperature: N/A Maternal Blood Pressure: N/A Signs of Preeclampsia: N/A Maternal Respirations: N/A - Maternal Trauma Maternal Trauma: N/A - Assessment - Baby A Baseline FHR: 160 Heart Rate - NICHD Category: Category I (Normal) = 0 NST: Reactive Position: N/A Station: N/A - Total Score - Baby A Total Score - Baby A: 4 - Total Score - Baby B Total Score - Baby B: 4 - Total Score - Baby C Total Score - Baby C: 4 - Level of Risk - Baby A Level of Risk - Baby A: Low (0-5) - Level of Risk - Baby B Level of Risk - Baby B: Low (0-5) - Level of Risk - Baby C Level of Risk - Baby C: Low (0-5) Physician Notification (Pre) - Physician Notified Physician Notified Date: 12/16/19 Physician Notified Time: 23:05 New Order Received: Yes - Notification Comment Comment: Pt to be discharged home with instructions on latent phase of labor. Disposition - Disposition OB Disposition: Physician follow up in office, Discharge to home Discharge Date: 12/16/19 Discharge Time: 23:16 I agree with the RN Medical Screening Exam: Yes Risk & Benefit of care provided described in d/c instruction: Yes Diagnosis: FALSE LABOR AT OR AFTER 37 COMPLETED WEEKS OF GESTATION
== END 2019-12-16 23:15 | disposition home or self-care (01) ==
LOC: FBPOP 21:45
PROVIDERS: ATTEND Obstetrics & Gynecology
DX: O47.1 False labor at or after 37 completed weeks of gestation (principal); Z3A.39 39 weeks gestation of pregnancy
CPT/HCPCS: 59025; 99213

== ENCOUNTER 2019-12-17 08:04 | Inpatient (IN) | payer BC, OTHER ==
[2019-12-17] MEDS ORDERED: OXYTOCIN 10 UNIT/ML 1 ML VIAL IM PRN (09:01)
[2019-12-17] MEDS ORDERED: METHYLERGONOVINE 0.2 MG/ML 1 ML AMP IM PRN (09:01)
[2019-12-17] MEDS ORDERED: LIDOCAINE 0.5% (PF) 5 MG/ML (50 ML SDV) SQ PRN (09:01)
[2019-12-17] MEDS ORDERED: TERBUTALINE 1 MG/ML VIAL SQ PRN (09:01)
[2019-12-17] MEDS ORDERED: CARBOPROST TROMETHAMINE 250 MCG/ML 1 ML AMP IM PRN (09:01)
[2019-12-17] MEDS ORDERED: OXYTOCIN 30 UNITS/500 ML NS 30 UNIT in SALINE 1 500ML.BAG IV SCH (09:15)
[2019-12-17] MEDS: LACTATED RINGERS 1,000 ML IV SCH ×2 (09:35→11:01)
[2019-12-17 09:37] LABS: Basophils # (A) 0.1 k/uL (0-0.2); Basophils % (A) 0 %; Eosinophils # (A) 0.2 k/uL (0-0.7); Eosinophils % (A) 1 %; HCT 35.9 % (34.0-46.0); HGB 12.2 gm/dL (11.4-16.0); Lymphocytes # (A) 1.1 k/uL (1.0-4.8); Lymphocytes % (A) 4 %; MCH 32.5 pg (25.0-35.0); MCHC 33.9 g/dL (31.0-37.0); Mean Platelet Volume 9.6; Monocytes # (A) 0.9 k/uL (0-1.0); Monocytes % (A) 4 %; Neutrophils # (A) 23.2 k/uL (1.3-7.7); Neutrophils % (A) 90 %; Platelet Count 221 k/uL (150-450); RBC 3.74 m/uL (3.80-5.40); RDW 13.5 % (11.5-15.5); WBC 25.6 k/uL (3.8-10.6)
--- NOTE | 2019-12-17 09:37 | P.HPOB ---
History of Present Illness H&P Date: 12/17/19 This is a 28-year-old white female 1 para 0 EDC 2-20 at 40 weeks gestation. Patient presents this morning in active spontaneous labor. Fetus is been active throughout the . She has had multiple visits to the triage area through the weekend, and states she is mentally and physically exhausted. She denies vaginal bleeding or fluid leakage. Past medical history is significant for thyroid disorder, enlarged heart, and benign heart murmur. Past surgical history appendectomy, arterial septal defect repair. ALLERGIES include codeine, reaction undocumented. Dairy, gluten, ragweed. Family history patient is adopted, she has a sister with kidney failure and cerebral palsy. Social history patient is , she is never been a smoker, she is employed locally, she denies alcohol or drug use. history is significant for blood type O+, rubella status immune. VDRL testing, hepatitis B surface antigen, HIV testing, GC and chlamydia cultures all negative. Initial urine culture positive, repeat culture after antibiotics negative. Group B strep cultures negative. One-hour Glucola said to be within normal limits. On exam patient is 5 foot 2 inches, 167 pounds, vital signs are stable and patient is afebrile. The general physical exam is within normal limits. Chest is clear in all kang. Extremities reveal trace edema. Cervix is 6 cm dilated, 90% effaced, -2 station, vertex presentation. Artificial amniorrhexis reveals clear fluid. Uterine contractions are occurring approximately every 5-6 minutes apart of moderate to severe intensity. heart rate in the 140s with frequent accelerations, consistent with reactive NST. Impression: 40 week intrauterine , active spontaneous labor. All signs reassuring. Plan: We will proceed with admission and fluid hydration. Patient is requesting epidural and this is been requested, anesthesia will attend to patient is soon as labs have returned. I will check a sodium level on admission as well as patient states she has a history of hyponatremia. Close maternal and surveillance. Anticipate normal spontaneous vaginal delivery. Review of Systems Constitutional: Reports as per HPI Past Medical History Past Medical History: Eye Disorder, Neurologic Disorder, Syncope Additional Past Medical History / Comment(s): Optic neuritis in past (has caused visual loss bilateral eyes), POTS-hyponatremia and has had past syncopal episode, bouts of weakness and shooting pain down extremities at times-being worked up for MS, MRI showed lesions/LP was negative per pt, possible asthma. History of Any Multi-Drug Resistant Organisms: None Reported Past Surgical History: Adenoidectomy, Coronary Bypass/CABG Additional Past Surgical History / Comment(s): Open heart for congenital defect- ASD, colonoscopy. Past Anesthesia/Blood Transfusion Reactions: No Reported Reaction Past Psychological History: No Psychological Hx Reported Additional Psychological History / Comment(s): Pt resides with her cristinee. She uses a cane and has in the past used a walker during her "flare ups". She drives. Smoking Status: Never smoker Past Alcohol Use History: Rare Past Drug Use History: None Reported - Past Family History Sister(s) History Unknown: Yes Family Medical History: No Reported History Additional Family Medical History / Comment(s): Pt was adopted. Father History Unknown: Yes Additional Family Medical History / Comment(s): Pt was adopted. Medications and Allergies Home Medications Medication Instructions Recorded Confirmed Type Pnv,Calcium 72/Iron/Folic Acid 1 each PO DAILY 08/05/19 12/17/19 History [ Plus Tablet] Allergies Allergy/AdvReac Type Severity Reaction Status Date / Time acetaminophen Allergy Mild Nausea & Verified 12/17/19 08:19 [From Tylenol-Codeine #3] Vomiting codeine Allergy Mild Nausea & Verified 12/17/19 08:19 [From Tylenol-Codeine #3] Vomiting almond Allergy Unknown Verified 12/17/19 08:19 barley Allergy Unknown Verified 12/17/19 08:19 black pepper Allergy Unknown Verified 12/17/19 08:19 Mushroom Allergy Unknown Verified 12/17/19 08:19 shellfish derived [Lobster] Allergy Unknown Verified 12/17/19 08:19 [place] Seed Allergy Unknown Verified 12/17/19 08:19 wheat Allergy Unknown Verified 12/17/19 08:19 Yeast Allergy Unknown Verified 12/17/19 08:19 gluten AdvReac Nausea & Verified 12/16/19 02:36 Vomiting Milk Containing Products AdvReac Abdominal Verified 12/16/19 02:36 [Dairy] Pain NELLIE SEEDS Allergy Unknown Uncoded 12/16/19 02:36 Exam Vital Signs Temp Pulse Resp BP Pulse Ox 12/17/19 09:00 97.6 F 96 16 118/70 97 Intake and Output 02/0112/17/19 12/17/19 22:59 06:59 14:59 Other: Weight 73.936 kg See dictation under HPI please Assessment and Plan Assessment: 40 week intrauterine , active labor. All signs reassuring. Plan: Close maternal and surveillance. Analgesia options discussed, patient requesting epidural, anesthesia team aware anticipate normal spontaneous vaginal delivery. Time with Patient: Greater than 30
[2019-12-17] MEDS ORDERED: SODIUM CHLORIDE 0.9% 100 ML BAG ONE (10:15)
[2019-12-17] MEDS ORDERED: fentaNYL (PF) 50 MCG/ML 5 ML AMP ONE (10:15)
[2019-12-17] MEDS ORDERED: ROPIVACAINE 5MG/ML 20ML VIAL ONE (10:15)
[2019-12-17] MEDS ORDERED: ZOLPIDEM 5 MG TAB PO PRN (17:06)
[2019-12-17] MEDS ORDERED: diphenhydrAMINE 25 MG CAP PO PRN (17:06)
[2019-12-17] MEDS ORDERED: ACETAMINOPHEN TAB 325 MG TAB PO PRN (17:06)
[2019-12-17] MEDS ORDERED: BENZOCAINE/MENTHOL SPRAY 1 GM/SPRAY AEROSOL TOPICAL PRN (17:06)
[2019-12-17] MEDS ORDERED: LANOLIN CREAM 5 GM TUBE TOPICAL PRN (17:06)
[2019-12-17] MEDS ORDERED: WITCH HAZEL 1 EACH MED..PAD TOPICAL PRN (17:06)
[2019-12-17] MEDS ORDERED: HYDROCORTISONE 2.5% RECTAL CREAM 30 GM TUBE RECTAL PRN (17:06)
[2019-12-17] MEDS ORDERED: SIMETHICONE 80 MG CHEWABLE PO PRN (17:06)
[2019-12-17] MEDS ORDERED: diphenhydrAMINE 50 MG CAP PO PRN (17:06)
[2019-12-17] MEDS ORDERED: diphenhydrAMINE 50 MG/ML 1 ML VIAL IVP PRN ×2 (17:06)
--- NOTE | 2019-12-17 17:06 | P.PROBDLV ---
Vaginal Delivery Note - . Vaginal Delivery Note: This is a 28-year-old white female 1 para 0 EDC 12/17/2039 weeks gestation. Patient presented earlier today in spontaneous active labor. [place]pee strep cultures negative, rubella status immune, blood type O positive. Please see admitting H&P for details. Artificial amniorrhexis revealed clear fluid. Epidural was placed per her request. Oxytocin was started and titrated per hospital protocol. heart tones were reassuring throughout the first and second stages of labor. She became completely dilated at 1612 and began the second stage of labor at that time. With excellent expulsive efforts infant's head descended and crowned. The perineal body was prepped and draped in usual sterile fashion. 's head delivered occiput anterior and she restituted accordingly. The was no nuchal cord. The left or anterior shoulder was delivered easily from underneath the pubic symphysis at which time the oropharynx, nasopharynx, and external nares were bulb suctioned on the perineal body. Patient was officially delivered a liveborn female infant at 1645 hrs. Umbilical cord was doubly clamped and ligated, she was handed to waiting nurses for evaluation where scores of 9 and 9 at one and 5 minutes respectively were given. The uterus is then massaged. Placenta delivered spontaneously, it is inspected and noted to be intact with trivascular cord at 1647 hrs. The cervix, vagina, perineum, periurethral, and perirectal areas are all now carefully inspected. There is a midline second-degree spontaneous laceration noted. It is repaired in the usual fashion using Rapide suture. All sponge needle and enhancement counts are correct at the end of the procedure. Patient and her family are allowed to begin the bonding experience in the LDR. Total estimated blood loss 400 mL's.
[2019-12-17] MEDS ORDERED: OXYTOCIN 20 UNITS/1000 ML NS 1,000 ML IV SCH (17:15)
[2019-12-17] MEDS: IBUPROFEN 600 MG TAB PO PRN (17:17)
[2019-12-17] MEDS: SENNOSIDES-DOCUSATE SODIUM 1 EACH TAB PO SCH (23:56)
[2019-12-18] MEDS: IBUPROFEN 600 MG TAB PO PRN ×4 (01:12→22:08)
[2019-12-18 06:46] LABS: Basophils % (A) 0 %; Eosinophils # (A) 0.1 k/uL (0-0.7); Eosinophils % (A) 0 %; HCT 26.7 % (34.0-46.0); Lymphocytes # (A) 1.4 k/uL (1.0-4.8); Lymphocytes % (A) 7 %; MCH 32.4 pg (25.0-35.0); MCHC 33.5 g/dL (31.0-37.0); MCV 96.7 fL (80.0-100.0); Mean Platelet Volume 9.9; Monocytes # (A) 0.6 k/uL (0-1.0); Monocytes % (A) 3 %; Neutrophils # (A) 16.9 k/uL (1.3-7.7); Neutrophils % (A) 88 %; Platelet Count 180 k/uL (150-450); RBC 2.76 m/uL (3.80-5.40); RDW 13.4 % (11.5-15.5); WBC 19.2 k/uL (3.8-10.6)
--- NOTE | 2019-12-18 09:00 | P.PNOBGVD ---
Subjective - Subjective Principal diagnosis: PPD 1 Interval history: Patient is doing well . She is ambulating voiding without difficulty. She is tolerating a regular diet without nausea or vomiting. She states her lochia is moderate. She is breast-feeding with some difficulty. Patient reports: Reports appetite normal, Reports voiding normally, Reports pain well controlled, Reports ambulating normally : doing well, nursing well Objective - Latest Vital Signs Latest vital signs: Vital Signs Temp Pulse Resp BP Pulse Ox 12/18/19 03:44 98.7 F 90 14 106/67 97 12/17/19 23:54 98.7 F 96 16 110/65 99 12/17/19 19:03 98.8 F 99 16 119/73 12/17/19 18:33 104 H 16 110/58 12/17/19 18:03 88 18 100/59 12/17/19 17:48 89 18 102/54 12/17/19 17:33 100 16 133/68 12/17/19 17:18 100 20 132/63 12/17/19 17:03 99.2 F 107 H 18 148/72 12/17/19 09:35 97.6 F 96 16 118/70 97 12/17/19 09:00 97.6 F 96 16 118/70 97 Intake and Output 12/17/19 12/18/19 12/18/19 22:59 06:59 14:59 Other: # Voids 2 - Exam Extremities: Present: normal Abdomen: Present: normal appearance, soft Uterus: Present: normal, firm - Labs Labs: Abnormal Lab Results - Last 24 Hours (Table) 12/17/19 12/17/19 12/18/19 Range/Units 08:52 15:08 06:25 WBC 25.6 H 19.2 H (3.8-10.6) k/uL RBC 3.74 L 2.76 L (3.80-5.40) m/uL Hgb 9.0 L D (11.4-16.0) gm/dL Hct 26.7 L (34.0-46.0) % Neutrophils # 23.2 H 16.9 H (1.3-7.7) k/uL Sodium 134 L (137-145) mmol/L Carbon Dioxide 21 L (22-30) mmol/L Assessment and Plan (1) Term Current Visit: Yes Status: Acute Code(s): Z34.90 - ENCNTR FOR SUPRVSN OF NORMAL , UNSP, UNSP TRIMESTER SNOMED Code(s): 46768595 (2) Active labor Current Visit: Yes Status: Acute Code(s): FOF1149 - SNOMED Code(s): 834075834 (3) Status post vaginal delivery Current Visit: Yes Status: Acute Code(s): QKF8760 - SNOMED Code(s): 618166382 Plan: Patient is doing well. She is without concerns this morning. She is awaiting artist consultant for help with breast-feeding. Anticipate discharge home tomorrow a.m.
[2019-12-18] MEDS: SENNOSIDES-DOCUSATE SODIUM 1 EACH TAB PO SCH ×2 (18:20→22:08)
[2019-12-19] MEDS: IBUPROFEN 600 MG TAB PO PRN ×2 (06:34→13:33)
[2019-12-19 07:50] VITALS: BP 99/61; PULSE 81; RESP 16; TEMP 98.7
--- NOTE | 2019-12-19 08:30 | P.DS ---
Providers Date of admission: 12/17/19 08:34 Expected date of discharge: 12/19/19 Attending physician: Suzie Gallo Primary care physician: Stated None - Discharge Diagnosis(es) (1) Term Current Visit: Yes Status: Acute (2) Active labor Current Visit: Yes Status: Acute (3) Status post vaginal delivery Current Visit: Yes Status: Acute Hospital Course: This is a 28-year-old 1 para 0 at 40-0/7 weeks that presented to labor and delivery on 12/17/19 with complaints of regular painful contractions. Patient denied vaginal bleeding or leakage of fluid. Patient had been receiving routine care which has been essentially uncomplicated. On initial physical exam patient was noted to be 6 cm dilated and is admitted to labor and delivery. Patient did request epidural soon after admission. Patient progressed to complete began pushing and had a normal spontaneous vaginal delivery at 1645, female infant delivered with Apgars of 9 and 9 at one and 5 minutes respectively. She did sustain a midline second-degree vaginal laceration which was repaired in the usual fashion. Patient's course has been uneventful. This day #2 she is a billing and voiding without difficulty. She is tolerating a regular diet without nausea or vomiting. Her lochia is minimal. She is ready for discharge home. Patient Condition at Discharge: Good Plan - Discharge Summary New Discharge Prescriptions: No Action Pnv,Calcium 72/Iron/Folic Acid [ Plus Tablet] 1 each PO DAILY Discharge Medication List Pnv,Calcium 72/Iron/Folic Acid [ Plus Tablet] 1 each PO DAILY 08/05/19 [History] Follow up Appointment(s)/Referral(s): Suzie Gallo DO [Doctor of Osteopathic Medicine] - 4 Weeks Patient Instructions/Handouts: Vaginal Delivery (DC), Vaginal Delivery (GEN) Discharge Disposition: HOME SELF-CARE
[2019-12-19] MEDS: SENNOSIDES-DOCUSATE SODIUM 1 EACH TAB PO SCH (12:47)
== END 2019-12-19 14:40 | disposition home or self-care (01) | DRG 806 ==
LOC: FBPOP 08:04 → 4FBP 08:34
PROVIDERS: ADMIT Obstetrics & Gynecology; ATTEND Obstetrics & Gynecology Obstetrics
PROC: 00HU33Z Insertion of Infusion Device into Spinal Canal, Percutaneous Approach (ICD-10-PCS; principal; 2019-12-17)
PROC: 10E0XZZ Delivery of Products of Conception, External Approach (ICD-10-PCS; principal; 2019-12-17)
PROC: 3E0R3BZ Introduction of Anesthetic Agent into Spinal Canal, Percutaneous Approach (ICD-10-PCS; principal; 2019-12-17)
PROC: 0KQM0ZZ Repair Perineum Muscle, Open Approach (ICD-10-PCS; principal; 2019-12-17)
DX: O70.1 Second degree perineal laceration during delivery (principal); E87.1 Hypo-osmolality and hyponatremia; Z37.0 Single live birth; K21.9 Gastro-esophageal reflux disease without esophagitis; O99.62 Diseases of the digestive system complicating childbirth; H54.3 Unqualified visual loss, both eyes; Z3A.40 40 weeks gestation of pregnancy; Z79.899 Other long term (current) drug therapy; Z86.39 Personal history of other endocrine, nutritional and metabolic disease; Z90.49 Acquired absence of other specified parts of digestive tract; Z98.890 Other specified postprocedural states; Z87.74 Personal history of (corrected) congenital malformations of heart and circulatory system; Z95.1 Presence of aortocoronary bypass graft; Z91.011 Allergy to milk products; Z88.5 Allergy status to narcotic agent; Z91.018 Allergy to other foods; Z91.013 Allergy to seafood; Z91.048 Other nonmedicinal substance allergy status; Z82.0 Family history of epilepsy and other diseases of the nervous system; Z84.1 Family history of disorders of kidney and ureter
CPT/HCPCS: 80051; 85025; 86850; 86900; 86901; 99213

== ENCOUNTER → 2020-01-09 | Outpatient (CLI) | payer BC, OTHER | END | disposition home or self-care (01) | LOC: PROCWHC3 14:34 | PROVIDERS: ATTEND Nurse Practitioner Family | DX: R05 Cough (principal) | CPT/HCPCS: 87502 ==

== ENCOUNTER 2020-06-25 17:31 | Emergency (ER) | payer OTHER ==
[2020-06-25 17:51] VITALS: RESP 18
[2020-06-25] MEDS ORDERED: SODIUM CHLORIDE 0.9% 1,000 ML IV STA (18:20)
--- NOTE | 2020-06-25 18:21 | ED ---
Abdominal Pain HPI - General Chief Complaint: Abdominal Pain Stated Complaint: abd pain Time Seen by Provider: 06/25/20 17:53 Source: patient Mode of arrival: ambulatory Limitations: no limitations - History of Present Illness Initial Comments: Patient is a 29-year-old female presenting to the emergency room with a chief complaint of abdominal pain. Patient reports a history of constipation since she was a child. Patient also reports history of celiac disease. Reports multiple hospitalizations for constipation. Patient reports she has seen a gas troenterologist for history of rectal bleeds and was told that this is going to be her baseline. Patient reports she has hematochezia about once a month and this is her baseline. Patient reports her last few days she developed a left- sided abdominal pain that appears to be exacerbated with forward flexion. She denies any nausea vomiting diarrhea. Denies chest pain or shortness of breath. Denies previous abdominal surgeries. States typically she has a bowel movement every 3 days. States she has not had Hematochezia for at least 2 weeks. She denies any night sweats fevers or chills. denies urinary or vaginal symptoms. - Related Data Home Medications Medication Instructions Recorded Confirmed Pnv,Calcium 72/Iron/Folic Acid 1 each PO DAILY 08/05/19 12/17/19 [ Plus Tablet] Allergies Allergy/AdvReac Type Severity Reaction Status Date / Time acetaminophen Allergy Mild Nausea & Verified 06/25/20 17:51 [From Tylenol-Codeine #3] Vomiting codeine Allergy Mild Nausea & Verified 06/25/20 17:51 [From Tylenol-Codeine #3] Vomiting almond Allergy Unknown Verified 06/25/20 17:51 barley Allergy Unknown Verified 06/25/20 17:51 black pepper Allergy Unknown Verified 06/25/20 17:51 Mushroom Allergy Unknown Verified 06/25/20 17:51 shellfish derived [Lobster] Allergy Unknown Verified 06/25/20 17:51 [place]ine[place] Seed Allergy Unknown Verified 06/25/20 17:51 wheat Allergy Unknown Verified 06/25/20 17:51 Yeast Allergy Unknown Verified 06/25/20 17:51 gluten AdvReac Nausea & Verified 06/25/20 17:51 Vomiting Milk Containing Products AdvReac Abdominal Verified 06/25/20 17:51 [Dairy] Pain NELLIE SEEDS Allergy Unknown Uncoded 06/25/20 17:51 Review of Systems ROS Statement: Those systems with pertinent positive or pertinent negative responses have been documented in the HPI. ROS Other: All systems not noted in ROS Statement are negative. Past Medical History Past Medical History: Eye Disorder, Neurologic Disorder, Syncope Additional Past Medical History / Comment(s): Optic neuritis in past (has caused visual loss bilateral eyes), POTS-hyponatremia and has had past syncopal episode, bouts of weakness and shooting pain down extremities at times-being worked up for MS, MRI showed lesions/LP was negative per pt, possible asthma. History of Any Multi-Drug Resistant Organisms: None Reported Past Surgical History: Adenoidectomy, Coronary Bypass/CABG Additional Past Surgical History / Comment(s): Open heart for congenital defect- ASD, colonoscopy. Past Anesthesia/Blood Transfusion Reactions: No Reported Reaction Past Psychological History: No Psychological Hx Reported Past Alcohol Use History: Rare Past Drug Use History: None Reported - Past Family History Sister(s) History Unknown: Yes Family Medical History: No Reported History Additional Family Medical History / Comment(s): Pt was adopted. Father History Unknown: Yes Additional Family Medical History / Comment(s): Pt was adopted. General Exam Limitations: no limitations General appearance: alert, in no apparent distress Head exam: Present: atraumatic, normocephalic, normal inspection Eye exam: Present: normal appearance, PERRL, EOMI Pupils: Present: normal accommodation ENT exam: Present: normal exam, normal oropharynx, mucous membranes moist, TM's normal bilaterally, normal external ear exam Neck exam: Present: normal inspection, full ROM. Absent: tenderness Respiratory exam: Present: normal lung sounds bilaterally. Absent: respiratory distress, wheezes, rales Cardiovascular Exam: Present: regular rate, normal rhythm, normal heart sounds GI/Abdominal exam: Present: soft, tenderness (Left upper quadrant, left lower quadrant abdominal pain). Absent: distended, guarding, rebound, rigid Extremities exam: Present: normal inspection, full ROM. Absent: tenderness Back exam: Present: normal inspection, full ROM. Absent: tenderness, CVA tenderness (R), CVA tenderness (L) Neurological exam: Present: alert, oriented X3 Psychiatric exam: Present: normal affect, normal mood Skin exam: Present: warm, dry, intact, normal color Course Vital Signs 06/25/20 06/25/20 17:49 19:26 Temperature 98.2 F 98.0 F Pulse Rate 90 68 Respiratory 18 18 Rate Blood Pressure 125/83 110/71 O2 Sat by Pulse 97 Oximetry Medical Decision Making - Medical Decision Making Patient is 29-year-old female presenting to the emergency room with a chief complaint of abdominal pain. Exam patient has left lower quadrant left lower quadrant abdominal pain. No nausea vomiting diarrhea. Vitals are stable. No hematuria or hematochezia or melena. CBC CMP unremarkable. UA reveals +2 ketones. Patient was given IV fluids and no analgesics. Her pain is minimal at rest. Patient does have chronic abdominal pain along with history of celiac disease and constipation. Patient has not had a colonoscopy or an EGD ever since she was a young child. I offered CT imaging to patient, she declined. States that she would rather see a GI specialist for having an upper and lower GI scope before getting CT with contrast. Patient is concerned because she is breast-feeding. Strict return parameters were thoroughly discussed the patient is worsening agreeable. Case discussed with physician. - Lab Data Result diagrams: 06/25/20 18:32 06/25/20 18:32 Lab Results 06/25/20 06/25/20 06/25/20 Range/Units 18:32 18:32 18:32 WBC 5.4 (3.8-10.6) k/uL RBC 4.36 (3.80-5.40) m/uL Hgb 13.6 (11.4-16.0) gm/dL Hct 41.6 (34.0-46.0) % MCV 95.3 (80.0-100.0) fL MCH 31.3 (25.0-35.0) pg MCHC 32.8 (31.0-37.0) g/dL RDW 12.3 (11.5-15.5) % Plt Count 294 (150-450) k/uL Neutrophils % 53 % Lymphocytes % 34 % Monocytes % 6 % Eosinophils % 4 % Basophils % 0 % Neutrophils # 2.9 (1.3-7.7) k/uL Lymphocytes # 1.9 (1.0-4.8) k/uL Monocytes # 0.3 (0-1.0) k/uL Eosinophils # 0.2 (0-0.7) k/uL Basophils # 0.0 (0-0.2) k/uL Sodium (137-145) mmol/L Potassium (3.5-5.1) mmol/L Chloride (98-107) mmol/L Carbon Dioxide (22-30) mmol/L Anion Gap mmol/L BUN (7-17) mg/dL Creatinine (0.52-1.04) mg/dL Est GFR (CKD-EPI)AfAm (>60 ml/min/1.73 sqM) Est GFR (CKD-EPI)NonAf (>60 ml/min/1.73 sqM) Glucose (74-99) mg/dL Calcium (8.4-10.2) mg/dL Total Bilirubin (0.2-1.3) mg/dL AST (14-36) U/L ALT (4-34) U/L Alkaline Phosphatase (38-126) U/L Total Protein (6.3-8.2) g/dL Albumin (3.5-5.0) g/dL Lipase (23-300) U/L Urine Color Light Yellow Urine Appearance Clear (Clear) Urine pH 5.5 (5.0-8.0) Ur Specific [place] 1.012 (1.001-1.035) Urine Protein Negative (Negative) Urine Glucose (UA) Negative (Negative) Urine Ketones 2+ H (Negative) Urine Blood Negative (Negative) Urine Nitrite Negative (Negative) Urine Bilirubin Negative (Negative) Urine Urobilinogen <2.0 (<2.0) mg/dL Ur Leukocyte Esterase Small H (Negative) Urine RBC 1 (0-5) /hpf Urine WBC 5 (0-5) /hpf Ur Squamous Epith Cells <1 (0-4) /hpf Urine Bacteria Rare H (None) /hpf Urine Mucus Occasional H (None) /hpf Urine HCG, Qual Not Detected (Not Detectd) 06/25/20 Range/Units 18:32 WBC (3.8-10.6) k/uL RBC (3.80-5.40) m/uL Hgb (11.4-16.0) gm/dL Hct (34.0-46.0) % MCV (80.0-100.0) fL MCH (25.0-35.0) pg MCHC (31.0-37.0) g/dL RDW (11.5-15.5) % Plt Count (150-450) k/uL Neutrophils % % Lymphocytes % % Monocytes % % Eosinophils % % Basophils % % Neutrophils # (1.3-7.7) k/uL Lymphocytes # (1.0-4.8) k/uL Monocytes # (0-1.0) k/uL Eosinophils # (0-0.7) k/uL Basophils # (0-0.2) k/uL Sodium 139 (137-145) mmol/L Potassium 3.9 (3.5-5.1) mmol/L Chloride 105 (98-107) mmol/L Carbon Dioxide 23 (22-30) mmol/L Anion Gap 11 mmol/L BUN 11 (7-17) mg/dL Creatinine 0.75 (0.52-1.04) mg/dL Est GFR (CKD-EPI)AfAm >90 (>60 ml/min/1.73 sqM) Est GFR (CKD-EPI)NonAf >90 (>60 ml/min/1.73 sqM) Glucose 86 (74-99) mg/dL Calcium 9.7 (8.4-10.2) mg/dL Total Bilirubin 0.7 (0.2-1.3) mg/dL AST 21 (14-36) U/L ALT 14 (4-34) U/L Alkaline Phosphatase 85 (38-126) U/L Total Protein 7.7 (6.3-8.2) g/dL Albumin 4.9 (3.5-5.0) g/dL Lipase 120 (23-300) U/L Urine Color Urine Appearance (Clear) Urine pH (5.0-8.0) Ur Specific [place] (1.001-1.035) Urine Protein (Negative) Urine Glucose (UA) (Negative) Urine Ketones (Negative) Urine Blood (Negative) Urine Nitrite (Negative) Urine Bilirubin (Negative) Urine Urobilinogen (<2.0) mg/dL Ur Leukocyte Esterase (Negative) Urine RBC (0-5) /hpf Urine WBC (0-5) /hpf Ur Squamous Epith Cells (0-4) /hpf Urine Bacteria (None) /hpf Urine Mucus (None) /hpf Urine HCG, Qual (Not Detectd) Disposition Clinical Impression: Abdominal pain Disposition: HOME SELF-CARE Condition: Stable Instructions (If sedation given, give patient instructions): Abdominal Pain (ED) Additional Instructions: Follow-up with a GI specialist. Return to emergency department if symptoms worsen. Is patient prescribed a controlled substance at d/c from ED?: No Referrals: George De Anda MD [Primary Care Provider] - 1-2 days Time of Disposition: 19:29
[2020-06-25 18:49] LABS: Basophils % (A) 0 %; Eosinophils # (A) 0.2 k/uL (0-0.7); Eosinophils % (A) 4 %; HCT 41.6 % (34.0-46.0); HGB 13.6 gm/dL (11.4-16.0); Lymphocytes # (A) 1.9 k/uL (1.0-4.8); Lymphocytes % (A) 34 %; MCH 31.3 pg (25.0-35.0); MCHC 32.8 g/dL (31.0-37.0); MCV 95.3 fL (80.0-100.0); Mean Platelet Volume 8.6; Monocytes # (A) 0.3 k/uL (0-1.0); Monocytes % (A) 6 %; Neutrophils # (A) 2.9 k/uL (1.3-7.7); Neutrophils % (A) 53 %; Platelet Count 294 k/uL (150-450); RBC 4.36 m/uL (3.80-5.40); RDW 12.3 % (11.5-15.5); WBC 5.4 k/uL (3.8-10.6)
[2020-06-25 18:53] LABS: ALT 14 U/L (4-34); AST 21 U/L (14-36); African American GFR (CKD) >90 (>60 ml/min/1.73 sqM); Albumin 4.9 g/dL (3.5-5.0); Alkaline Phosphatase 85 U/L (38-126); Anion Gap 11 mmol/L; Blood Urea Nitrogen 11 mg/dL (7-17); Calcium 9.7 mg/dL (8.4-10.2); Carbon Dioxide 23 mmol/L (22-30); Chloride 105 mmol/L (98-107); Glucose 86 mg/dL (74-99); Non-African American GFR(CKD) >90 (>60 ml/min/1.73 sqM); Potassium 3.9 mmol/L (3.5-5.1); Sodium 139 mmol/L (137-145); Total Bilirubin 0.7 mg/dL (0.2-1.3); Total Protein 7.7 g/dL (6.3-8.2)
[2020-06-25 18:54] LABS: Appearance,Urine Clear (Clear); Bacteria,Urine Rare /hpf; Bilirubin,Urine Negative (Negative); Blood,Urine Negative (Negative); Color,Urine Light Yellow; Glucose,Urine (UA) Negative (Negative); Ketones,Urine 2+ (Negative); Leukocyte Esterase,Urine Small (Negative); Mucus,Urine Occasional /hpf; Nitrite,Urine Negative (Negative); PH, Urine 5.5 (5.0-8.0); Protein,Urine Negative (Negative); RBC,Urine 1 /hpf (0-5); Specific Gravity,Urine 1.012 (1.001-1.035); Squamous Epithelial Cell,Urine <1 /hpf (0-4); Urobilinogen,Urine <2.0 mg/dL (<2.0); WBC,Urine 5 /hpf (0-5)
[2020-06-25 19:27] VITALS: BP 110/71; PULSE 68; TEMP 98
== END 2020-06-25 19:42 | disposition home or self-care (01) ==
LOC: EC 17:31
DX: R10.32 Left lower quadrant pain (principal); G89.29 Other chronic pain; Z95.1 Presence of aortocoronary bypass graft; Z88.5 Allergy status to narcotic agent; Z88.6 Allergy status to analgesic agent; Z91.018 Allergy to other foods; Z91.013 Allergy to seafood; Z91.011 Allergy to milk products
CPT/HCPCS: 36415; 80053; 81001; 81025; 83690; 85025; 96360; 99284

== ENCOUNTER → 2020-10-02 | Outpatient (CLI) | payer OTHER | END | disposition home or self-care (01) | LOC: LABWHC1 12:40 | PROVIDERS: ATTEND Family Medicine | DX: Z20.828 Contact with and (suspected) exposure to other viral communicable diseases (principal) | CPT/HCPCS: U0003; C9803 ==

== ENCOUNTER 2021-02-23 10:44 | Emergency (ER) | payer OTHER ==
[2021-02-23 11:27] VITALS: TEMP 99.7
--- NOTE | 2021-02-23 12:19 | XR ---
EXAMINATION TYPE: XR chest 2V DATE OF EXAM: 02/23/2021 COMPARISON: 02/01/2017 INDICATION: Short of breath TECHNIQUE: Frontal and lateral views of the chest are obtained. FINDINGS: The heart size is normal. The pulmonary vasculature is normal. Mild infiltrate is at the left base. Findings are nonspecific. Consider atelectasis. Atypical pneumon ia could be considered. Follow up studies can be performed as clinically indicated.. IMPRESSION: 1. Mild left lower lobe atelectasis or atypical pneumonia. Follow-up can be performed as clinically i ndicated.
--- NOTE | 2021-02-23 12:43 | ED ---
SOB HPI - General Chief Complaint: Shortness of Breath Stated Complaint: ERIN, hypertensive, Covid + Source: patient Mode of arrival: ambulatory Limitations: no limitations - History of Present Illness Initial Comments: 30-year-old female who presents to the emergency department with reported shortness of breath, cough and congestion. Patient did test positive for Covid on February 19. States that since then she has had shortness of breath, cough and congestion. She has been coughing so hard that she vomits. States that it's difficult to keep any food in. Denies nausea. No further fevers. She has been using [id number] cold medications for her symptoms without improvement. She denies a history of underlying lung conditions. No concern for . Denies abdominal pain. No diarrhea. No alleviating, lodging facilities attendant modifying factors - Related Data Home Medications Medication Instructions Recorded Confirmed Pnv,Calcium 72/Iron/Folic Acid 1 each PO DAILY 08/05/19 12/17/19 [ Plus Tablet] Previous Rx's Medication Instructions Recorded Ascorbic Acid [Vitamin C] 500 mg PO BID #30 tablet 02/23/21 Ergocalciferol (Vitamin D2) 50 mcg PO DAILY #15 tab 02/23/21 [Vitamin D2 (2000 Iu)] Zinc 50 mg PO BID #30 tablet 02/23/21 Allergies Allergy/AdvReac Type Severity Reaction Status Date / Time acetaminophen Allergy Mild Nausea & Verified 06/25/20 17:51 [From Tylenol-Codeine #3] Vomiting codeine Allergy Mild Nausea & Verified 06/25/20 17:51 [From Tylenol-Codeine #3] Vomiting almond Allergy Unknown Verified 06/25/20 17:51 barley Allergy Unknown Verified 06/25/20 17:51 black pepper Allergy Unknown Verified 06/25/20 17:51 Mushroom Allergy Unknown Verified 06/25/20 17:51 shellfish derived [Lobster] Allergy Unknown Verified 06/25/20 17:51 Mono Seed Allergy Unknown Verified 06/25/20 17:51 wheat Allergy Unknown Verified 06/25/20 17:51 Yeast Allergy Unknown Verified 06/25/20 17:51 gluten AdvReac Nausea & Verified 06/25/20 17:51 Vomiting Milk Containing Products AdvReac Abdominal Verified 06/25/20 17:51 [Dairy] Pain NELLIE SEEDS Allergy Unknown Uncoded 06/25/20 17:51 Review of Systems ROS Statement: Those systems with pertinent positive or pertinent negative responses have been documented in the HPI. ROS Other: All systems not noted in ROS Statement are negative. Past Medical History Past Medical History: Eye Disorder, Neurologic Disorder, Syncope Additional Past Medical History / Comment(s): Optic neuritis in past (has caused visual loss bilateral eyes), POTS-hyponatremia and has had past syncopal episode, bouts of weakness and shooting pain down extremities at times-being worked up for MS, MRI showed lesions/LP was negative per pt, possible asthma. History of Any Multi-Drug Resistant Organisms: None Reported Past Surgical History: Adenoidectomy, Coronary Bypass/CABG Additional Past Surgical History / Comment(s): Open heart for congenital defect- ASD, colonoscopy. Past Anesthesia/Blood Transfusion Reactions: No Reported Reaction Past Psychological History: No Psychological Hx Reported Smoking Status: Never smoker Past Alcohol Use History: Rare Past Drug Use History: None Reported - Past Family History Sister(s) History Unknown: Yes Family Medical History: No Reported History Additional Family Medical History / Comment(s): Pt was adopted. Father History Unknown: Yes Additional Family Medical History / Comment(s): Pt was adopted. General Exam Limitations: no limitations Course Vital Signs 02/23/21 02/23/21 11:23 12:49 Temperature 99.7 F H Pulse Rate 105 H 89 Respiratory 24 22 Rate Blood Pressure 87/57 106/81 O2 Sat by Pulse 93 L 95 Oximetry Medical Decision Making - Medical Decision Making On arrival patient is placed into room 28. Thorough history and physical exam was performed. Patient does maintain saturations of 93% on room air. Chest x- ray demonstrates a mild left lower lobe atelectasis or atypical pneumonia. Patient does not qualify for Bam treatment at this time. I did discuss the diagnosis and treatment options. The patient did agree to vitamin C, vitamin D and zinc as possible treatment options. She is to quarantine until her symptoms improve. Return to the emergency department should she have any new or worsening symptoms to include a pulse ox less than 90%. Patient agreed to this. Given written and verbal discharge instructions and discharged in stable condition Disposition Clinical Impression: COVID-19 Disposition: HOME SELF-CARE Condition: Stable Instructions (If sedation given, give patient instructions): Coronavirus Disease 2019 (COVID-19) Additional Instructions: Please follow up with your PCP in 2-4 days. Quarantine until your symptoms improve. Return to the ED if you have any new or worsening symptoms. Measure your pulse ox. If you have two readings less than 90%, one hour apart, return to the ED. Prescriptions: Ascorbic Acid [Vitamin C] 500 mg PO BID #30 tablet Ergocalciferol (Vitamin D2) [Vitamin D2 (2000 Iu)] 50 mcg PO DAILY #15 tab Zinc 50 mg PO BID #30 tablet Is patient prescribed a controlled substance at d/c from ED?: No Referrals: George De Anda MD [Primary Care Provider] - 1-2 days Time of Disposition: 12:42
[2021-02-23 12:49] VITALS: RESP 22
[2021-02-23 12:50] VITALS: BP 106/81; PULSE 89
== END 2021-02-23 12:50 | disposition home or self-care (01) ==
LOC: EC 10:44
DX: U07.1 COVID-19 (principal)
CPT/HCPCS: 71046; 99285

== ENCOUNTER → 2021-06-27 | Outpatient (CLI) | payer OTHER ==
--- NOTE | 2021-06-27 16:18 | XR ---
EXAMINATION TYPE: XR abdomen complete w decub DATE OF EXAM: 06/27/2021 COMPARISON: None INDICATION: Mucous in stool, bloating TECHNIQUE: Acute abdominal series is performed with supine and upright left lateral decubitus views. FINDINGS: There is a normal bowel gas pattern. No free air is evident. No suspicious air-fluid levels or differ ential air-fluid levels are evident. No mass effect is evident Psoas margins are normal. No organomegaly is present. IMPRESSION: 1. Unremarkable Abdomen
== END | disposition home or self-care (01) ==
LOC: RADXRMAIN 13:58
PROVIDERS: ATTEND Nurse Practitioner
DX: R14.0 Abdominal distension (gaseous) (principal)
CPT/HCPCS: 74021

== ENCOUNTER → 2021-07-03 | Outpatient (CLI) | payer OTHER ==
[2021-07-03 11:13] LABS: Basophils # (A) 0.02 X 10*3/uL (0.00-0.10); Basophils % (A) 0.4 %; Eosinophils # (A) 0.11 X 10*3/uL (0.04-0.35); Eosinophils % (A) 2.4 %; HCT 36.4 % (37.2-46.3); HGB 12.5 g/dL (12.0-15.0); Lymphocytes # (A) 1.38 X 10*3/uL (0.90-5.00); Lymphocytes % (A) 30.2 %; MCH 33.2 pg (27.0-32.0); MCHC 34.3 g/dL (32.0-37.0); MCV 96.8 fL (80.0-97.0); Mean Platelet Volume 11.3 fL (9.5-12.2); Monocytes % (A) 8.8 %; Neutrophils # (A) 2.64 X 10*3/uL (1.80-7.70); Neutrophils % (A) 57.8 %; Platelet Count 219 X 10*3/uL (140-440); RBC 3.76 X 10*6/uL (4.10-5.20); RDW 12.6 % (11.5-14.5); WBC 4.57 X 10*3/uL (4.50-10.00)
[2021-07-03 14:23] LABS: ALT 12 U/L (8-44); AST 15 U/L (13-35); African American GFR (CKD) 114.7 (60.0-200.0); Albumin/Globulin Ratio 1.96 (1.60-3.17); Alkaline Phosphatase 70 U/L (41-126); Amylase 80 U/L (23-121); BUN/Creat Ratio 16.25 Ratio (12.00-20.00); C Reactive Protein <0.4 mg/dL (0.0-0.8); Carbon Dioxide 25.6 mmol/L (21.6-31.8); Chloride 108 mmol/L (96-109); Globulin 2.3 g/dL (1.6-3.3); Glucose 94 mg/dL (70-110); Lipase 41 U/L (14-63); Non-African American GFR(CKD) 98.9 (60.0-200.0); Potassium 4.2 mmol/L (3.5-5.5); Sodium 142 mmol/L (135-145); Total Bilirubin 0.4 mg/dL (0.3-1.2); Total Protein 6.8 g/dL (6.2-8.2)
[2021-07-03 14:39] LABS: Erythrocyte Sedimentation Rate 14 mm/Hr (0-20)
[2021-07-03 15:45] LABS: Gliadin AB IgA, Deaminated NEGATIVE (NEGATIVE); Gliadin AB IgA, Unit 0.7 U/mL; Gliadin AB IgG, Deaminated NEGATIVE (NEGATIVE)
== END | disposition home or self-care (01) ==
LOC: LABWHC1 07:29
PROVIDERS: ATTEND Nurse Practitioner
DX: R10.9 Unspecified abdominal pain (principal); R19.5 Other fecal abnormalities
CPT/HCPCS: 36415; 80053; 82150; 83516; 83690; 85025; 85652; 86140

== ENCOUNTER 2022-07-27 10:08 | Emergency (ER) | payer BC ==
[2022-07-27 10:34] VITALS: RESP 20; TEMP 98.1
[2022-07-27] MEDS ORDERED: PANTOPRAZOLE 40 MG/10 ML VIAL IVP STA (12:02)
[2022-07-27] MEDS ORDERED: SODIUM CHLORIDE 0.9% 1,000 ML IV STA (12:02)
[2022-07-27] MEDS ORDERED: traMADol 50 MG STARTER PACK 3 TAB BTL PO STA (12:33)
[2022-07-27 12:52] LABS: Basophils % (A) 1 %; Eosinophils # (A) 0.3 k/uL (0-0.7); Eosinophils % (A) 7 %; HCT 40.1 % (34.0-46.0); HGB 13.7 gm/dL (11.4-16.0); Lymphocytes # (A) 1.3 k/uL (1.0-4.8); Lymphocytes % (A) 32 %; MCH 33.1 pg (25.0-35.0); MCHC 34.3 g/dL (31.0-37.0); MCV 96.5 fL (80.0-100.0); Mean Platelet Volume 8.6; Monocytes # (A) 0.3 k/uL (0-1.0); Monocytes % (A) 8 %; Neutrophils % (A) 50 %; Platelet Count 239 k/uL (150-450); RBC 4.15 m/uL (3.80-5.40); RDW 12.2 % (11.5-15.5); WBC 4.1 k/uL (3.8-10.6)
[2022-07-27 13:00] LABS: Appearance,Urine Clear (Clear); Bilirubin,Urine Negative (Negative); Blood,Urine Negative (Negative); Color,Urine Colorless; Glucose,Urine (UA) Negative (Negative); Ketones,Urine Negative (Negative); Leukocyte Esterase,Urine Negative (Negative); Nitrite,Urine Negative (Negative); PH, Urine 7.5 (5.0-8.0); Protein,Urine Negative (Negative); Specific Gravity,Urine 1.007 (1.001-1.035); Urobilinogen,Urine <2.0 mg/dL (<2.0)
[2022-07-27 13:05] LABS: INR 0.9 (<1.2); Partial Thromboplastin Time 25.4 sec (22.0-30.0); Prothrombin Time 10.4 sec (9.0-12.0)
[2022-07-27 13:08] LABS: ALT 11 U/L (4-34); AST 17 U/L (14-36); African American GFR (CKD) >90 (>60 ml/min/1.73 sqM); Albumin 4.8 g/dL (3.5-5.0); Alkaline Phosphatase 56 U/L (38-126); Anion Gap 11 mmol/L; Blood Urea Nitrogen 11 mg/dL (7-17); Calcium 9.2 mg/dL (8.4-10.2); Carbon Dioxide 23 mmol/L (22-30); Chloride 105 mmol/L (98-107); Glucose 96 mg/dL (74-99); Lipase 84 U/L (23-300); Magnesium 1.9 mg/dL (1.6-2.3); Non-African American GFR(CKD) >90 (>60 ml/min/1.73 sqM); Potassium 4.4 mmol/L (3.5-5.1); Sodium 139 mmol/L (137-145); Total Bilirubin 0.5 mg/dL (0.2-1.3); Total Protein 7.3 g/dL (6.3-8.2)
[2022-07-27] MEDS ORDERED: METOCLOPRAMIDE 5 MG/ML 2 ML VIAL IVP STA (13:18)
--- NOTE | 2022-07-27 13:35 | ED ---
General Adult HPI - General Chief complaint: GI Bleed Stated complaint: coughing blood Time Seen by Provider: 07/27/22 11:42 Source: patient, RN notes reviewed Mode of arrival: ambulatory Limitations: no limitations - History of Present Illness Initial comments: 31-year-old female presents emergency Department chief complaint of not feeling well. Patient states that she's had increase in nausea, vomiting. Patient states she noticed some blood in her emesis. Patient states she felt like she is gagging and coughed up some blood. Patient denies any chest pain or shortness of breath. Patient states she is currently been referred to [facility] for pots. Patient states that she's had no medication changes. Patient denies any fevers or chills. Patient denies any localized abdominal pain. Patient offers no complaints. - Related Data Home Medications Medication Instructions Recorded Confirmed Vit No.180/Iron/Folic 1 each PO DAILY 08/05/19 12/17/19 [ Plus Tablet] Previous Rx's Medication Instructions Recorded Ascorbic Acid [Vitamin C] 500 mg PO BID #30 tablet 02/23/21 Ergocalciferol (Vitamin D2) 50 mcg PO DAILY #15 tab 02/23/21 [Vitamin D2 (2000 Iu)] Zinc 50 mg PO BID #30 tablet 02/23/21 Metoclopramide [Reglan] 10 mg PO TID PRN #15 tab 07/27/22 Omeprazole [PriLOSEC] 40 mg PO DAILY #14 cap 07/27/22 Allergies Allergy/AdvReac Type Severity Reaction Status Date / Time acetaminophen Allergy Mild Nausea & Verified 07/27/22 10:34 [From Tylenol-Codeine #3] Vomiting codeine Allergy Mild Nausea & Verified 07/27/22 10:34 [From Tylenol-Codeine #3] Vomiting almond Allergy Unknown Verified 07/27/22 10:34 barley Allergy Unknown Verified 07/27/22 10:34 black pepper Allergy Unknown Verified 07/27/22 10:34 Mushroom Allergy Unknown Verified 07/27/22 10:34 shellfish derived [Lobster] Allergy Unknown Verified 07/27/22 10:34 [place] Seed Allergy Unknown Verified 07/27/22 10:34 wheat Allergy Unknown Verified 07/27/22 10:34 Yeast Allergy Unknown Verified 07/27/22 10:34 gluten AdvReac Nausea & Verified 07/27/22 10:34 Vomiting Milk Containing Products AdvReac Abdominal Verified 07/27/22 10:34 [Dairy] Pain NELLIE SEEDS Allergy Unknown Uncoded 07/27/22 10:34 Review of Systems ROS Statement: Those systems with pertinent positive or pertinent negative responses have been documented in the HPI. ROS Other: All systems not noted in ROS Statement are negative. Past Medical History Past Medical History: Eye Disorder, Neurologic Disorder, Syncope Additional Past Medical History / Comment(s): Optic neuritis in past (has caused visual loss bilateral eyes), POTS-hyponatremia and has had past syncopal episod e, bouts of weakness and shooting pain down extremities at times-being worked up for MS, MRI showed lesions/LP was negative per pt, possible asthma. History of Any Multi-Drug Resistant Organisms: None Reported Past Surgical History: Adenoidectomy, Coronary Bypass/CABG Additional Past Surgical History / Comment(s): Open heart for congenital defect- ASD, colonoscopy. Past Anesthesia/Blood Transfusion Reactions: No Reported Reaction Past Psychological History: No Psychological Hx Reported Smoking Status: Never smoker Past Alcohol Use History: Rare Past Drug Use History: None Reported - Past Family History Sister(s) History Unknown: Yes Family Medical History: No Reported History Additional Family Medical History / Comment(s): Pt was adopted. Father History Unknown: Yes Additional Family Medical History / Comment(s): Pt was adopted. General Exam Limitations: no limitations General appearance: alert, in no apparent distress Head exam: Present: atraumatic, normocephalic, normal inspection Eye exam: Present: normal appearance, PERRL, EOMI. Absent: scleral icterus, conjunctival injection, periorbital swelling ENT exam: Present: normal exam, normal oropharynx, mucous membranes moist Neck exam: Present: normal inspection, full ROM. Absent: tenderness, meningism us, lymphadenopathy Respiratory exam: Present: normal lung sounds bilaterally. Absent: respiratory distress, wheezes, rales, rhonchi, stridor Cardiovascular Exam: Present: regular rate, normal rhythm, normal heart sounds. Absent: systolic murmur, diastolic murmur, rubs, gallop, clicks GI/Abdominal exam: Present: soft, normal bowel sounds. Absent: distended, tenderness, guarding, rebound, rigid Course Vital Signs 07/27/22 10:32 Temperature 98.1 F Pulse Rate 86 Respiratory 20 Rate Blood Pressure 127/84 O2 Sat by Pulse 99 Oximetry Medical Decision Making - Medical Decision Making Patient has a negative workup including labs, EKG patient feels greatly improved after IV fluids and antiemetics. Patient discharged on omeprazole, Reglan. Return parameters discussed. - Lab Data Result diagrams: 07/27/22 12:32 07/27/22 12:32 Lab Results 07/27/22 07/27/22 07/27/22 Range/Units 12:32 12:32 12:32 WBC 4.1 (3.8-10.6) k/uL RBC 4.15 (3.80-5.40) m/uL Hgb 13.7 (11.4-16.0) gm/dL Hct 40.1 (34.0-46.0) % MCV 96.5 (80.0-100.0) fL MCH 33.1 (25.0-35.0) pg MCHC 34.3 (31.0-37.0) g/dL RDW 12.2 (11.5-15.5) % Plt Count 239 (150-450) k/uL MPV 8.6 Neutrophils % 50 % Lymphocytes % 32 % Monocytes % 8 % Eosinophils % 7 % Basophils % 1 % Neutrophils # 2.0 (1.3-7.7) k/uL Lymphocytes # 1.3 (1.0-4.8) k/uL Monocytes # 0.3 (0-1.0) k/uL Eosinophils # 0.3 (0-0.7) k/uL Basophils # 0.0 (0-0.2) k/uL PT 10.4 (9.0-12.0) sec INR 0.9 (<1.2) APTT 25.4 (22.0-30.0) sec D-Dimer <0.17 (<0.60) mg/L FEU Sodium 139 (137-145) mmol/L Potassium 4.4 (3.5-5.1) mmol/L Chloride 105 (98-107) mmol/L Carbon Dioxide 23 (22-30) mmol/L Anion Gap 11 mmol/L BUN 11 (7-17) mg/dL Creatinine 0.62 (0.52-1.04) mg/dL Est GFR (CKD-EPI)AfAm >90 (>60 ml/min/1.73 sqM) Est GFR (CKD-EPI)NonAf >90 (>60 ml/min/1.73 sqM) Glucose 96 (74-99) mg/dL Plasma Lactic Acid Zheng (0.7-2.0) mmol/L Calcium 9.2 (8.4-10.2) mg/dL Magnesium 1.9 (1.6-2.3) mg/dL Total Bilirubin 0.5 (0.2-1.3) mg/dL AST 17 (14-36) U/L ALT 11 (4-34) U/L Alkaline Phosphatase 56 (38-126) U/L Total Protein 7.3 (6.3-8.2) g/dL Albumin 4.8 (3.5-5.0) g/dL Lipase 84 (23-300) U/L Urine Color Urine Appearance (Clear) Urine pH (5.0-8.0) Ur Specific Nash (1.001-1.035) Urine Protein (Negative) Urine Glucose (UA) (Negative) Urine Ketones (Negative) Urine Blood (Negative) Urine Nitrite (Negative) Urine Bilirubin (Negative) Urine Urobilinogen (<2.0) mg/dL Ur Leukocyte Esterase (Negative) Urine HCG, Qual (Not Detectd) 07/27/22 07/27/22 07/27/22 Range/Units 12:32 12:40 12:40 WBC (3.8-10.6) k/uL RBC (3.80-5.40) m/uL Hgb (11.4-16.0) gm/dL Hct (34.0-46.0) % MCV (80.0-100.0) fL MCH (25.0-35.0) pg MCHC (31.0-37.0) g/dL RDW (11.5-15.5) % Plt Count (150-450) k/uL MPV Neutrophils % % Lymphocytes % % Monocytes % % Eosinophils % % Basophils % % Neutrophils # (1.3-7.7) k/uL Lymphocytes # (1.0-4.8) k/uL Monocytes # (0-1.0) k/uL Eosinophils # (0-0.7) k/uL Basophils # (0-0.2) k/uL PT (9.0-12.0) sec INR (<1.2) APTT (22.0-30.0) sec D-Dimer (<0.60) mg/L FEU Sodium (137-145) mmol/L Potassium (3.5-5.1) mmol/L Chloride (98-107) mmol/L Carbon Dioxide (22-30) mmol/L Anion Gap mmol/L BUN (7-17) mg/dL Creatinine (0.52-1.04) mg/dL Est GFR (CKD-EPI)AfAm (>60 ml/min/1.73 sqM) Est GFR (CKD-EPI)NonAf (>60 ml/min/1.73 sqM) Glucose (74-99) mg/dL Plasma Lactic Acid Zheng 0.9 (0.7-2.0) mmol/L Calcium (8.4-10.2) mg/dL Magnesium (1.6-2.3) mg/dL Total Bilirubin (0.2-1.3) mg/dL AST (14-36) U/L ALT (4-34) U/L Alkaline Phosphatase (38-126) U/L Total Protein (6.3-8.2) g/dL Albumin (3.5-5.0) g/dL Lipase (23-300) U/L Urine Color Colorless Urine Appearance Clear (Clear) Urine pH 7.5 (5.0-8.0) Ur Specific Nash 1.007 (1.001-1.035) Urine Protein Negative (Negative) Urine Glucose (UA) Negative (Negative) Urine Ketones Negative (Negative) Urine Blood Negative (Negative) Urine Nitrite Negative (Negative) Urine Bilirubin Negative (Negative) Urine Urobilinogen <2.0 (<2.0) mg/dL Ur Leukocyte Esterase Negative (Negative) Urine HCG, Qual Not Detected (Not Detectd) Disposition Clinical Impression: Hematemesis, Abdominal pain Disposition: HOME SELF-CARE Condition: Stable Instructions (If sedation given, give patient instructions): Abdominal Pain (ED) Additional Instructions: Please return to the Emergency Department if symptoms worsen or any other concerns. Prescriptions: Omeprazole [PriLOSEC] 40 mg PO DAILY #14 cap Metoclopramide [Reglan] 10 mg PO TID PRN #15 tab PRN Reason: Nausea Is patient prescribed a controlled substance at d/c from ED?: No Referrals: George De Anda MD [Primary Care Provider] - 1-2 days Bing Victoria MD [STAFF PHYSICIAN] - 1-2 days Time of Disposition: 14:11
[2022-07-27 14:21] VITALS: BP 124/60; PULSE 70
== END 2022-07-27 14:22 | disposition home or self-care (01) ==
LOC: EC 10:08
DX: K92.0 Hematemesis (principal); R10.9 Unspecified abdominal pain; Z88.6 Allergy status to analgesic agent; Z88.5 Allergy status to narcotic agent; Z91.018 Allergy to other foods; Z91.013 Allergy to seafood; Z91.011 Allergy to milk products; Z79.899 Other long term (current) drug therapy
CPT/HCPCS: 36415; 80053; 81003; 81025; 83605; 83690; 83735; 85025; 85379; 85610; 85730; 96361; 96374; 96375; 99285

== ENCOUNTER → 2023-06-22 | Outpatient (CLI) | payer BC ==
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
== END | disposition home or self-care (01) ==
LOC: RADCTMAIN 13:03
PROVIDERS: ATTEND Family Medicine
DX: S06.0X0A Concussion without loss of consciousness, initial encounter (principal); J32.4 Chronic pansinusitis; X58.XXXA Exposure to other specified factors, initial encounter
CPT/HCPCS: 70450

== ENCOUNTER → 2023-09-28 | Outpatient (CLI) | payer BC ==
--- NOTE | 2023-09-28 09:35 | MM ---
Reason for Exam: Additional evaluation requested from abnormal screening. Last screening mammogram was performed 9 month(s) ago. Patient History: Menarche at age 14. First Full-Term at age 31. Late child-bearing (after 30). Premenopausal. Patient has history of breast feeding. Hormonal Contraceptives for 4 years from age 14 until age 18. Last menstrual period: 09/10/2023 Prior Study Comparison: 12/31/2022 Bilateral MG 3D diag mammo w/cad [facility]. Tissue Density: The breast tissue is heterogeneously dense. This may lower the sensitivity of mammography. Findings: Analyzed By CAD. No new suspicious mass or architectural distortion within either breast. Diffuse bilateral microcalcifications without suspicious clustering redemonstrated in both breasts. Overall Assessment: Benign, BI-RAD 2 Management: Screening Mammogram of both breasts in 1 year. A clinical breast exam by your physician is recommended on an annual basis and results should be correlated with mammographic findings. This exam should not preclude additional follow-up of suspicious palpable abnormalities. Results were given to the patient verbally at the time of exam. Electronically signed and approved by: Gary Hardin D.O.
--- NOTE | 2023-09-28 10:02 | USB ---
Reason for Exam: Clinical finding. Patient History: Menarche at age 14. First Full-Term at age 31. Late child-bearing (after 30). Premenopausal. Patient has history of breast feeding. Hormonal Contraceptives for 4 years from age 14 until age 18. Technique: Method: Targeted. Prior Study Comparison: 12/31/2022 Bilateral MG 3D diag mammo w/cad [facility]. Findings: The axilla of both breasts was scanned. Ultrasound of the right axilla was performed. No suspicious mass identified. Normal-appearing small lymph node identified. Overall Assessment: Negative, BI-RAD 1 Management: Screening Mammogram of both breasts at age 40. Clinical management for patient's pain. A clinical breast exam by your physician is recommended on an annual basis and results should be correlated with mammographic findings. This exam should not preclude additional follow-up of suspicious palpable abnormalities. Results were given to the patient verbally at the time of exam. Electronically signed and approved by: Gary Hardin D.O.
--- NOTE | 2023-09-28 10:03 | USB ---
Reason for Exam: Clinical finding. Patient History: Menarche at age 14. First Full-Term at age 31. Late child-bearing (after 30). Premenopausal. Patient has history of breast feeding. Hormonal Contraceptives for 4 years from age 14 until age 18. Technique: Method: Targeted. Prior Study Comparison: 12/31/2022 Bilateral MG 3D diag mammo w/cad [facility]. Findings: The axilla of both breasts was scanned. Left axillary ultrasound was performed. No suspicious masses identified. Normal lymph nodes identified with central fatty hilum. Overall Assessment: Negative, BI-RAD 1 Management: Screening Mammogram of both breasts at age 40. Clinical management for patient's pain. A clinical breast exam by your physician is recommended on an annual basis and results should be correlated with mammographic findings. This exam should not preclude additional follow-up of suspicious palpable abnormalities. Results were given to the patient verbally at the time of exam. Electronically signed and approved by: Gary Hardin D.O.
== END | disposition home or self-care (01) ==
LOC: RADMAMWWP 08:58
PROVIDERS: ATTEND Family Medicine
DX: R92.333 Mammographic heterogeneous density, bilateral breasts (principal); M79.621 Pain in right upper arm; Z76.89 Persons encountering health services in other specified circumstances; Z79.621 Long term (current) use of calcineurin inhibitor
CPT/HCPCS: 77062; 77066

== ENCOUNTER 2024-02-01 23:04 | Emergency (ER) | payer OTHER, BC ==
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
[2024-02-01 23:32] VITALS: BP 133/87; PULSE 86; RESP 18; TEMP 100.8
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
[2024-02-02] MEDS: ACETAMINOPHEN TAB 500 MG TAB PO STA (00:51)
== END 2024-02-02 00:53 | disposition home or self-care (01) ==
LOC: EC 23:04
DX: M25.511 Pain in right shoulder (principal); Z91.013 Allergy to seafood; Z91.011 Allergy to milk products; Z88.8 Allergy status to other drugs, medicaments and biological substances; V89.2XXA Person injured in unspecified motor-vehicle accident, traffic, initial encounter; Y92.410 Unspecified street and highway as the place of occurrence of the external cause
CPT/HCPCS: 71046; 72040; 73502; 99284

== ENCOUNTER → 2024-04-06 | Outpatient (CLI) | payer BC ==
--- NOTE | 2024-04-06 14:45 | XR ---
EXAMINATION TYPE: XR facial bones complete DATE OF EXAM: 04/06/2024 COMPARISON: None HISTORY: Facial bones, contusion TECHNIQUE: Facial bones examination 3 projections. FINDINGS: Mandible and maxilla appear intact. Nasal bones and maxillary spine appear intact. Paranasa l sinuses are clear. Sella is unremarkable. No acute fractures are identified. Orbits appear intact. Orbital floors appear intact. Medial guan o f the orbit are unremarkable. There may be a subtle lucency within the right vertex. Consider urinalysis for multiple myeloma. IMPRESSION: 1. No acute osseous abnormality. 2. Nonspecific subtle lucency within the right vertex. Consider multiple myeloma within the different ial.
== END | disposition home or self-care (01) ==
LOC: RADXRMAIN 14:10
PROVIDERS: ATTEND Nurse Practitioner Family
DX: S00.83XA Contusion of other part of head, initial encounter (principal); X58.XXXA Exposure to other specified factors, initial encounter
CPT/HCPCS: 70150

== ENCOUNTER 2025-01-25 05:19 | Emergency (ER) | payer BC ==
[2025-01-25 05:35] VITALS: PULSE 82; TEMP 98.1
[2025-01-25] MEDS: KETOROLAC 15 MG/ML 1 ML VIAL IM STA (06:53)
[2025-01-25] MEDS: ORPHENADRINE 30 MG/ML 2 ML VIAL IM STA (06:55)
[2025-01-25] MEDS: LIDOCAINE 4% PATCH TOPICAL ONE (06:58)
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
[2025-01-25 08:05] VITALS: BP 134/88; RESP 20
== END 2025-01-25 08:05 | disposition home or self-care (01) ==
LOC: EC 05:19
DX: M62.838 Other muscle spasm (principal); Z88.5 Allergy status to narcotic agent; Z88.6 Allergy status to analgesic agent; Z88.8 Allergy status to other drugs, medicaments and biological substances; Z91.02 Food additives allergy status; Z91.011 Allergy to milk products; Z91.018 Allergy to other foods
CPT/HCPCS: 99283; 96372 ×2; J2360; J1885